=== PATIENT | male | born 1945 ===

== ENCOUNTER 2018-02-13 14:57 | Observation (INO) | payer MEDICARE, OTHER ==
[2018-02-13 15:38] LABS: BASO # 0.1 K/uL (0.0-0.2); EOS # 0.4 K/uL (0.0-0.7); EOS % 6.2 % (0.0-4.0); HEMOGLOBIN 13.4 g/dL (12.0-18.0); LYMPH # 1.3 K/uL (1.0-4.3); MEAN CELL VOLUME 86.7 fl (80.0-94.0); MEAN CORPUSCULAR HEMOGLOBIN 28.4 pg (27.0-31.0); MEAN CORPUSCULAR HGB CONC 32.8 g/dL (33.0-37.0); MEAN PLATELET VOLUME 11.1 fl (7.2-11.7); MONO # 0.7 K/uL (0.0-0.8); MONO % 12.3 % (0.0-10.0); NEUT # 3.3 K/uL (1.8-7.0); NEUT % 58.5 % (50.0-75.0); RBC 4.72 Mil/uL (4.40-5.90); RED CELL DISTRIBUTION WIDTH 15.1 % (11.5-14.5); WHITE BLOOD COUNT 5.7 K/uL (4.8-10.8)
[2018-02-13 15:50] LABS: ALBUMIN 3.9 g/dL (3.5-5.0); ALT/SGPT 89 U/L (21-72); AST/SGOT 114 U/L (17-59); BLOOD UREA NITROGEN 26 mg/dl (9-20); CALCIUM 10.1 mg/dL (8.4-10.2); GFR NON-AFRICAN AMERICAN 37
--- NOTE | 2018-02-13 16:00 | RAD ---
Date of service: 02/13/2018 HISTORY: chest pain/ r/o infiltrate COMPARISON: No prior. TECHNIQUE: Chest PA and lateral FINDINGS: LUNGS: No active pulmonary disease. PLEURA: No significant pleural effusion identified. No pneumothorax apparent. CARDIOVASCULAR: Normal. OSSEOUS STRUCTURES: No significant abnormalities. VISUALIZED UPPER ABDOMEN: Normal. OTHER FINDINGS: None. IMPRESSION: No active disease.
[2018-02-13 16:02] LABS: B-TYPE NATRIURETIC PEPTIDE 229 pg/ml (0-900)
--- NOTE | 2018-02-13 16:53 | ED PDOC ---
HPI: Chest Pain Time Seen by Provider: 02/13/18 15:21 Chief Complaint (Nursing): Chest Pain Chief Complaint (Provider): Chest Pain History Per: Patient History/Exam Limitations: no limitations Onset/Duration Of Symptoms: Hrs Additional Complaint(s): Patient is a 72 y/o male with history of hypertension and diabetes who presents to the ED with his family complaining of chest pain requiring nitro use x3 times this afternoon. Patient describes chest pain as sharp and left sided with radiation to shoulder associated with dizziness. Last time patient need nitro was x2 weeks ago when he was walking down the street. He denies history of cardiac catheters or stents. Patient states he takes aspirin daily. He has no other complaints at this time and denies any pain in the ER. PMD: Jasmyne Court Reporter: Haroon Past Medical History Reviewed: Historical Data, Nursing Documentation, Vital Signs Vital Signs: Last Vital Signs Temp 98 F 02/13/18 15:05 Pulse 64 02/13/18 15:05 Resp 20 02/13/18 15:05 BP 105/57 L 02/13/18 15:05 Pulse Ox 100 02/13/18 15:05 - Medical History PMH: HTN, Hyperlipidemia - Social History Current smoker - smoking cessation education provided: No - Allergies Allergies/Adverse Reactions: Allergies Allergy/AdvReac Type Severity Reaction Status Date / Time No Known Allergies Allergy Verified 02/13/18 15:05 Review of Systems ROS Statement: Except As Marked, All Systems Reviewed And Found Negative Cardiovascular: Positive for: Chest Pain Neurological: Positive for: Dizziness Physical Exam - Reviewed Nursing Documentation Reviewed: Yes Vital Signs Reviewed: Yes - Physical Exam Appears: Positive for: Non-toxic, No Acute Distress Head Exam: Positive for: ATRAUMATIC, NORMOCEPHALIC Skin: Positive for: Normal Color, Warm, Dry Eye Exam: Positive for: EOMI, Normal appearance, PERRL Neck: Positive for: Normal, Painless ROM Cardiovascular/Chest: Positive for: Regular Rate, Rhythm. Negative for: Murmur Respiratory: Positive for: Normal Breath Sounds. Negative for: Respiratory Distress Gastrointestinal/Abdominal: Positive for: Normal Exam, Soft. Negative for: Tenderness Back: Positive for: Normal Inspection. Negative for: L CVA Tenderness, R CVA Tenderness Extremity: Positive for: Normal ROM. Negative for: Pedal Edema, Deformity Neurologic/Psych: Positive for: Alert, Oriented. Negative for: Motor/Sensory Deficits - Laboratory Results Result Diagrams: 02/13/18 15:34 02/13/18 15:34 - ECG ECG Rhythm: Positive for: Normal QRS, Normal ST Segment Rate: 64 O2 Sat by Pulse Oximetry: 100 (RA) Pulse Ox Interpretation: Normal Medical Decision Making Medical Decision Making: Time: 15:21 Impression: Chest pain with dizziness Initial Plan: EKG BNP CMP Troponin I CBC w/ diff CXR Time: 15:56 FINDINGS: LUNGS: No active pulmonary disease. PLEURA: No significant pleural effusion identified. No pneumothorax apparent. CARDIOVASCULAR: Normal. OSSEOUS STRUCTURES: No significant abnormalities. VISUALIZED UPPER ABDOMEN: Normal. OTHER FINDINGS: None. IMPRESSION: No active disease. Time: 16:50 Blood work reviewed: -- Troponin is negative --mildly elevated kidney function EKG Reviewed: --NSR at 64; no ST changes - Scribe Attestation: Documented by Slade Gonzalez, acting as a scribe for Jose Marr MD. Provider Scribe Attestation: All medical record entries made by the Scribe were at my direction and personally dictated by me. I have reviewed the chart and agree that the record accurately reflects my personal performance of the history, physical exam, medical decision making, and the department course for this patient. I have also personally directed, reviewed, and agree with the discharge Disposition - Disposition
--- NOTE | 2018-02-13 18:47 | CP.PCM.CON ---
History of Present Illness - History of Present Illness History of Present Illness: Consultation for chest pain HPI: Patient is a 72 y/o male with history of hypertension and diabetes who presents to the ED with his family complaining of chest pain requiring nitro use x3 times this afternoon. Patient describes chest pain as sharp and left sided with radiation to shoulder associated with dizziness. Last time patient need nitro was x2 weeks ago when he was walking down the street. He denies history of cardiac catheters or stents. Patient states he takes aspirin daily. He has no other complaints at this time and denies any pain in the ER. PMD: Gastel Review of Systems - Review of Systems Systems not reviewed;Unavailable: Acuity of Condition - Constitutional Constitutional: As Per HPI - EENT Eyes: As Per HPI Ears: As Per HPI Nose/Mouth/Throat: As Per HPI - Cardiovascular Cardiovascular: As Per HPI - Respiratory Respiratory: As Per HPI - Gastrointestinal Gastrointestinal: As Per HPI - Genitourinary Genitourinary: As Per HPI - Reproductive: Male Reproductive:Male: As Per HPI - Musculoskeletal Musculoskeletal: As Per HPI - Integumentary Integumentary: As Per HPI - Neurological Neurological: As Per HPI - Psychiatric Psychiatric: As Per HPI - Endocrine Endocrine: As Per HPI - Hematologic/Lymphatic Hematologic: As Per HPI Past Patient History - Past Social History Smoking Status: Light Smoker < 10 Cigarettes Daily - CARDIAC Hx Hypertension: Yes - ENDOCRINE/METABOLIC Hx Diabetes Mellitus Type 1: Yes - PSYCHIATRIC Hx Substance Use: No - SURGICAL HISTORY Hx Surgeries: Yes Hx Herniorrhaphy: Yes - ANESTHESIA Hx Anesthesia: Yes Hx Anesthesia Reactions: No Hx Malignant Hyperthermia: Yes Meds Allergies/Adverse Reactions: Allergies Allergy/AdvReac Type Severity Reaction Status Date / Time No Known Allergies Allergy Verified 02/13/18 15:05 Physical Exam - Constitutional Appears: Well - Head Exam Head Exam: ATRAUMATIC, NORMAL INSPECTION, NORMOCEPHALIC - Eye Exam Eye Exam: EOMI, Normal appearance, PERRL Pupil Exam: NORMAL ACCOMODATION, PERRL - ENT Exam ENT Exam: Mucous Membranes Moist, Normal Exam - Neck Exam Neck exam: Positive for: Normal Inspection - Respiratory Exam Respiratory Exam: Clear to Auscultation Bilateral, NORMAL BREATHING PATTERN - Cardiovascular Exam Cardiovascular Exam: REGULAR RHYTHM - GI/Abdominal Exam GI & Abdominal Exam: Normal Bowel Sounds, Soft. absent: Tenderness - Extremities Exam Extremities exam: Positive for: normal inspection - Back Exam Back exam: NORMAL INSPECTION - Neurological Exam Neurological exam: Alert, CN II-XII Intact, Normal Gait, Oriented x3, Reflexes Normal - Psychiatric Exam Psychiatric exam: Normal Affect, Normal Mood - Skin Skin Exam: Dry, Intact, Normal Color, Warm Results - Vital Signs Recent Vital Signs: Last Vital Signs Temp 98 F 02/13/18 15:05 Pulse 62 02/13/18 18:42 Resp 19 02/13/18 18:42 BP 128/50 L 02/13/18 18:42 Pulse Ox 98 02/13/18 18:42 - Labs Result Diagrams: 02/13/18 15:34 02/13/18 15:34 Labs: Laboratory Results - last 24 hr 02/13/18 02/13/18 15:34 15:34 WBC 5.7 RBC 4.72 Hgb 13.4 Hct 40.9 MCV 86.7 MCH 28.4 MCHC 32.8 L RDW 15.1 H Plt Count 155 MPV 11.1 Neut % (Auto) 58.5 Lymph % (Auto) 22.0 [place] % (Auto) 12.3 H Eos % (Auto) 6.2 H Baso % (Auto) 1.0 Neut # (Auto) 3.3 Lymph # (Auto) 1.3 [place] # (Auto) 0.7 Eos # (Auto) 0.4 Baso # (Auto) 0.1 Sodium 139 Potassium 4.2 Chloride 105 Carbon Dioxide 22 Anion Gap 16 BUN 26 H Creatinine 1.8 H Est GFR ( Amer) 45 Est GFR (Non-Af Amer) 37 Random Glucose 185 H Calcium 10.1 Total Bilirubin 0.7 AST 114 H ALT 89 H Alkaline Phosphatase 113 Troponin I < 0.0120 NT-Pro-B Natriuret Pep 229 Total Protein 7.7 Albumin 3.9 Globulin 3.9 Albumin/Globulin Ratio 1.0 Assessment & Plan (1) Chest pain due to CAD Status: Acute
--- NOTE | 2018-02-13 19:12 | CP.PCM.HP ---
<Yandel Yoder - Last Filed: 02/13/18 21:43> History of Present Illness - History of Present Illness History of Present Illness: CC: "i had chest pain today" HPI: 72 y/o male with PMHx of HTN, IDDM2, Prostate CA presented for evaluation of chest pain. Pt reports he was sitting in a cigar lounge when he had a sudden onset of pressure like chest pain located on the left upper sternal area. It was nonradiating. He denied any other associated symptoms. Pt reports pain lasted approx 15 minutes and resolved after 3 SL tabs of nitroglycerin. He was then brought to the ER by EMS. He denies any further episodes of chest pain. Denies any history of fever/chills, headaches, changes in vision, [place]/exertional CP/orthopnea/palpitations, N/V/D/C, numbness/tingling. ROS: 12 systems reviewed, found to be negative unless otherwise mentioned in HPI PMD: Jasmyne Savings Teller: Haroon PMHx: HTN, IDDM, Glaucoma, Prostate CA Meds: as per med rec ALL: NKDA PSurgHx: cataracts/glaucoma, hernia repair SocialHx: former smoker (quit 20 years ago), social cigars, social ETOH, denies drugs Familyhx: OR in mother and brother Present on Admission - Present on Admission Any Indicators Present on Admission: No History of DVT/PE: No History of Uncontrolled Diabetes: No Urinary Catheter: No Decubitus Ulcer Present: No Past Patient History - Past Medical History & Family History Past Medical History?: Yes - Past Social History Smoking Status: Light Smoker < 10 Cigarettes Daily Alcohol: Social Drugs: Denies Home Situation {Lives}: With Family - CARDIAC Hx Hypertension: Yes - ENDOCRINE/METABOLIC Hx Diabetes Mellitus Type 1: Yes - PSYCHIATRIC Hx Substance Use: No - SURGICAL HISTORY Hx Surgeries: Yes Hx Herniorrhaphy: Yes - ANESTHESIA Hx Anesthesia: Yes Hx Anesthesia Reactions: No Hx Malignant Hyperthermia: Yes Meds Allergies/Adverse Reactions: Allergies Allergy/AdvReac Type Severity Reaction Status Date / Time No Known Allergies Allergy Verified 02/13/18 15:05 Physical Exam - Constitutional Appears: Non-toxic, No Acute Distress - Head Exam Head Exam: ATRAUMATIC, NORMOCEPHALIC - Eye Exam Eye Exam: EOMI, PERRL. absent: Nystagmus, Scleral icterus - ENT Exam ENT Exam: Mucous Membranes Moist - Neck Exam Neck exam: Negative for: Lymphadenopathy - Respiratory Exam Respiratory Exam: Clear to Auscultation Bilateral, NORMAL BREATHING PATTERN. absent: Accessory Muscle Use, Prolonged Expiratory Phase, Rales, Rhonchi, Wheezes - Cardiovascular Exam Cardiovascular Exam: REGULAR RHYTHM, RRR, +S1, +S2. absent: Gallop, Irregular Rhythm, JVD, Rubs, Systolic Murmur - GI/Abdominal Exam GI & Abdominal Exam: Normal Bowel Sounds, Soft. absent: Tenderness - Extremities Exam Extremities exam: Positive for: normal capillary refill, normal inspection, peda l pulses present. Negative for: calf tenderness, pedal edema, tenderness - Neurological Exam Neurological exam: Alert, CN II-XII Intact, Oriented x3 - Psychiatric Exam Psychiatric exam: Normal Affect, Normal Mood - Skin Skin Exam: Dry, Intact, Normal Color, Warm Results - Vital Signs Recent Vital Signs: Last Vital Signs Temp 98 F 02/13/18 15:05 Pulse 62 02/13/18 18:42 Resp 19 02/13/18 18:42 BP 128/50 L 02/13/18 18:42 Pulse Ox 98 02/13/18 18:42 - Labs Result Diagrams: 02/13/18 15:34 02/13/18 15:34 Labs: Laboratory Results - last 24 hr 02/13/18 02/13/18 15:34 15:34 WBC 5.7 RBC 4.72 Hgb 13.4 Hct 40.9 MCV 86.7 MCH 28.4 MCHC 32.8 L RDW 15.1 H Plt Count 155 MPV 11.1 Neut % (Auto) 58.5 Lymph % (Auto) 22.0 Bertie % (Auto) 12.3 H Eos % (Auto) 6.2 H Baso % (Auto) 1.0 Neut # (Auto) 3.3 Lymph # (Auto) 1.3 Bertie # (Auto) 0.7 Eos # (Auto) 0.4 Baso # (Auto) 0.1 Sodium 139 Potassium 4.2 Chloride 105 Carbon Dioxide 22 Anion Gap 16 BUN 26 H Creatinine 1.8 H Est GFR ( Amer) 45 Est GFR (Non-Af Amer) 37 Random Glucose 185 H Calcium 10.1 Total Bilirubin 0.7 AST 114 H ALT 89 H Alkaline Phosphatase 113 Troponin I < 0.0120 NT-Pro-B Natriuret Pep 229 Total Protein 7.7 Albumin 3.9 Globulin 3.9 Albumin/Globulin Ratio 1.0 Assessment & Plan - Assessment and Plan (Free Text) Assessment: 72 y/o male with PMHx of IDDM, HTN, and prostate CA admitted for evaluation of chest pain. Plan: 1) Chest Pain -EKG in ED unremarkable -troponin <0.0120 -NT-BNP: wnl -trend troponin Q6H -tele monitoring -AM EKG -cardiology consult -SL nitro PRN 2) HTN -controlled -resume home meds 3) IDDM -stable -lispro correction scale -resume home meds 4) Diet -heart healthy/mod carb 5) Prophylaxis -lovenox 40mg SC QD 6) Code Status -full code <Kain Muller - Last Filed: 02/14/18 09:27> Results - Vital Signs Recent Vital Signs: Last Vital Signs Temp 98.1 F 02/14/18 04:00 Pulse 60 02/14/18 09:15 Resp 18 02/14/18 04:47 BP 163/80 H 02/14/18 09:15 Pulse Ox 99 02/14/18 04:00 - Labs Result Diagrams: 02/13/18 15:34 02/13/18 15:34 Labs: Laboratory Results - last 24 hr 02/13/18 02/13/18 02/13/18 15:34 15:34 21:49 WBC 5.7 RBC 4.72 Hgb 13.4 Hct 40.9 MCV 86.7 MCH 28.4 MCHC 32.8 L RDW 15.1 H Plt Count 155 MPV 11.1 Neut % (Auto) 58.5 Lymph % (Auto) 22.0 Bertie % (Auto) 12.3 H Eos % (Auto) 6.2 H Baso % (Auto) 1.0 Neut # (Auto) 3.3 Lymph # (Auto) 1.3 Bertie # (Auto) 0.7 Eos # (Auto) 0.4 Baso # (Auto) 0.1 Sodium 139 Potassium 4.2 Chloride 105 Carbon Dioxide 22 Anion Gap 16 BUN 26 H Creatinine 1.8 H Est GFR ( Amer) 45 Est GFR (Non-Af Amer) 37 POC Glucose (mg/dL) 126 H Random Glucose 185 H Calcium 10.1 Total Bilirubin 0.7 AST 114 H ALT 89 H Alkaline Phosphatase 113 Troponin I < 0.0120 NT-Pro-B Natriuret Pep 229 Total Protein 7.7 Albumin 3.9 Globulin 3.9 Albumin/Globulin Ratio 1.0 02/14/18 02/14/18 06:30 09:20 WBC RBC Hgb Hct MCV MCH MCHC RDW Plt Count MPV Neut % (Auto) Lymph % (Auto) Bertie % (Auto) Eos % (Auto) Baso % (Auto) Neut # (Auto) Lymph # (Auto) Bertie # (Auto) Eos # (Auto) Baso # (Auto) Sodium Potassium Chloride Carbon Dioxide Anion Gap BUN Creatinine Est GFR ( Amer) Est GFR (Non-Af Amer) POC Glucose (mg/dL) 257 H Random Glucose Calcium Total Bilirubin AST ALT Alkaline Phosphatase Troponin I < 0.0120 NT-Pro-B Natriuret Pep Total Protein Albumin Globulin Albumin/Globulin Ratio Attending/Attestation - Attestation I have personally seen and examined this patient.: Yes I have fully participated in the care of the patient.: Yes I have reviewed all pertinent clinical information: Yes Notes (Text): 02/14/18 09:26 Patient was seen and examined with resident. Case was discussed and agreed with assessment and plan of management.
[2018-02-13] MEDS ORDERED: Dextrose 50% SYRINGE Inj (50 ml) IV PRN (19:16)
[2018-02-13] MEDS ORDERED: Glucagon Recombinant 1 mg Inj IM PRN (19:16)
[2018-02-13] MEDS: Insulin Lispro (humaLOG) 100 Units/ml Inj SC SCH (21:50)
[2018-02-13] MEDS ORDERED: Latanoprost 0.005% Opht SOUTION OU SCH (22:00)
[2018-02-13 23:59] VITALS: RESP 18; O2SAT 99
[2018-02-14 05:42] VITALS: TEMP 98.1
[2018-02-14] MEDS ORDERED: INSULIN GLARGINE HUM REC ANLOG 30 UNIT SC SCH (09:00)
[2018-02-14] MEDS: Brimonidine 0.2% 50 DROP/5 ML BOTTLE OU SCH ×2 (09:14→13:18)
[2018-02-14 09:17] VITALS: BP 163/80; PULSE 60
[2018-02-14] MEDS: Insulin Lispro (humaLOG) 100 Units/ml Inj SC SCH ×2 (09:23→13:00)
--- NOTE | 2018-02-14 10:43 | CARD ---
APPROVED REPORT Date of service: 02/13/2018 EKG Measurement Heart [id number] <Conclusion> Normal sinus rhythm Normal ECG
--- NOTE | 2018-02-14 10:59 | CARD ---
APPROVED REPORT Date of service: 02/14/2018 EXAM: Two-dimensional and M-mode echocardiogram with Doppler and color Doppler. Other Information Quality : GoodRhythm : NSR INDICATION Chest Pain 2D DIMENSIONS IVSd1.54 (0.7-1.1cm)LVDd4.46 (3.9-5.9cm) LVOT Diameter2.21 (1.8-2.4cm)PWd1.16 (0.7-1.1cm) IVSs1.74 (0.8-1.2cm)LVDs2.87 (2.5-4.0cm) FS (%) 35.5 %PWs1.34 (0.8-1.2cm) M-Mode DIMENSIONS Left Atrium (MM)5.66 (2.5-4.0cm)IVSd1.09 (0.7-1.1cm) Aortic Root3.87 (2.2-3.7cm)LVDd5.13 (4.0-5.6cm) Aortic Cusp Exc.2.22 (1.5-2.0cm)PWd1.06 (0.7-1.1cm) IVSs1.75 cmFS (%) 39 % LVDs3.14 (2.0-3.8cm)PWs1.42 cm Aortic Valve AoV Peak Dkihdowy786.2cm/sAoV VTI25.1cmAO Peak GR.6mmHg LVOT Peak Ulkzyziz910.7cm/sLVOT VTI25.28cmAO Mean GR.4mmHg JENNI (VMAX)1.45zr0JAP (VTI)1.79cm2 Mitral Valve MV E Qnhpxocw53.8cm/sMV DECEL [id number] A Nkkxmaip59.4cm/s MV QWR58lfM/A ratio1.1MVA (PHT)3.49cm2 TDI Lateral E' Peak V8.31cm/sMedial E' Peak V8.23cm/sE/Lateral E'10.9 E/Medial E'11.0 Tricuspid Valve TR Peak Aefvyfgp340he/sRAP QEGPVATU45tuVsOS Peak Gr.21mmHg [id number] LEFT VENTRICLE The left ventricle is normal size. There is borderline concentric left ventricular hypertrophy. The left ventricular systolic function is normal. The estimated ejection fraction is 60-65% No regional wall motion abnormalities noted.. Transmitral Doppler flow pattern is Grade II-pseudonormal filling dynamics. No left ventricle thrombus noted on this study. There is no ventricular septal defect visualized. There is no left ventricular aneurysm. There is no mass noted in the left ventricle. RIGHT VENTRICLE The right ventricle is normal size. There is normal right ventricular wall thickness. The right ventricular systolic function is normal. ATRIA The left atrium is mildly dilated. The right atrium size is normal. The interatrial septum is intact with no evidence for an atrial septal defect. AORTIC VALVE The aortic valve is normal in structure. No aortic regurgitation is present. There is no aortic valvular stenosis. There is no aortic valvular vegetation. MITRAL VALVE The mitral valve is normal in structure. There is no evidence of mitral valve prolapse. There is no mitral valve stenosis. There is trace mitral valve regurgitation noted. TRICUSPID VALVE The tricuspid valve is normal in structure. There is mild tricuspid valve regurgitation noted. RVSP is calculated at 30 mm Hg. There is no tricuspid valve prolapse or vegetation. There is no tricuspid valve stenosis. PULMONIC VALVE The pulmonary valve is normal in structure. There is no pulmonic valvular regurgitation. There is no pulmonic valvular stenosis. GREAT VESSELS The aortic root is normal in size. The ascending aorta is normal in size. The pulmonary artery is normal. The IVC is normal in size and collapses >50% with inspiration. PERICARDIAL EFFUSION There is no pericardial effusion. There is no pleural effusion. <Conclusion> The estimated ejection fraction is 60-65%. There is borderline concentric left ventricular hypertrophy. Transmitral Doppler flow pattern is Grade II-pseudonormal filling dynamics. The left atrium is mildly dilated. There is trace mitral valve regurgitation noted. There is mild tricuspid valve regurgitation noted. RVSP is calculated at 30 mm Hg.
--- NOTE | 2018-02-14 12:34 | CP.PCM.DIS ---
Provider - Provider Date of Admission: 02/13/18 17:56 Attending physician: Kain Muller MD Time Spent in preparation of Discharge (in minutes): 30 Diagnosis - Discharge Diagnosis (1) Chest pain Status: Acute Hospital Course - Lab Results Lab Results: Most Recent Lab Values WBC 5.7 K/uL (4.8-10.8) 02/13/18 15:34 RBC 4.72 Mil/uL (4.40-5.90) 02/13/18 15:34 Hgb 13.4 g/dL (12.0-18.0) 02/13/18 15:34 Hct 40.9 % (35.0-51.0) 02/13/18 15:34 MCV 86.7 fl (80.0-94.0) 02/13/18 15:34 MCH 28.4 pg (27.0-31.0) 02/13/18 15:34 MCHC 32.8 g/dL (33.0-37.0) L 02/13/18 15:34 RDW 15.1 % (11.5-14.5) H 02/13/18 15:34 Plt Count 155 K/uL (130-400) 02/13/18 15:34 MPV 11.1 fl (7.2-11.7) 02/13/18 15:34 Neut % (Auto) 58.5 % (50.0-75.0) 02/13/18 15:34 Lymph % (Auto) 22.0 % (20.0-40.0) 02/13/18 15:34 [place] % (Auto) 12.3 % (0.0-10.0) H 02/13/18 15:34 Eos % (Auto) 6.2 % (0.0-4.0) H 02/13/18 15:34 Baso % (Auto) 1.0 % (0.0-2.0) 02/13/18 15:34 Neut # (Auto) 3.3 K/uL (1.8-7.0) 02/13/18 15:34 Lymph # (Auto) 1.3 K/uL (1.0-4.3) 02/13/18 15:34 [place] # (Auto) 0.7 K/uL (0.0-0.8) 02/13/18 15:34 Eos # (Auto) 0.4 K/uL (0.0-0.7) 02/13/18 15:34 Baso # (Auto) 0.1 K/uL (0.0-0.2) 02/13/18 15:34 Sodium 139 mmol/l (132-148) 02/13/18 15:34 Potassium 4.2 MMOL/L (3.6-5.0) 02/13/18 15:34 Chloride 105 mmol/L (98-107) 02/13/18 15:34 Carbon Dioxide 22 mmol/L (22-30) 02/13/18 15:34 Anion Gap 16 (10-20) 02/13/18 15:34 BUN 26 mg/dl (9-20) H 02/13/18 15:34 Creatinine 1.8 mg/dl (0.8-1.5) H 02/13/18 15:34 Est GFR ( Amer) 45 02/13/18 15:34 Est GFR (Non-Af Amer) 37 02/13/18 15:34 POC Glucose (mg/dL) 257 mg/dL (65-110) H 02/14/18 09:20 Random Glucose 185 mg/dL (75-110) H 02/13/18 15:34 Calcium 10.1 mg/dL (8.4-10.2) 02/13/18 15:34 Total Bilirubin 0.7 mg/dl (0.2-1.3) 02/13/18 15:34 AST 114 U/L (17-59) H 02/13/18 15:34 ALT 89 U/L (21-72) H 02/13/18 15:34 Alkaline Phosphatase 113 U/L (38-126) 02/13/18 15:34 Troponin I < 0.0120 ng/mL (0.00-0.120) 02/14/18 06:30 NT-Pro-B Natriuret Pep 229 pg/ml (0-900) 02/13/18 15:34 Total Protein 7.7 G/DL (6.3-8.2) 02/13/18 15:34 Albumin 3.9 g/dL (3.5-5.0) 02/13/18 15:34 Globulin 3.9 gm/dL (2.2-3.9) 02/13/18 15:34 Albumin/Globulin Ratio 1.0 (1.0-2.1) 02/13/18 15:34 - Hospital Course Hospital Course: 2 y/o male with PMHx of IDDM, HTN, and prostate CA admitted for evaluation of chest pain. 1) Chest Pain ( Resolved) -EKG in ED unremarkable -Troponin x 2 negative -NT-BNP: wnl - Echo : 60- 65 % EF -trend troponin Q6H -Cardology was consulted - F/U with director information security. Currently asymptomatic. Chest pain has resolved 2) HTN -controlled -resume home meds 3) IDDM -stable -resume home meds Discharge Exam - Head Exam Head Exam: ATRAUMATIC, NORMOCEPHALIC - Eye Exam Eye Exam: Normal appearance - Respiratory Exam Respiratory Exam: Clear to PA & Lateral, NORMAL BREATHING PATTERN, UNREMARKABLE. absent: Rales, Rhonchi, Wheezes, Respiratory Distress - GI/Abdominal Exam GI & Abdominal Exam: Normal Bowel Sounds, Soft. absent: Tenderness - Neurological Exam Neurological exam: CN II-XII Intact, Normal Gait, Oriented x3 - Psychiatric Exam Psychiatric exam: Normal Affect, Normal Mood - Skin Skin Exam: Normal Color, Warm Discharge Plan - Follow Up Plan Condition: GUARDED Disposition: HOME/ ROUTINE Instructions: Chest Pain Additional Instructions: Follow up with PMD. If symptoms worsen or reoccur please return to the ER Referrals: Boogie Majano MD [Medical Doctor] - Adalberto Patiño MD [Medical Doctor] -
== END 2018-02-14 14:45 | disposition home or self-care (01) ==
LOC: H.ER 14:57 → H.ERHOLD 17:56 → H.TEL 21:13
DX: R07.9 Chest pain, unspecified (principal); E10.9 Type 1 diabetes mellitus without complications; E78.5 Hyperlipidemia, unspecified; H40.9 Unspecified glaucoma; I10 Essential (primary) hypertension; Z79.4 Long term (current) use of insulin; Z79.82 Long term (current) use of aspirin; Z82.49 Family history of ischemic heart disease and other diseases of the circulatory system; Z85.46 Personal history of malignant neoplasm of prostate; Z87.891 Personal history of nicotine dependence
CPT/HCPCS: 36415; 71046; 80053; 82948; 83880; 84484; 85025; 93005; 93306; 99285; G0378

== ENCOUNTER 2018-03-15 04:00 | Inpatient (IN) | payer MEDICARE, OTHER ==
[2018-03-15] MEDS ORDERED: Alum-Mag Hydrox-Simethicone Susp (30 mL) PO STA ×2 (04:28→10:23)
--- NOTE | 2018-03-15 04:33 | ED PDOC ---
HPI: General Adult Chief Complaint (Provider): CHEST PAIN History Per: Patient (72 Y/O MALE H/O DM/HTN HERE WITH CHEST PAIN SINCE MIDNIGHT ONGOING NOTED PRESSURE RADIATING TO EPIGASTRIC REGION. IMELDA WAS SEEN 02/12/2018 FOR SIMILAR COMPLAINT AND ADMITTED WITH ECHO/TROPONIN WNL. TODAY TOOK NITRO SLG X 3 PRIOR TO CALLING AMBULANCE. DENIES ANY COUGH/FEVER/ETC. DENIES ANY ASSOCIATION WITH FOOD.) <Minh Nieves - Last Filed: 03/15/18 05:53> <Julián Acevedo - Last Filed: 03/15/18 06:32> Time Seen by Provider: 03/15/18 04:12 Chief Complaint (Nursing): Abdominal Pain Past Medical History Reviewed: Historical Data, Nursing Documentation, Vital Signs Vital Signs: Last Vital Signs Temp 97.5 F L 03/15/18 04:08 Pulse 89 03/15/18 04:08 Resp 17 03/15/18 04:08 BP 161/75 H 03/15/18 04:08 Pulse Ox 98 03/15/18 04:08 - Medical History PMH: HTN, Hyperlipidemia - Family History Family History: States: Unknown Family Hx <Minh Nieves - Last Filed: 03/15/18 05:53> Vital Signs: Last Vital Signs Temp 98.8 F 03/15/18 05:46 Pulse 101 H 03/15/18 05:46 Resp 19 03/15/18 05:46 BP 159/73 H 03/15/18 05:46 Pulse Ox 98 03/15/18 05:53 <Julián Acevedo - Last Filed: 03/15/18 06:32> - Home Medications Home Medications: Ambulatory Orders Medication Instructions Recorded Aspirin 325 mg PO DAILY 02/13/18 Brimonidine Tartrate/Timolol 1 drop EACHEYE Q12 02/13/18 [Combigan 0.2%-0.5% Eye Drops] Carvedilol [Coreg] 12.5 mg PO Q12 02/13/18 Insulin Glargine,Hum.rec.anlog 30 unit SC DAILY 02/13/18 [Cristela Solostaleksandr] Leuprolide Acetate [Eligard] 22.5 mg SC Q3M 02/13/18 Nitroglycerin [Nitrostat] 0.4 mg SL Q5MIN PRN 02/13/18 Olmesartan/Hydrochlorothiazide 1 tab PO DAILY 02/13/18 [Benicar Hct 40-12.5 mg Tablet] Tamsulosin [Flomax] 0.4 mg PO DAILY 02/13/18 Travoprost [Travatan Z] 1 drop EACHEYE HS 02/13/18 - Allergies Allergies/Adverse Reactions: Allergies Allergy/AdvReac Type Severity Reaction Status Date / Time No Known Allergies Allergy Verified 03/15/18 04:11 Review of Systems ROS Statement: Except As Marked, All Systems Reviewed And Found Negative <Minh Nieves - Last Filed: 03/15/18 05:53> Physical Exam - Reviewed Nursing Documentation Reviewed: Yes Vital Signs Reviewed: Yes - Physical Exam Appears: Positive for: Well, Non-toxic, No Acute Distress Head Exam: Positive for: ATRAUMATIC, NORMAL INSPECTION, NORMOCEPHALIC Skin: Positive for: Normal Color, Warm, DRY Eye Exam: Positive for: EOMI, Normal appearance, PERRL ENT: Positive for: Normal ENT Inspection Neck: Positive for: Normal, Painless ROM Cardiovascular/Chest: Positive for: Regular Rate, Rhythm Respiratory: Positive for: CNT, Normal Breath Sounds Gastrointestinal/Abdominal: Positive for: Normal Exam, Soft Back: Positive for: Normal Inspection Extremity: Positive for: Normal ROM Neurologic/Psych: Positive for: Alert, Oriented <Minh Nieves - Last Filed: 03/15/18 05:53> - Laboratory Results Result Diagrams: 03/15/18 04:48 03/15/18 04:48 - ECG ECG Rhythm: Positive for: Sinus Rhythm (NSR 95BPM; NO ECTOPY NO ACUTE CHANGES; T WAVE LEAD V2) O2 Sat by Pulse Oximetry: 98 - Progress ED Course And Treament: INITIAL EKG: T WAVE INVERSION V2 initially given maalox 30 ml po with minimal relief. Nitro slg x 1 dose with minimal relief. morphine 2 mg iv x 1 dose lopressor 5 mg iv x 1 dose ASA 324 MG X 1 DOSE Patient notes persistent abd pain morphine 2 mg iv x 2nd dose Repeat BP 153/70 Repeat EKG NSR 95 bpm; no ectopy no acute changes noted. CXR: cardiomegaly; mild pulmonary congestion CTA CHEST/ABD/PELVIS ORDERED <Minh Nieves - Last Filed: 03/15/18 05:53> - Laboratory Results Result Diagrams: 03/15/18 04:48 03/15/18 04:48 <Julián Acevedo - Last Filed: 03/15/18 06:32> Medical Decision Making Medical Decision Making: Time: 0700 -- Patient endorsed to Dr. Gibbs, pending CT results, re-evaluation and final ER disposition. Scribe Attestation: Documented by Xiomara Grace, acting as a scribe for Julián Acevedo MD. Provider Scribe Attestation: All medical record entries made by the Scribe were at my direction and personally dictated by me. I have reviewed the chart and agree that the record accurately reflects my personal performance of the medical decision making and disposition for this patient. I have also personally directed, reviewed, and agree with the discharge instructions and disposition. <Julián Acevedo - Last Filed: 03/15/18 06:32> Disposition - Patient ED Disposition Is Patient to be Admitted: Transfer of Care - Disposition Disposition: Transfer of Care Disposition Time: 06:00 Patient Signed Over To: Julián Acevedo Handoff Comments: PENDING CTA CHEST/ABD/PELVIS <Minh Nieves - Last Filed: 03/15/18 05:53> - Patient ED Disposition Is Patient to be Admitted: Transfer of Care - Disposition Disposition: Transfer of Care Disposition Time: 07:00 Patient Signed Over To: Mariana Gibbs Handoff Comments: pending CT, re-evaluation and final ER disposition. <Julián Acevedo - Last Filed: 03/15/18 06:32> - Clinical Impression Clinical Impression: Chest pain, Abdominal pain - Disposition Condition: FAIR
[2018-03-15] MEDS ORDERED: Metoprolol 1 mg/ml Inj IVP STA ×2 (04:52→10:06)
[2018-03-15 05:00] LABS: BASO # 0.1 K/uL (0.0-0.2); EOS # 0.1 K/uL (0.0-0.7); EOS % 1.3 % (0.0-4.0); HEMOGLOBIN 15.4 g/dL (12.0-18.0); LYMPH # 0.7 K/uL (1.0-4.3); LYMPH % 7.6 % (20.0-40.0); MEAN CELL VOLUME 85.5 fl (80.0-94.0); MEAN CORPUSCULAR HEMOGLOBIN 27.9 pg (27.0-31.0); MEAN CORPUSCULAR HGB CONC 32.7 g/dL (33.0-37.0); MONO # 0.2 K/uL (0.0-0.8); MONO % 2.4 % (0.0-10.0); NEUT # 8.2 K/uL (1.8-7.0); NEUT % 87.7 % (50.0-75.0); NRBC % 0.1 % (0.0-0.0); PLATELET COUNT 138 K/uL (130-400); RED CELL DISTRIBUTION WIDTH 15.1 % (11.5-14.5); WHITE BLOOD COUNT 9.4 K/uL (4.8-10.8)
[2018-03-15 05:31] LABS: ALBUMIN 4.6 g/dL (3.5-5.0); ALT/SGPT 71 U/L (21-72); AST/SGOT 89 U/L (17-59); BLOOD UREA NITROGEN 21 mg/dl (9-20); CALCIUM 10.5 mg/dL (8.4-10.2); GFR NON-AFRICAN AMERICAN 60; LIPASE 423 U/L (23-300)
[2018-03-15 05:43] LABS: BASOPHIL 1 % (0-2); LYMPHOCYTE 7 % (20-50); MONOCYTE 4 % (0-10); NEUTROPHIL 88 % (42-75); PLATELET ESTIMATE NORMAL (NORMAL); TOTAL CELLS COUNTED 100
[2018-03-15] MEDS ORDERED: Sodium Chloride 0.9% 100 ML ONE ×2 (06:27→07:02)
[2018-03-15] MEDS ORDERED: Iodixanol 320 MG/ML 100 ML BOTTLE IV ONE ×2 (06:27→07:01)
--- NOTE | 2018-03-15 08:22 | RAD ---
Date of service: 03/15/2018 HISTORY: cp COMPARISON: 02/13/2018 FINDINGS: LUNGS: Mild bibasilar volume loss is appreciated. PLEURA: No significant pleural effusion identified, no pneumothorax apparent. CARDIOVASCULAR: Mild aortic atherosclerotic calcification present. Top-normal size heart. Possible slight vascular congestion. OSSEOUS STRUCTURES: No significant abnormalities. VISUALIZED UPPER ABDOMEN: Normal. OTHER FINDINGS: None. IMPRESSION: Possible slight vascular congestion and mild bibasilar volume loss.
--- NOTE | 2018-03-15 08:34 | CARD ---
APPROVED REPORT Date of service: 03/15/2018 EKG Measurement Heart [id number] <Conclusion> Normal sinus rhythm Possible Left atrial enlargement Borderline ECG
--- NOTE | 2018-03-15 08:34 | CARD ---
APPROVED REPORT Date of service: 03/15/2018 EKG Measurement Heart [id number] <Conclusion> Normal sinus rhythm Nonspecific T wave abnormality Abnormal ECG
[2018-03-15] MEDS ORDERED: Labetalol 5mg/ml (4ml) IVP STA (10:22)
--- NOTE | 2018-03-15 10:28 | ED PDOC ---
- Laboratory Results Result Diagrams: 03/15/18 04:48 03/15/18 04:48 - ECG O2 Sat by Pulse Oximetry: 94 Medical Decision Making Medical Decision Making: endorsed by Dr. Acevedo. patient was pending results of CT prior to admission. Patient's PCP is Dr. Majano per report. Dr. Floyd usually admits for Dr. Prescott. Case d/w Dr. Floyd. Wants to ICU consult for chest pain. Patient seen by Dr. Nieves. Management suggestions made. Orders place. Patient admitted to telemetry. Disposition Doctor Will See Patient In The: Hospital - Clinical Impression Clinical Impression: Chest pain, Abdominal pain - POA Present On Arrival: None - Disposition Disposition: Transfer of Care Disposition Time: 10:15 Condition: FAIR
[2018-03-15] MEDS ORDERED: Labetalol 5mg/ml (4ml) ONE (10:31)
[2018-03-15] MEDS ORDERED: Alum-Mag Hydrox-Simethicone Susp (30 mL) ONE (10:31)
--- NOTE | 2018-03-15 10:35 | CP.PCM.CON ---
History of Present Illness - History of Present Illness History of Present Illness: 72 y/o male with pmx of Dm, h/o ASHD presents to [facility] with c/o abdominal pain. Patient c/o sharp pain left upper quadrant with radiation to left lower quadrant. Patient denies any etoh, denies any illicit drugs. Patient denies any chest pain. Er performed CT angio results pending. Pmx: dM Psug hx: denies allergeid: NKDA SH: denies illicit drugs Review of Systems - Review of Systems All systems: reviewed and no additional remarkable complaints except Past Patient History - Past Medical History & Family History Past Medical History?: Yes - Past Social History Smoking Status: Never Smoked - CARDIAC Hx Hypertension: Yes - PULMONARY Hx Respiratory Disorders: Yes Hx Asthma: Yes - ENDOCRINE/METABOLIC Hx Diabetes Mellitus Type 1: Yes - MUSCULOSKELETAL/RHEUMATOLOGICAL Hx Falls: No - PSYCHIATRIC Hx Substance Use: No - SURGICAL HISTORY Hx Surgeries: Yes Hx Herniorrhaphy: Yes - ANESTHESIA Hx Anesthesia: Yes Hx Anesthesia Reactions: No Hx Malignant Hyperthermia: Yes Meds Allergies/Adverse Reactions: Allergies Allergy/AdvReac Type Severity Reaction Status Date / Time No Known Allergies Allergy Verified 03/15/18 04:11 - Medications Medications: Current Medications Nitroglycerin (Nitrostat Sl Tab) 0.4 mg SL Q5M PRN PRN Reason: Pain, severe (8-10) Last Admin: 03/15/18 04:43 Dose: 0.4 mg Physical Exam - Head Exam Head Exam: ATRAUMATIC, NORMAL INSPECTION, NORMOCEPHALIC - Eye Exam Eye Exam: EOMI - ENT Exam ENT Exam: Mucous Membranes Moist - Respiratory Exam Respiratory Exam: Clear to Auscultation Bilateral, NORMAL BREATHING PATTERN - Cardiovascular Exam Cardiovascular Exam: REGULAR RHYTHM, +S1, +S2 - GI/Abdominal Exam GI & Abdominal Exam: Normal Bowel Sounds, Soft, Tenderness. absent: Guarding - Extremities Exam Extremities exam: Positive for: normal inspection Results - Vital Signs Recent Vital Signs: Last Vital Signs Temp 98.8 F 03/15/18 05:46 Pulse 80 03/15/18 10:14 Resp 18 03/15/18 10:14 BP 187/91 H 03/15/18 10:14 Pulse Ox 94 L 03/15/18 10:28 - Labs Result Diagrams: 03/15/18 04:48 03/15/18 04:48 Labs: Laboratory Results - last 24 hr 03/15/18 03/15/18 03/15/18 04:48 04:48 05:27 WBC 9.4 D RBC 5.50 Hgb 15.4 D Hct 47.1 MCV 85.5 MCH 27.9 MCHC 32.7 L RDW 15.1 H Plt Count 138 MPV 11.0 Neut % (Auto) 87.7 H Lymph % (Auto) 7.6 L [place] % (Auto) 2.4 Eos % (Auto) 1.3 Baso % (Auto) 1.0 Neut # (Auto) 8.2 H Lymph # (Auto) 0.7 L [place] # (Auto) 0.2 Eos # (Auto) 0.1 Baso # (Auto) 0.1 Neutrophils % (Manual) 88 H Lymphocytes % (Manual) 7 L Monocytes % (Manual) 4 Basophils % (Manual) 1 Platelet Estimate Normal Sodium 139 Potassium 4.5 Chloride 101 Carbon Dioxide 26 Anion Gap 17 BUN 21 H Creatinine 1.2 Est GFR ( Amer) > 60 Est GFR (Non-Af Amer) 60 Random Glucose 180 H Calcium 10.5 H Magnesium 1.3 L Total Bilirubin 1.7 H AST 89 H D ALT 71 Alkaline Phosphatase 143 H D Troponin I < 0.0120 NT-Pro-B Natriuret Pep 115 Total Protein 9.1 H Albumin 4.6 Globulin 4.5 H Albumin/Globulin Ratio 1.0 Lipase 423 H Assessment & Plan - Assessment and Plan (Free Text) Assessment: Abdominal PAIn: suspect pancratitis, NPO, IVF at 125 ml/hr, obtain Gi consult, FOB -HTN: BP high 2nd pain, labetalol IV now, PRN IV -IV PPI -DM: NPO, ISS lispro q6hrs, check TSh adn HBA1c -hypercapcemia: possibel 2ndehdyration, contineu IVF NS, cehck SPEP/UPEP -at risk fo CAD: please obtain cardiology consult for optimization of ASHD medications -dvt ppx heparin sq -abdominal pain: PRN dilaudid 0.5 mg q6hrs PRN -PUD rx prortonix Please call ICU if patient's clinical status worsens. - Date & Time Date: 03/15/18 Time: 10:37
[2018-03-15] MEDS ORDERED: Sodium Chloride 0.9% 1,000 ML IV SCH (10:45)
[2018-03-15 14:15] LABS: TROPONIN I 0.014 ng/mL (0.00-0.120)
--- NOTE | 2018-03-15 14:33 | CT ---
Date of service: 03/15/2018 PROCEDURE: CT Chest, Abdomen and Pelvis with and without intravenous contrast HISTORY: chest pain radiating to abdomen. COMPARISON: None available. TECHNIQUE: IV dose administered: [address] scan of the chest, abdomen, and pelvis was 1st performed without the use of intravenous contrast. CT scan was then obtained after the administration of intravenous contrast. Multiplanar imaging was reformatted. Radiation dose: Total exam DLP = 725.38 mGy-cm. This CT exam was performed using one or more of the following dose reduction techniques: Automated exposure control, adjustment of the mA and/or kV according to patient size, and/or use of iterative reconstruction technique. FINDINGS: CT CHEST WITH CONTRAST: LUNGS: Mild nonspecific interstitial changes are noted as well as bilateral lower lobe areas of subsegmental atelectasis and/or compressive atelectasis. Mild areas of additional ground-glass are seen in the lower lobe regions which may suggest chronic compression atelectasis and/or mild nonspecific chronic alveolar disease. No definite segmental infiltrate is noted. No pulmonary nodule is clearly seen.. Within the right side of the trachea there is a small amount of subtle nodularity with a mild amount of linear density seen within the trachea. This may reflect adherent mucus products. Small tracheal polyp however is not excluded. No other tracheal abnormality is apparent. MEDIASTINUM: There is evidence of a few small mediastinal lymph nodes in the anterior mediastinum, prevascular region, and right paratracheal region. Additional lymph node is seen in the left lateral carinal region. These may reflect postinflammatory lymph nodes but will require further clinical follow-up. No hilar adenopathy is seen. Noncontrast images fail to reveal evidence of intramural hematoma. There is however moderate atherosclerotic mural plaque within the aorta with very mild aneurysmal dilatation of the ascending aorta measuring 3.7 centimeters in maximal diameter. No intimal flap to suggest aortic dissection is seen. Additional calcific atherosclerotic changes seen in the descending thoracic aorta without aneurysm. Some mural areas of thrombus are seen within the descending thoracic aorta. LYMPH NODES: See above. PLEURA: No pleural effusion. No pneumothorax. BONES: Degenerative changes are seen in the spine. No fracture is seen. OTHER FINDINGS: None. CT ABDOMEN AND PELVIS: LIVER: Injection timing limits evaluation of the liver. Mild fatty infiltration is not excluded. No focal liver mass or intrahepatic ductal dilatation is seen. GALLBLADDER AND BILE DUCTS: Unremarkable. PANCREAS: Unremarkable. No gross lesion or ductal dilatation. SPLEEN: Unremarkable. ADRENALS: Unremarkable. No mass. KIDNEYS AND URETERS: Left kidney on the noncontrast images has a mild amount of vascular calcification in the left renal pelvis region. Postcontrast images show no evidence of hydronephrosis, mass, or infarct. Very mild nonspecific perinephric changes are seen adjacent to the left kidney. Right kidney: On the noncontrast examination is there appear to be chronic areas of calcification within the posterior aspect of the mid to upper pole of the right kidney. There is also calcifications identified in the right renal pelvis. Largest measure at least 11 millimeters in size. This appears to be causing some chronic elements of obstruction and ureteral dilatation. There are also multiple nonenhancing renal cystic lesions identified extending into the mid and lower pole region of the right kidney. There is moderate renal cortical thinning adjacent to these regions. No solid lesions are clearly seen in the right kidney. VASCULATURE: Scattered mural plaque throughout the aorta without aneurysmal dilatation. No aortic aneurysm. BOWEL: No small bowel dilatation is seen. Mild chronic diverticular changes are seen in the sigmoid colon region. Terminal ileum is unremarkable. APPENDIX: There is evidence of a dilated fluid-filled appendix measuring up to 11 millimeters in size. On a few of the images there appears to be the suggestion of some mild periappendiceal inflammatory changes. There is also some mild fluid noted extending into the right inferior paracolic gutter just posterior to the cecum. Subclinical appendicitis cannot be excluded. No focal fluid collection to suggest perforation or abscess is noted. PERITONEUM: Mild ascites is seen in the right lower quadrant region. No evidence of free intraperitoneal air. No mesenteric thickening seen. There is also a minimal amount of fluid seen in the left side of the pelvis. LYMPH NODES: Mild nonspecific scattered lymph nodes in the celiac and SMA region. No significant retroperitoneal adenopathy or inguinal adenopathy. BLADDER: Unremarkable. REPRODUCTIVE: Prostate gland is enlarged. BONES: No fracture seen. No lytic process noted. OTHER FINDINGS: No inguinal hernias. IMPRESSION: No CT scan evidence of aortic dissection. No CT scan evidence of pulmonary embolism. Atherosclerotic changes of the aorta with minor aneurysmal dilatation in the ascending aorta. Nonspecific interstitial changes and dependent atelectasis at the lung bases with mild nonspecific subtle ground-glass. Mild nonspecific scattered mediastinal adenopathy, more than likely reactive. Dilated fluid-filled appendix with some possible subtle adjacent inflammatory changes. Subclinical appendicitis is not excluded on this examination. This was not mentioned on the preliminary report and was placed into the PA review folder. Probable chronic obstructive changes of the right kidney with cortical thinning and scarring. There also a large of septated nonenhancing cysts seen extending from the inferior and mid pole region of the right kidney. Findings may reflect chronic staghorn calculus although no definite enhancement to suggest xanthogranulomatous pyelonephritis is seen. A portion of the cyst may be parapelvic although there does appear to be some elements of right renal chronic hydronephrosis. Left kidney is unremarkable. Report was called to the emergency room PA at the time of this dictation..
[2018-03-15 14:49] LABS: OPIATES, UR POSITIVE (NEGATIVE); PHENCYCLIDINE, UR NEGATIVE (NEGATIVE)
[2018-03-15 14:50] LABS: BARBITURATES, UR NEGATIVE (NEGATIVE); BENZODIAZEPINES, UR NEGATIVE (NEGATIVE)
[2018-03-15] MEDS ORDERED: Vancomycin 1 g Inj ONE (15:28)
--- NOTE | 2018-03-15 15:38 | ED PDOC ---
ED Additional Note - Date & Time of Evaluation Date of Evaluation: 03/15/18 Time of Evaluation: 15:30 - Physician Additional Note Physician Additional Note: Pt admitted earlier for abd pain under Dr Floyd. Official radiology reading of CT scan now concerning for subclinical appendicitis. Abdominal exam demonstrates epigsatric pain, neg mcburney's point ttp. Dr Floyd made aware and requests surgery consult. Dr Fu Surgery consult and Dr Moreland Resident made aware.
--- NOTE | 2018-03-15 16:10 | CP.PCM.CON ---
History of Present Illness - History of Present Illness History of Present Illness: Surgery 72 M w PMH of Dm, HTN and PSH of umbilical hernia repair came with abd pain. Pain was around the mid abdomen area started yesterday and now migrated to lower abdomen. Pain is worst on RLQ. Denies fever, nausea, vomiting, diarrhea, hematuria, dysuria, hematochezia, hematemesis, weight loss, SOB. PT came with CP as well and got the ACS work up done. Trop was neg. CT shows no aortic dissection. CT shows dilated fluid filled appendix 1.1cm with surrounding inflammation. R kidney stones were seen. WBC 9 with 88% neutrophill. Lactate was 5.3. Surgery is consulted to evaluate for appendicitis. PMH DM HTN PSH umbilical hernia repair 4 yrs ago SS drinks whiskey daily , smokes cigars, marijuana Review of Systems - Review of Systems Review of Systems: See HPI Past Patient History - Past Medical History & Family History Past Medical History?: Yes - Past Social History Smoking Status: Never Smoked - CARDIAC Hx Hypertension: Yes - PULMONARY Hx Respiratory Disorders: Yes Hx Asthma: Yes - ENDOCRINE/METABOLIC Hx Diabetes Mellitus Type 1: Yes - MUSCULOSKELETAL/RHEUMATOLOGICAL Hx Falls: No - PSYCHIATRIC Hx Substance Use: No - SURGICAL HISTORY Hx Surgeries: Yes Hx Herniorrhaphy: Yes - ANESTHESIA Hx Anesthesia: Yes Hx Anesthesia Reactions: No Hx Malignant Hyperthermia: Yes Meds Allergies/Adverse Reactions: Allergies Allergy/AdvReac Type Severity Reaction Status Date / Time No Known Allergies Allergy Verified 03/15/18 04:11 - Medications Medications: Current Medications Hydromorphone HCl (Dilaudid) 0.5 mg IVP Q6H PRN PRN Reason: Pain, severe (8-10) Sodium Chloride (Sodium Chloride 0.9%) 1,000 mls @ 100 mls/hr IV .Q10H AMY Stop: 03/16/18 10:42 Last Admin: 03/15/18 11:40 Dose: 100 mls/hr Vancomycin HCl 1 gm/ Sodium (Chloride) 250 mls @ 166.667 mls/hr IVPB STAT STA; Protocol Stop: 03/15/18 16:13 Last Admin: 03/15/18 15:32 Dose: 166.667 mls/hr Piperacillin Sod/Tazobactam (Sod 3.375 gm/ Sodium Chloride) 100 mls @ 100 mls/hr IVPB Q12 AMY; Protocol Nitroglycerin (Nitrostat Sl Tab) 0.4 mg SL Q5M PRN PRN Reason: Pain, severe (8-10) Last Admin: 03/15/18 04:43 Dose: 0.4 mg Pantoprazole Sodium (Protonix Inj) 40 mg IVP BID AMY Last Admin: 03/15/18 13:20 Dose: 40 mg Physical Exam - Constitutional Appears: No Acute Distress - Head Exam Head Exam: ATRAUMATIC, NORMAL INSPECTION, NORMOCEPHALIC - Eye Exam Eye Exam: EOMI, Normal appearance, PERRL Pupil Exam: NORMAL ACCOMODATION, PERRL - ENT Exam ENT Exam: Mucous Membranes Moist, Normal Exam - Neck Exam Neck exam: Positive for: Normal Inspection - Respiratory Exam Respiratory Exam: NORMAL BREATHING PATTERN - Cardiovascular Exam Cardiovascular Exam: Tachycardia - GI/Abdominal Exam GI & Abdominal Exam: Distended, Soft, Tenderness. absent: Firm, Guarding, Hernia, Mass, Pulsatile Mass, Rebound, Rigid Additional comments: RLQ TTP - Exam Exam: NORMAL INSPECTION - Extremities Exam Extremities exam: Positive for: full ROM, normal inspection - Back Exam Back exam: NORMAL INSPECTION - Neurological Exam Neurological exam: Alert, CN II-XII Intact, Normal Gait, Oriented x3 - Psychiatric Exam Psychiatric exam: Normal Affect, Normal Mood - Skin Skin Exam: Dry, Intact, Normal Color, Warm Results - Vital Signs Recent Vital Signs: Last Vital Signs Temp 98.8 F 03/15/18 05:46 Pulse 96 H 03/15/18 12:39 Resp 24 03/15/18 12:39 BP 141/62 03/15/18 12:39 Pulse Ox 94 L 03/15/18 12:39 - Labs Result Diagrams: 03/15/18 04:48 03/15/18 04:48 Labs: Laboratory Results - last 24 hr 03/15/18 03/15/18 03/15/18 04:48 04:48 05:27 WBC 9.4 D RBC 5.50 Hgb 15.4 D Hct 47.1 MCV 85.5 MCH 27.9 MCHC 32.7 L RDW 15.1 H Plt Count 138 MPV 11.0 Neut % (Auto) 87.7 H Lymph % (Auto) 7.6 L [place] % (Auto) 2.4 Eos % (Auto) 1.3 Baso % (Auto) 1.0 Neut # (Auto) 8.2 H Lymph # (Auto) 0.7 L [place] # (Auto) 0.2 Eos # (Auto) 0.1 Baso # (Auto) 0.1 Neutrophils % (Manual) 88 H Lymphocytes % (Manual) 7 L Monocytes % (Manual) 4 Basophils % (Manual) 1 Platelet Estimate Normal Sodium 139 Potassium 4.5 Chloride 101 Carbon Dioxide 26 Anion Gap 17 BUN 21 H Creatinine 1.2 Est GFR ( Amer) > 60 Est GFR (Non-Af Amer) 60 Random Glucose 180 H Lactic Acid Calcium 10.5 H Magnesium 1.3 L Total Bilirubin 1.7 H AST 89 H D ALT 71 Alkaline Phosphatase 143 H D Troponin I < 0.0120 NT-Pro-B Natriuret Pep 115 Total Protein 9.1 H Albumin 4.6 Globulin 4.5 H Albumin/Globulin Ratio 1.0 Lipase 423 H Urine Opiates Screen Urine Methadone Screen Ur Barbiturates Screen Ur Phencyclidine Scrn Ur Amphetamines Screen U Benzodiazepines Scrn U Oth Cocaine Metabols U Cannabinoids Screen 03/15/18 03/15/18 03/15/18 13:10 13:10 13:15 WBC RBC Hgb Hct MCV MCH MCHC RDW Plt Count MPV Neut % (Auto) Lymph % (Auto) [place] % (Auto) Eos % (Auto) Baso % (Auto) Neut # (Auto) Lymph # (Auto) [place] # (Auto) Eos # (Auto) Baso # (Auto) Neutrophils % (Manual) Lymphocytes % (Manual) Monocytes % (Manual) Basophils % (Manual) Platelet Estimate Sodium Potassium Chloride Carbon Dioxide Anion Gap BUN Creatinine Est GFR ( Amer) Est GFR (Non-Af Amer) Random Glucose Lactic Acid 5.3 H* Calcium Magnesium Total Bilirubin AST ALT Alkaline Phosphatase Troponin I 0.0140 NT-Pro-B Natriuret Pep 761 Total Protein Albumin Globulin Albumin/Globulin Ratio Lipase Urine Opiates Screen Positive H Urine Methadone Screen Negative Ur Barbiturates Screen Negative Ur Phencyclidine Scrn Negative Ur Amphetamines Screen Negative U Benzodiazepines Scrn Negative U Oth Cocaine Metabols Negative U Cannabinoids Screen Negative Assessment & Plan - Assessment and Plan (Free Text) Assessment: Abd pain 2/[address] shows no aortic dissection. CT shows dilated fluid filled appendix 1.1cm with surrounding inflammation. R kidney stones were seen. WBC 9 with 88% neutrophill. Lactate was 5.3. -OR for Laparoscopic appendectomy -NPO -IVF -ABX DW Dr. Fu
--- NOTE | 2018-03-15 16:44 | CP.PCM.HP ---
History of Present Illness - History of Present Illness History of Present Illness: CC: Abdominal pain. 72 y/o M, with PMHx of HTN, DM, Asthma, was brought via EMS to ER [facility] today 02/12/18, for evaluation of Abdominal pain that began day [employer], gradually increased on DOA. Pt states, abdominal pain on eawjlnlomh-Iykg-irceulpee area radiated to RLQ, describe as constant, aching, severe intensity 8-10:10, ass ociated to vomiting x2 (while at home), unable to urinated or move bowels, radiating to upper chest. Worsening symptoms: Mild SOB, Subclinical appendicitis not excluded on CT. Aggravated factor: Exercise/walking. Pt denied: Fever, chills, nausea, diarrhea, dysuria, hematuria, hematochezia, hematemesis, SOB, cough, sick contact. CXR: Noactive disease. EKG: Normal sinus rhythm. Possible LAE. Present on Admission - Present on Admission Any Indicators Present on Admission: No Review of Systems - Constitutional Constitutional: Other (negative) - EENT Eyes: Requires Corrective Lenses Ears: Other (negative) Nose/Mouth/Throat: Other (negative) - Cardiovascular Cardiovascular: Other (negative) - Respiratory Respiratory: Dyspnea (mild) - Gastrointestinal Gastrointestinal: Vomiting (x2) - Genitourinary Genitourinary: Other (unable to urine) - Musculoskeletal Musculoskeletal: Other (negative) - Integumentary Integumentary: Other (negative) - Neurological Neurological: Other (negative) - Psychiatric Psychiatric: Other (negative) - Endocrine Endocrine: Other (negative) - Hematologic/Lymphatic Hematologic: Other (negative) Past Patient History - Past Medical History & Family History Past Medical History?: Yes Pertinent Family History: Unknown - Past Social History Smoking Status: Former Smoker Cigar Use: Yes Alcohol: < 2 Drinks/Day ([employer]) Drugs: Cannabis, Opiates Home Situation {Lives}: Alone - CARDIAC Hx Cardiac Disorders: Yes Hx Hypertension: Yes - PULMONARY Hx Respiratory Disorders: Yes Hx Asthma: Yes - NEUROLOGICAL Hx Neurological Disorder: No - HEENT Hx HEENT Problems: Yes (wear eyeglasses) - RENAL Hx Chronic Kidney Disease: No - ENDOCRINE/METABOLIC Hx Endocrine Disorders: Yes Hx Diabetes Mellitus Type 1: Yes - HEMATOLOGICAL/ONCOLOGICAL Hx Blood Disorders: No - INTEGUMENTARY Hx Dermatological Problems: No - MUSCULOSKELETAL/RHEUMATOLOGICAL Hx Musculoskeletal Disorders: No Hx Falls: No - GASTROINTESTINAL Hx Gastrointestinal Disorders: No - GENITOURINARY/GYNECOLOGICAL Hx Genitourinary Disorders: No - PSYCHIATRIC Hx Psychophysiologic Disorder: No Hx Substance Use: No - SURGICAL HISTORY Hx Surgeries: Yes Hx Herniorrhaphy: Yes - ANESTHESIA Hx Anesthesia: Yes Hx Anesthesia Reactions: No Hx Malignant Hyperthermia: Yes Meds Allergies/Adverse Reactions: Allergies Allergy/AdvReac Type Severity Reaction Status Date / Time No Known Allergies Allergy Verified 03/15/18 04:11 Physical Exam - Constitutional Appears: No Acute Distress - Head Exam Head Exam: NORMAL INSPECTION - Eye Exam Eye Exam: PERRL - ENT Exam ENT Exam: Normal Exam - Neck Exam Neck exam: Positive for: Normal Inspection - Respiratory Exam Respiratory Exam: Decreased Breath Sounds (at bases) - Cardiovascular Exam Cardiovascular Exam: REGULAR RHYTHM - GI/Abdominal Exam GI & Abdominal Exam: Normal Bowel Sounds, Tenderness (epigastric/periumbilical/RLQ). absent: Guarding, Rebound - Extremities Exam Extremities exam: Positive for: normal inspection - Back Exam Back exam: NORMAL INSPECTION - Neurological Exam Neurological exam: Alert, Oriented x3 Additional comments: No motor/sensory deficit. - Psychiatric Exam Psychiatric exam: Normal Mood - Skin Skin Exam: Warm Results - Vital Signs Recent Vital Signs: Last Vital Signs Temp 98.2 F 03/15/18 12:39 Pulse 96 H 03/15/18 16:06 Resp 16 03/15/18 16:06 BP 131/71 03/15/18 16:06 Pulse Ox 97 03/15/18 16:06 reviewed J.PJuan - Labs Result Diagrams: 03/15/18 04:48 03/15/18 04:48 Labs: Laboratory Results - last 24 hr 03/15/18 03/15/18 03/15/18 04:48 04:48 05:27 WBC 9.4 D RBC 5.50 Hgb 15.4 D Hct 47.1 MCV 85.5 MCH 27.9 MCHC 32.7 L RDW 15.1 H Plt Count 138 MPV 11.0 Neut % (Auto) 87.7 H Lymph % (Auto) 7.6 L Clinch % (Auto) 2.4 Eos % (Auto) 1.3 Baso % (Auto) 1.0 Neut # (Auto) 8.2 H Lymph # (Auto) 0.7 L Clinch # (Auto) 0.2 Eos # (Auto) 0.1 Baso # (Auto) 0.1 Neutrophils % (Manual) 88 H Lymphocytes % (Manual) 7 L Monocytes % (Manual) 4 Basophils % (Manual) 1 Platelet Estimate Normal Sodium 139 Potassium 4.5 Chloride 101 Carbon Dioxide 26 Anion Gap 17 BUN 21 H Creatinine 1.2 Est GFR ( Amer) > 60 Est GFR (Non-Af Amer) 60 Random Glucose 180 H Lactic Acid Calcium 10.5 H Magnesium 1.3 L Total Bilirubin 1.7 H AST 89 H D ALT 71 Alkaline Phosphatase 143 H D Troponin I < 0.0120 NT-Pro-B Natriuret Pep 115 Total Protein 9.1 H Albumin 4.6 Globulin 4.5 H Albumin/Globulin Ratio 1.0 Lipase 423 H Urine Opiates Screen Urine Methadone Screen Ur Barbiturates Screen Ur Phencyclidine Scrn Ur Amphetamines Screen U Benzodiazepines Scrn U Oth Cocaine Metabols U Cannabinoids Screen 03/15/18 03/15/18 03/15/18 13:10 13:10 13:15 WBC RBC Hgb Hct MCV MCH MCHC RDW Plt Count MPV Neut % (Auto) Lymph % (Auto) Clinch % (Auto) Eos % (Auto) Baso % (Auto) Neut # (Auto) Lymph # (Auto) Clinch # (Auto) Eos # (Auto) Baso # (Auto) Neutrophils % (Manual) Lymphocytes % (Manual) Monocytes % (Manual) Basophils % (Manual) Platelet Estimate Sodium Potassium Chloride Carbon Dioxide Anion Gap BUN Creatinine Est GFR ( Amer) Est GFR (Non-Af Amer) Random Glucose Lactic Acid 5.3 H* Calcium Magnesium Total Bilirubin AST ALT Alkaline Phosphatase Troponin I 0.0140 NT-Pro-B Natriuret Pep 761 Total Protein Albumin Globulin Albumin/Globulin Ratio Lipase Urine Opiates Screen Positive H Urine Methadone Screen Negative Ur Barbiturates Screen Negative Ur Phencyclidine Scrn Negative Ur Amphetamines Screen Negative U Benzodiazepines Scrn Negative U Oth Cocaine Metabols Negative U Cannabinoids Screen Negative reviewed J.P. - EKG Data EKG comments: reviewed J.P. - Imaging and Cardiology CT scan - abdomen Status: Report reviewed by me (J.P.) CT scan - pelvis Status: Report reviewed by me (J.P.) CT scan - chest Status: Report reviewed by me (J.P.) Chest x-ray Status: Report reviewed by (Jairo) Assessment & Plan (1) Abdominal pain Status: Acute Priority: High (2) Appendicitis Status: Acute Priority: High (3) Diabetes mellitus Status: Chronic Priority: Medium (4) HTN (hypertension) Status: Chronic - Assessment and Plan (Free Text) Plan: Continue Zosyn, Vanco, Morphine, Protonix, and rest of Tx. Surgical consult, GI and ID consult, Pt is medically clear for surgery. - Date & Time Date: 03/15/18 Time: 14:30
[2018-03-15] MEDS: Piperacillin/Tazobact 3.375 GM in Sodium Chloride 0.9% 100 ML IVPB SCH (17:26)
[2018-03-15] MEDS ORDERED: Sodium Chloride 0.9% 1,000 ML IV ONE ×2 (18:00→19:15)
[2018-03-15] MEDS ORDERED: Piperacillin/Tazobact 3.375 gm Inj IVPB ONE (18:00)
[2018-03-15] MEDS ORDERED: Lactated Ringer's 1,000 ML IV ONE (18:00)
[2018-03-15] MEDS ORDERED: Succinylcholine 200 mg/10 ml Inj IV ONE (18:24)
[2018-03-15] MEDS ORDERED: Propofol 10 mg/ml Inj (20 ML) ONE (18:24)
[2018-03-15] MEDS ORDERED: Lidocaine 1% 5ml Abboject ONE (18:32)
[2018-03-15] MEDS ORDERED: Rocuronium 10 mg/ml (5 ml) ONE (18:39)
[2018-03-15] MEDS ORDERED: Neostigmine 1:1000 (1 mg/ml) Inj ONE (19:20)
[2018-03-15] MEDS ORDERED: Oxycodone/Acetaminophen 5/325 mg Tab PO PRN (19:41)
[2018-03-15] MEDS ORDERED: DiphenhydrAMINE 50 mg/ml Inj IVP PRN (19:42)
[2018-03-15] MEDS ORDERED: HYDROmorphone 0.5 mg/0.5 ml ISec ONE (19:43)
--- NOTE | 2018-03-15 19:43 | PCM.SURG1 ---
Surgeon's Initial Post Op Note - Surgeon's Notes Surgeon: Dr. Fu Corporate Services Manager: Jayro Moreland PGY3 Type of Anesthesia: General Endo Anesthesia Administered By: Dr. Uriarte Pre-Operative Diagnosis: appendicitis Operative Findings: appendicitis, adhesions to the mesh near the umbilicus Post-Operative Diagnosis: Same Operation Performed: laparoscopic appendectomy Specimen/Specimens Removed: appendix Estimated Blood Loss: EBL {In ML}: 50 Blood Products Given: N/A Drains Used: No Drains Post-Op Condition: Good Date of Surgery/Procedure: 03/15/18 Time of Surgery/Procedure: 19:43
--- NOTE | 2018-03-15 19:52 | PCM.OP ---
Operative Report - Operative Report Date of Surgery/Procedure: 03/15/18 Time of Surgery/Procedure: 19:50 Surgeon: Dr. Fu Product Management Analyst: Jayro Moreland Anesthesia/Sedation: General Endotrachial : Dr. Uriarte Pre-Operative Diagnosis: Acute appendicitis Post-Operative Diagnosis: Acute appendicitis Indication for Surgery: The patient is a 72 Male who presented with signs and symptoms consistent with acute appendicitis. She was seen on preoperative CT imaging to have an inflamed appendix, with dilated thicken fluids filled appendix. The risks and benefits of the procedure including the possibility of bleeding, infection, intra-abdominal abscess and the need for open operation were reviewed in detail with the patient and the patient agreed to proceed with the operation. Operative Findings: Inflammed appendix, omental adhesions to the umbilical hernia mesh Procedure/Operation Description: After informed consent was obtained, the patient was then brought to the operating room and placed on the operating table in the supine position. After induction of the general anesthetic, the abdomen was prepped and draped in the usual sterile fashion. A small stab incision was made through Left upper quadrant with 11 blade. 5mm trocar was inserted without difficulty with the visiport. After establish the pneumoperitoneum, abdomen was inspected. There were marked omental adhesions to the mesh near the umbilicus. Adhesion was bluntly dissected with the camera to better visualize the abdomen. After locating area without adhesions on Right upper quadrant. stab skin incision was made with 11 blade and 5mm trocar was inserted under direct visualization. Lysis of adhesion was performed with endoshear device. patient was placed in Trendelenburg position. An obviously inflamed, edematous and borderline gangrenous appendix was seen. The terminal ileum was also draped over in a rather adherent fashion. 12mm incision was made to midpoint of umbilicus and subxyphoid area for 12mm trocar. 12 mm trocar was intersered under direct vision. Blunt dissection was done with [place] forcept to gently remove inflamed appendix from terminal ileum and cecum. The mesoappendix was then divided with 45mm white load andostaple. The base of the appendix was clearly identified in relationship to the cecum and terminal ileum. The appendiceal base was then ligated with 45mm white load endo linear stapler. The appendix was then placed in an EndoCatch bag. Abdomen was irrigated and suctioned. Hemostasis was achieved with energy device. Appendix was removed from superior midline port site with no contact made between the contents of the bag and the skin incision. All needle and sponge counts were correct at the conclusion of the procedure. The midline fascial defect was closed with 2-0 Vicryl suture and the skin incisions were closed with 4-0 monocryl. Estimated Blood Loss: 50 Complications: None Specimen: Appendix Discharge & Condition: The patient tolerated the procedure well, awoke from anesthetic in stable condition and was brought back to recovery without complication .
[2018-03-15] MEDS: HYDROmorphone 0.5 mg/0.5 ml ISec IVP PRN ×3 (19:55→22:15)
[2018-03-15] MEDS ORDERED: Piperacillin/Tazobact 3.375 GM in Sodium Chloride 0.9% 100 ML IVPB SCH (21:00)
--- NOTE | 2018-03-16 04:52 | OP ---
PROCEDURE DATE: 03/15/2018 TIME OF THE PROCEDURE: 7:30 SURGEON: Lesly Fu MD GENERAL II FARMWORKER: Jayro Moreland DO ANESTHESIA GIVEN BY: Delmer Uriarte MD ANESTHESIA: General anesthesia. PREOPERATIVE DIAGNOSIS: Acute appendicitis. POSTOPERATIVE DIAGNOSIS: Acute appendicitis. INDICATION FOR SURGERY: The patient is a 72-year-old male who presented with the signs and symptoms of acute appendicitis. The patient was seen on preoperative suite. The CT imaging showed inflamed appendix with dilated thickened fluid filled appendix. The risks and benefits of the procedure including the possibility of bleeding, infection, intra-abdominal abscess and the need for open operation was reviewed in detail with the patient, and the patient agreed to proceed with the operation. OPERATIVE FINDINGS: Inflamed appendix, omental adhesions with umbilical hernia mesh. DESCRIPTION OF THE PROCEDURE: After informed consent was obtained, the patient was brought to the operating room and placed on the operating table in the supine position. After induction of general anesthesia, the abdomen was prepped and draped in the usual sterile fashion. A small stab incision was made in the left upper quadrant with an 11-blade. A 5-mm trocar was inserted without difficulty with Visiport. After establishing pneumoperitoneum, abdomen was inspected. They were marked omental adhesions to the mesh near the umbilicus. Adhesions were bluntly dissected with a camera to better visualize the abdomen. After identifying an area without adhesions on the right upper quadrant, stab skin incision was made with 11-blade, and a 5-mm trocar was inserted on the position visualization. Lysis of adhesions was performed with EndoSure device. The patient was placed on the Trendelenburg position. An obvious inflamed, edematous, and borderline gangrenous appendix was seen. The terminal ileum was also draped over in a wrapped adherent fashion. A 12-mm incision was made to the midline of the upper abdomen for a 12-mm trochar. A 12-mm trochar was inserted under direct vision. Blunt dissection was done with [place] forceps to gently remove inflamed appendix from the terminal ileum and cecum. The mesoappendix was then divided with 45-mm white load Endo stapler. The base of the appendix was clearly identified in relationship to the cecum and terminal ileum. The appendix was then ligated with 45-mm white load Endo linear stapler. The appendix was then placed on the EndoCatch bag. The abdomen was irrigating and suctioned. Hemostasis was achieved with energy device. Appendix was removed from superior midline port site with no contact made between the contents of the bag and skin incision. All needle and sponge counts were correct at the conclusion of the procedure. The midline fascial defect was closed with a 2-0 Vicryl suture, and the skin incisions were closed with a 4-0 Monocryl. ESTIMATED BLOOD LOSS: 50 mL. COMPLICATIONS: None. SPECIMEN: Appendix. The patient tolerated the procedure well and awoke from the anesthetic in stable condition and was brought back to the Recovery without complication. Jayro Moreland DO Lesly Fu MD ANABELLA
[2018-03-16 06:12] LABS: BASO # 0.1 K/uL (0.0-0.2); BASO % 0.5 % (0.0-2.0); EOS % 0.3 % (0.0-4.0); LYMPH # 1.3 K/uL (1.0-4.3); LYMPH % 9.8 % (20.0-40.0); MEAN CELL VOLUME 86.6 fl (80.0-94.0); MEAN CORPUSCULAR HEMOGLOBIN 27.5 pg (27.0-31.0); MEAN CORPUSCULAR HGB CONC 31.8 g/dL (33.0-37.0); MEAN PLATELET VOLUME 11.8 fl (7.2-11.7); MONO % 7.3 % (0.0-10.0); NEUT # 10.7 K/uL (1.8-7.0); NEUT % 82.1 % (50.0-75.0); NRBC % 0.1 % (0.0-0.0); RBC 3.99 Mil/uL (4.40-5.90); RED CELL DISTRIBUTION WIDTH 15.3 % (11.5-14.5); WHITE BLOOD COUNT 13.1 K/uL (4.8-10.8)
[2018-03-16 06:32] LABS: ALBUMIN 3.3 g/dL (3.5-5.0); CALCIUM 8.3 mg/dL (8.4-10.2)
--- NOTE | 2018-03-16 07:00 | CP.PCM.PN ---
Subjective - Date & Time of Evaluation Date of Evaluation: 03/16/18 Time of Evaluation: 06:40 - Subjective Subjective: Surgery: Fu Patient seen and examined this am at bedside. No acut events overnight per nursing. Patient states his pain is well controlled and is tolerating his diet well. He denies f/c, n/v, flatus and BM. He endorses mild incisional pain. Objective - Vital Signs/Intake and Output Vital Signs (last 24 hours): Temp Pulse Resp BP Pulse Ox 97.4 F L 67 18 92/55 L 97 03/16/18 05:00 03/16/18 05:43 03/16/18 05:43 03/16/18 05:43 03/16/18 05:43 Intake and Output: 03/15/18 03/16/18 18:59 06:59 Intake Total 600 Balance 600 - Medications Medications: Current Medications Hydromorphone HCl (Dilaudid) 0.5 mg IVP Q6H PRN PRN Reason: Pain, severe (8-10) Sodium Chloride (Sodium Chloride 0.9%) 1,000 mls @ 100 mls/hr IV .Q10H AMY Stop: 03/16/18 10:42 Last Admin: 03/15/18 11:40 Dose: 100 mls/hr Piperacillin Sod/Tazobactam (Sod 3.375 gm/ Sodium Chloride) 100 mls @ 100 mls/hr IVPB Q12 AMY; Protocol Last Admin: 03/15/18 17:26 Dose: 100 mls/hr Nitroglycerin (Nitrostat Sl Tab) 0.4 mg SL Q5M PRN PRN Reason: Pain, severe (8-10) Last Admin: 03/15/18 04:43 Dose: 0.4 mg Oxycodone/Acetaminophen (Percocet 5/325 Mg Tab) 2 tab PO Q4 PRN PRN Reason: Pain, moderate (4-7) Stop: 03/18/18 19:42 Pantoprazole Sodium (Protonix Inj) 40 mg IVP BID AMY Last Admin: 03/15/18 17:19 Dose: 40 mg - Labs Labs: 03/16/18 04:20 03/16/18 04:20 - Constitutional Appears: Well, Non-toxic, No Acute Distress - Head Exam Head Exam: ATRAUMATIC, NORMOCEPHALIC - Eye Exam Eye Exam: EOMI - Respiratory Exam Respiratory Exam: NORMAL BREATHING PATTERN - Cardiovascular Exam Cardiovascular Exam: REGULAR RHYTHM - GI/Abdominal Exam GI & Abdominal Exam: Soft, Tenderness (mild appropriate incisional tenderness). absent: Guarding - Extremities Exam Extremities Exam: absent: Calf Tenderness, Pedal Edema - Neurological Exam Neurological Exam: Alert, Awake, Oriented x3 - Psychiatric Exam Psychiatric exam: Normal Affect, Normal Mood - Skin Skin Exam: Dry, Intact, Warm Additional comments: incisions cdi with dermabond in place, small incisional hematoma present over two medial incisions Assessment and Plan - Assessment and Plan (Free Text) Assessment: 72 yr old male s/p laparoscopic appendectomy, POD 1 Plan: c/w diabetic diet c/w zosyn c/w IVF, 1L Bolus d/t hypotension, Cr increase and Hgb decrease Repeat cbc and coags in pm monitor for Bowel function will d/w Dr. Tank Mccauley, PGY 1
[2018-03-16] MEDS: Piperacillin/Tazobact 3.375 GM in Sodium Chloride 0.9% 100 ML IVPB SCH ×3 (09:30→22:18)
--- NOTE | 2018-03-16 12:24 | CP.PCM.CON ---
History of Present Illness - History of Present Illness History of Present Illness: Infectious Disease Consultation Note- ASked to see this patient at the request of for help with antibiotics for post appendectomy patient with leukocytosis. HPI- Patient is a 72 year old male with PMH of HTN, DM II, who was brought to ED for c/o abdominal pian that had started 1 day prior to admission along with nausea and vomiting. Patient explains the pain started suddently and was initially in mid-epigastric region but it progressed and radiated to lower abdomen and his nausea got worse as well. In Ed he had CT and appendicitis could not be ruled out and he is POD s/p appendectomy. he is afebrile but has mild leukocytosis and in addition he complains of alot of gas and abdominal distention . he states his nausea and vomiting has resolved. of note his creatinine has increased since admission. pt. also has h/o prostate CA treated with radiation. Review of Systems - Review of Systems Review of Systems: ROS- denies any fever or chills , denies any RIVERA, denies any cough, denies any sob, denies any chest pain, + abdominal pian and distention and + gas, denies any dysurea, denies any diarrhea denies any nausea or vomiting now Past Patient History - Past Medical History & Family History Past Medical History?: Yes - Past Social History Smoking Status: Current Some Days Smoker Home Situation {Lives}: Alone - CARDIAC Hx Hypertension: Yes - PULMONARY Hx Respiratory Disorders: Yes Hx Asthma: Yes - NEUROLOGICAL Hx Neurological Disorder: No - HEENT Hx HEENT Problems: Yes (wear eyeglasses) - RENAL Hx Chronic Kidney Disease: No - ENDOCRINE/METABOLIC Hx Endocrine Disorders: Yes Hx Diabetes Mellitus Type 2: Yes - HEMATOLOGICAL/ONCOLOGICAL Hx Blood Disorders: No - INTEGUMENTARY Hx Dermatological Problems: No - MUSCULOSKELETAL/RHEUMATOLOGICAL Hx Musculoskeletal Disorders: No Hx Falls: No - GASTROINTESTINAL Hx Gastrointestinal Disorders: No - GENITOURINARY/GYNECOLOGICAL Hx Genitourinary Disorders: No - PSYCHIATRIC Hx Psychophysiologic Disorder: No Hx Substance Use: No - SURGICAL HISTORY Hx Surgeries: Yes Hx Herniorrhaphy: Yes - ANESTHESIA Hx Anesthesia: Yes Hx Anesthesia Reactions: No Hx Malignant Hyperthermia: Yes Meds Allergies/Adverse Reactions: Allergies Allergy/AdvReac Type Severity Reaction Status Date / Time No Known Allergies Allergy Verified 03/15/18 04:11 - Medications Medications: Current Medications Hydromorphone HCl (Dilaudid) 0.5 mg IVP Q6H PRN PRN Reason: Pain, severe (8-10) Piperacillin Sod/Tazobactam (Sod 3.375 gm/ Sodium Chloride) 100 mls @ 100 mls/hr IVPB Q12 AMY; Protocol Last Admin: 03/16/18 09:53 Dose: 100 mls/hr Lactated Ringer's (Lactated Ringer's) 1,000 mls @ 999 mls/hr IV .Q1H1M AMY Nitroglycerin (Nitrostat Sl Tab) 0.4 mg SL Q5M PRN PRN Reason: Pain, severe (8-10) Last Admin: 03/15/18 04:43 Dose: 0.4 mg Oxycodone/Acetaminophen (Percocet 5/325 Mg Tab) 2 tab PO Q4 PRN PRN Reason: Pain, moderate (4-7) Stop: 03/18/18 19:42 Pantoprazole Sodium (Protonix Inj) 40 mg IVP BID [facility] Last Admin: 03/16/18 10:14 Dose: 40 mg Physical Exam - Constitutional Appears: No Acute Distress - Head Exam Head Exam: ATRAUMATIC - Eye Exam Eye Exam: EOMI, PERRL - ENT Exam ENT Exam: Normal Oropharynx - Neck Exam Neck exam: Positive for: Full Rom - Respiratory Exam Respiratory Exam: Clear to Auscultation Bilateral, NORMAL BREATHING PATTERN - Cardiovascular Exam Cardiovascular Exam: RRR, +S1, +S2 - GI/Abdominal Exam GI & Abdominal Exam: Distended Additional comments: somewhat firm hypoactive BS + tenderness midepigastric region No guarding, no rebound small bandaid at lapporoscopy sight, no erythema, no discharge - Extremities Exam Extremities exam: Positive for: normal inspection - Neurological Exam Neurological exam: Alert, Oriented x3 Results - Vital Signs Recent Vital Signs: Last Vital Signs Temp 97.9 F 03/16/18 08:24 Pulse 65 03/16/18 08:24 Resp 20 03/16/18 08:24 BP 97/61 L 03/16/18 08:24 Pulse Ox 98 03/16/18 08:24 - Labs Result Diagrams: 03/16/18 04:20 03/16/18 04:20 Labs: Laboratory Results - last 24 hr 11/03/2203/15/18 03/15/18 04:19 13:10 13:10 WBC RBC Hgb Hct MCV MCH MCHC RDW Plt Count MPV Neut % (Auto) Lymph % (Auto) Andrews % (Auto) Eos % (Auto) Baso % (Auto) Neut # (Auto) Lymph # (Auto) Andrews # (Auto) Eos # (Auto) Baso # (Auto) Sodium Potassium Chloride Carbon Dioxide Anion Gap BUN Creatinine Est GFR ( Amer) Est GFR (Non-Af Amer) POC Glucose (mg/dL) 171 H Random Glucose Lactic Acid 5.3 H* Calcium Magnesium Total Bilirubin AST ALT Alkaline Phosphatase Troponin I 0.0140 NT-Pro-B Natriuret Pep 761 Total Protein Total Protein (PEP) Albumin Globulin Albumin/Globulin Ratio Urine Opiates Screen Ur Opiates (GC/MS) Urine Methadone Screen Ur Methadone, Qual Urine Propoxyphene Methaqualone Ur Barbiturates Screen Ur Barbiturates, Qual Ur Phencyclidine Scrn Ur Phencyclidine (PCP) Ur Amphetamines Screen U Benzodiazepines Scrn U Benzodiazepines Qual Urine Cocaine U Oth Cocaine Metabols U Cannabinoids Screen U Marijuana (THC) Screen Drugs of Abuse Note 03/15/18 03/15/18 03/15/18 13:10 13:15 16:00 WBC RBC Hgb Hct MCV MCH MCHC RDW Plt Count MPV Neut % (Auto) Lymph % (Auto) Andrews % (Auto) Eos % (Auto) Baso % (Auto) Neut # (Auto) Lymph # (Auto) Andrews # (Auto) Eos # (Auto) Baso # (Auto) Sodium Potassium Chloride Carbon Dioxide Anion Gap BUN Creatinine Est GFR ( Amer) Est GFR (Non-Af Amer) POC Glucose (mg/dL) Random Glucose Lactic Acid Calcium Magnesium Total Bilirubin AST ALT Alkaline Phosphatase Troponin I NT-Pro-B Natriuret Pep Total Protein Total Protein (PEP) 7.2 Albumin Globulin Albumin/Globulin Ratio Urine Opiates Screen Positive H Ur Opiates (GC/MS) Positive H Urine Methadone Screen Negative Ur Methadone, Qual Negative Urine Propoxyphene Negative Methaqualone Negative Ur Barbiturates Screen Negative Ur Barbiturates, Qual Negative Ur Phencyclidine Scrn Negative Ur Phencyclidine (PCP) Negative Ur Amphetamines Screen Negative Negative U Benzodiazepines Scrn Negative U Benzodiazepines Qual Negative Urine Cocaine Negative U Oth Cocaine Metabols Negative U Cannabinoids Screen Negative U Marijuana (THC) Screen Negative Drugs of Abuse Note See note 03/16/18 03/16/18 03/16/18 00:12 04:20 04:20 WBC 13.1 H RBC 3.99 L Hgb 11.0 L D Hct 34.6 L MCV 86.6 MCH 27.5 MCHC 31.8 L RDW 15.3 H Plt Count 106 L D MPV 11.8 H Neut % (Auto) 82.1 H Lymph % (Auto) 9.8 L Andrews % (Auto) 7.3 Eos % (Auto) 0.3 Baso % (Auto) 0.5 Neut # (Auto) 10.7 H Lymph # (Auto) 1.3 Andrews # (Auto) 1.0 H Eos # (Auto) 0.0 Baso # (Auto) 0.1 Sodium 139 Potassium 4.2 Chloride 107 Carbon Dioxide 22 Anion Gap 14 BUN 32 H Creatinine 2.6 H Est GFR ( Amer) 30 Est GFR (Non-Af Amer) 24 POC Glucose (mg/dL) 195 H Random Glucose 174 H Lactic Acid Calcium 8.3 L Magnesium Total Bilirubin 2.0 H AST 55 ALT 47 Alkaline Phosphatase 50 Troponin I NT-Pro-B Natriuret Pep Total Protein 6.8 Total Protein (PEP) Albumin 3.3 L D Globulin 3.5 Albumin/Globulin Ratio 1.0 Urine Opiates Screen Ur Opiates (GC/MS) Urine Methadone Screen Ur Methadone, Qual Urine Propoxyphene Methaqualone Ur Barbiturates Screen Ur Barbiturates, Qual Ur Phencyclidine Scrn Ur Phencyclidine (PCP) Ur Amphetamines Screen U Benzodiazepines Scrn U Benzodiazepines Qual Urine Cocaine U Oth Cocaine Metabols U Cannabinoids Screen U Marijuana (THC) Screen Drugs of Abuse Note 03/16/18 03/16/18 03/16/18 05:27 10:24 10:24 WBC RBC Hgb Hct MCV MCH MCHC RDW Plt Count MPV Neut % (Auto) Lymph % (Auto) Andrews % (Auto) Eos % (Auto) Baso % (Auto) Neut # (Auto) Lymph # (Auto) Andrews # (Auto) Eos # (Auto) Baso # (Auto) Sodium Potassium Chloride Carbon Dioxide Anion Gap BUN Creatinine Est GFR ( Amer) Est GFR (Non-Af Amer) POC Glucose (mg/dL) 163 H Random Glucose Lactic Acid 2.0 Calcium Magnesium 1.7 Total Bilirubin AST ALT Alkaline Phosphatase Troponin I NT-Pro-B Natriuret Pep Total Protein Total Protein (PEP) Albumin Globulin Albumin/Globulin Ratio Urine Opiates Screen Ur Opiates (GC/MS) Urine Methadone Screen Ur Methadone, Qual Urine Propoxyphene Methaqualone Ur Barbiturates Screen Ur Barbiturates, Qual Ur Phencyclidine Scrn Ur Phencyclidine (PCP) Ur Amphetamines Screen U Benzodiazepines Scrn U Benzodiazepines Qual Urine Cocaine U Oth Cocaine Metabols U Cannabinoids Screen U Marijuana (THC) Screen Drugs of Abuse Note 03/16/18 11:51 WBC RBC Hgb Hct MCV MCH MCHC RDW Plt Count MPV Neut % (Auto) Lymph % (Auto) Andrews % (Auto) Eos % (Auto) Baso % (Auto) Neut # (Auto) Lymph # (Auto) Andrews # (Auto) Eos # (Auto) Baso # (Auto) Sodium Potassium Chloride Carbon Dioxide Anion Gap BUN Creatinine Est GFR ( Amer) Est GFR (Non-Af Amer) POC Glucose (mg/dL) 191 H Random Glucose Lactic Acid Calcium Magnesium Total Bilirubin AST ALT Alkaline Phosphatase Troponin I NT-Pro-B Natriuret Pep Total Protein Total Protein (PEP) Albumin Globulin Albumin/Globulin Ratio Urine Opiates Screen Ur Opiates (GC/MS) Urine Methadone Screen Ur Methadone, Qual Urine Propoxyphene Methaqualone Ur Barbiturates Screen Ur Barbiturates, Qual Ur Phencyclidine Scrn Ur Phencyclidine (PCP) Ur Amphetamines Screen U Benzodiazepines Scrn U Benzodiazepines Qual Urine Cocaine U Oth Cocaine Metabols U Cannabinoids Screen U Marijuana (THC) Screen Drugs of Abuse Note Laboratory Results - last 72 hr 03/15/18 03/15/18 03/15/18 04:19 04:48 04:48 WBC 9.4 D RBC 5.50 Hgb 15.4 D Hct 47.1 MCV 85.5 MCH 27.9 MCHC 32.7 L RDW 15.1 H Plt Count 138 MPV 11.0 Neut % (Auto) 87.7 H Lymph % (Auto) 7.6 L Andrews % (Auto) 2.4 Eos % (Auto) 1.3 Baso % (Auto) 1.0 Neut # (Auto) 8.2 H Lymph # (Auto) 0.7 L Andrews # (Auto) 0.2 Eos # (Auto) 0.1 Baso # (Auto) 0.1 Neutrophils % (Manual) 88 H Lymphocytes % (Manual) 7 L Monocytes % (Manual) 4 Basophils % (Manual) 1 Platelet Estimate Normal PT INR APTT Sodium 139 Potassium 4.5 Chloride 101 Carbon Dioxide 26 Anion Gap 17 BUN 21 H Creatinine 1.2 Est GFR ( Amer) > 60 Est GFR (Non-Af Amer) 60 POC Glucose (mg/dL) 171 H Random Glucose 180 H Lactic Acid Calcium 10.5 H Magnesium 1.3 L Total Bilirubin 1.7 H AST 89 H D ALT 71 Alkaline Phosphatase 143 H D Troponin I < 0.0120 NT-Pro-B Natriuret Pep Total Protein 9.1 H Total Protein (PEP) Albumin 4.6 Globulin 4.5 H Albumin/Globulin Ratio 1.0 Amylase Lipase 423 H Urine Opiates Screen Ur Opiates (GC/MS) Urine Methadone Screen Ur Methadone, Qual Urine Propoxyphene Methaqualone Ur Barbiturates Screen Ur Barbiturates, Qual Ur Phencyclidine Scrn Ur Phencyclidine (PCP) Ur Amphetamines Screen U Benzodiazepines Scrn U Benzodiazepines Qual Urine Cocaine U Oth Cocaine Metabols U Cannabinoids Screen U Marijuana (THC) Screen Drugs of Abuse Note 03/15/18 03/15/18 03/15/18 05:27 13:10 13:10 WBC RBC Hgb Hct MCV MCH MCHC RDW Plt Count MPV Neut % (Auto) Lymph % (Auto) Andrews % (Auto) Eos % (Auto) Baso % (Auto) Neut # (Auto) Lymph # (Auto) Andrews # (Auto) Eos # (Auto) Baso # (Auto) Neutrophils % (Manual) Lymphocytes % (Manual) Monocytes % (Manual) Basophils % (Manual) Platelet Estimate PT INR APTT Sodium Potassium Chloride Carbon Dioxide Anion Gap BUN Creatinine Est GFR ( Amer) Est GFR (Non-Af Amer) POC Glucose (mg/dL) Random Glucose Lactic Acid 5.3 H* Calcium Magnesium Total Bilirubin AST ALT Alkaline Phosphatase Troponin I 0.0140 NT-Pro-B Natriuret Pep 115 761 Total Protein Total Protein (PEP) Albumin Globulin Albumin/Globulin Ratio Amylase Lipase Urine Opiates Screen Ur Opiates (GC/MS) Urine Methadone Screen Ur Methadone, Qual Urine Propoxyphene Methaqualone Ur Barbiturates Screen Ur Barbiturates, Qual Ur Phencyclidine Scrn Ur Phencyclidine (PCP) Ur Amphetamines Screen U Benzodiazepines Scrn U Benzodiazepines Qual Urine Cocaine U Oth Cocaine Metabols U Cannabinoids Screen U Marijuana (THC) Screen Drugs of Abuse Note 03/15/18 03/15/18 03/15/18 13:10 13:15 16:00 WBC RBC Hgb Hct MCV MCH MCHC RDW Plt Count MPV Neut % (Auto) Lymph % (Auto) Andrews % (Auto) Eos % (Auto) Baso % (Auto) Neut # (Auto) Lymph # (Auto) Andrews # (Auto) Eos # (Auto) Baso # (Auto) Neutrophils % (Manual) Lymphocytes % (Manual) Monocytes % (Manual) Basophils % (Manual) Platelet Estimate PT INR APTT Sodium Potassium Chloride Carbon Dioxide Anion Gap BUN Creatinine Est GFR ( Amer) Est GFR (Non-Af Amer) POC Glucose (mg/dL) Random Glucose Lactic Acid Calcium Magnesium Total Bilirubin AST ALT Alkaline Phosphatase Troponin I NT-Pro-B Natriuret Pep Total Protein Total Protein (PEP) 7.2 Albumin Globulin Albumin/Globulin Ratio Amylase Lipase Urine Opiates Screen Positive H Ur Opiates (GC/MS) Positive H Urine Methadone Screen Negative Ur Methadone, Qual Negative Urine Propoxyphene Negative Methaqualone Negative Ur Barbiturates Screen Negative Ur Barbiturates, Qual Negative Ur Phencyclidine Scrn Negative Ur Phencyclidine (PCP) Negative Ur Amphetamines Screen Negative Negative U Benzodiazepines Scrn Negative U Benzodiazepines Qual Negative Urine Cocaine Negative U Oth Cocaine Metabols Negative U Cannabinoids Screen Negative U Marijuana (THC) Screen Negative Drugs of Abuse Note See note 03/16/18 03/16/18 03/16/18 00:12 04:20 04:20 WBC 13.1 H RBC 3.99 L Hgb 11.0 L D Hct 34.6 L MCV 86.6 MCH 27.5 MCHC 31.8 L RDW 15.3 H Plt Count 106 L D MPV 11.8 H Neut % (Auto) 82.1 H Lymph % (Auto) 9.8 L Andrews % (Auto) 7.3 Eos % (Auto) 0.3 Baso % (Auto) 0.5 Neut # (Auto) 10.7 H Lymph # (Auto) 1.3 Andrews # (Auto) 1.0 H Eos # (Auto) 0.0 Baso # (Auto) 0.1 Neutrophils % (Manual) Lymphocytes % (Manual) Monocytes % (Manual) Basophils % (Manual) Platelet Estimate PT INR APTT Sodium 139 Potassium 4.2 Chloride 107 Carbon Dioxide 22 Anion Gap 14 BUN 32 H Creatinine 2.6 H Est GFR ( Amer) 30 Est GFR (Non-Af Amer) 24 POC Glucose (mg/dL) 195 H Random Glucose 174 H Lactic Acid Calcium 8.3 L Magnesium Total Bilirubin 2.0 H AST 55 ALT 47 Alkaline Phosphatase 50 Troponin I NT-Pro-B Natriuret Pep Total Protein 6.8 Total Protein (PEP) Albumin 3.3 L D Globulin 3.5 Albumin/Globulin Ratio 1.0 Amylase Lipase Urine Opiates Screen Ur Opiates (GC/MS) Urine Methadone Screen Ur Methadone, Qual Urine Propoxyphene Methaqualone Ur Barbiturates Screen Ur Barbiturates, Qual Ur Phencyclidine Scrn Ur Phencyclidine (PCP) Ur Amphetamines Screen U Benzodiazepines Scrn U Benzodiazepines Qual Urine Cocaine U Oth Cocaine Metabols U Cannabinoids Screen U Marijuana (THC) Screen Drugs of Abuse Note 03/16/18 03/16/18 03/16/18 05:27 10:24 10:24 WBC RBC Hgb Hct MCV MCH MCHC RDW Plt Count MPV Neut % (Auto) Lymph % (Auto) Andrews % (Auto) Eos % (Auto) Baso % (Auto) Neut # (Auto) Lymph # (Auto) Andrews # (Auto) Eos # (Auto) Baso # (Auto) Neutrophils % (Manual) Lymphocytes % (Manual) Monocytes % (Manual) Basophils % (Manual) Platelet Estimate PT INR APTT Sodium Potassium Chloride Carbon Dioxide Anion Gap BUN Creatinine Est GFR ( Amer) Est GFR (Non-Af Amer) POC Glucose (mg/dL) 163 H Random Glucose Lactic Acid 2.0 Calcium Magnesium 1.7 Total Bilirubin AST ALT Alkaline Phosphatase Troponin I NT-Pro-B Natriuret Pep Total Protein Total Protein (PEP) Albumin Globulin Albumin/Globulin Ratio Amylase Lipase Urine Opiates Screen Ur Opiates (GC/MS) Urine Methadone Screen Ur Methadone, Qual Urine Propoxyphene Methaqualone Ur Barbiturates Screen Ur Barbiturates, Qual Ur Phencyclidine Scrn Ur Phencyclidine (PCP) Ur Amphetamines Screen U Benzodiazepines Scrn U Benzodiazepines Qual Urine Cocaine U Oth Cocaine Metabols U Cannabinoids Screen U Marijuana (THC) Screen Drugs of Abuse Note 03/16/18 03/16/18 03/16/18 11:51 13:05 13:05 WBC RBC Hgb Hct MCV MCH MCHC RDW Plt Count MPV Neut % (Auto) Lymph % (Auto) Andrews % (Auto) Eos % (Auto) Baso % (Auto) Neut # (Auto) Lymph # (Auto) Andrews # (Auto) Eos # (Auto) Baso # (Auto) Neutrophils % (Manual) Lymphocytes % (Manual) Monocytes % (Manual) Basophils % (Manual) Platelet Estimate PT 12.7 INR 1.1 APTT 24.4 L Sodium Potassium Chloride Carbon Dioxide Anion Gap BUN Creatinine Est GFR ( Amer) Est GFR (Non-Af Amer) POC Glucose (mg/dL) 191 H Random Glucose Lactic Acid Calcium Magnesium Total Bilirubin AST ALT Alkaline Phosphatase Troponin I NT-Pro-B Natriuret Pep Total Protein Total Protein (PEP) Albumin Globulin Albumin/Globulin Ratio Amylase 103 Lipase 104 Urine Opiates Screen Ur Opiates (GC/MS) Urine Methadone Screen Ur Methadone, Qual Urine Propoxyphene Methaqualone Ur Barbiturates Screen Ur Barbiturates, Qual Ur Phencyclidine Scrn Ur Phencyclidine (PCP) Ur Amphetamines Screen U Benzodiazepines Scrn U Benzodiazepines Qual Urine Cocaine U Oth Cocaine Metabols U Cannabinoids Screen U Marijuana (THC) Screen Drugs of Abuse Note Microbiology 03/15/18 16:00 Blood-Venous Blood Culture - Preliminary NO GROWTH AFTER 24 HOURS 03/15/18 15:50 Blood-Venous Blood Culture - Preliminary NO GROWTH AFTER 24 HOURS Accession No. : [id number] Patient Name / ID : CONNIE Iglesias / [id number] Exam Date : 03/15/2018 06:33:37 ( Approved ) Study Comment : Sex / Age : M / [id number] Creator : Colette Bradford MD Dictator : Colette Bradford MD Corner Trimmer Operator : [employer] Manager : Colette Bradford MD Approver2 : Report Date : 03/15/2018 14:29:54 My Comment : Date of service: 03/15/2018 PROCEDURE: CT Chest, Abdomen and Pelvis with and without intravenous contrast HISTORY: chest pain radiating to abdomen. COMPARISON: None available. TECHNIQUE: IV dose administered: [address] scan of the chest, abdomen, and pelvis was 1st performed without the use of intravenous contrast. CT scan was then obtained after the administration of intravenous contrast. Multiplanar imaging was reformatted. Radiation dose: Total exam DLP = 725.38 mGy-cm. This CT exam was performed using one or more of the following dose reduction techniques: Automated exposure control, adjustment of the mA and/or kV according to patient size, and/or use of iterative reconstruction technique. FINDINGS: CT CHEST WITH CONTRAST: LUNGS: Mild nonspecific interstitial changes are noted as well as bilateral lower lobe areas of subsegmental atelectasis and/or compressive atelectasis. Mild areas of additional ground-glass are seen in the lower lobe regions which may suggest chronic compression atelectasis and/or mild nonspecific chronic alveolar disease. No definite segmental infiltrate is noted. No pulmonary nodule is clearly seen.. Within the right side of the trachea there is a small amount of subtle nodularity with a mild amount of linear density seen within the trachea. This may reflect adherent mucus products. Small tracheal polyp however is not excluded. No other tracheal abnormality is apparent. MEDIASTINUM: There is evidence of a few small mediastinal lymph nodes in the anterior mediastinum, prevascular region, and right paratracheal region. Additional lymph node is seen in the left lateral carinal region. These may reflect postinflammatory lymph nodes but will require further clinical follow-up. No h ilar adenopathy is seen. Noncontrast images fail to reveal evidence of intramural hematoma. There is however moderate atherosclerotic mural plaque within the aorta with very mild aneurysmal dilatation of the ascending aorta measuring 3.7 centimeters in maximal diameter. No intimal flap to suggest aortic dissection is seen. Additional calcific atherosclerotic changes seen in the descending thoracic aorta without aneurysm. Some mural areas of thrombus are seen within the descending thoracic aorta. LYMPH NODES: See above. PLEURA: No pleural effusion. No pneumothorax. BONES: Degenerative changes are seen in the spine. No fracture is seen. OTHER FINDINGS: None. CT ABDOMEN AND PELVIS: LIVER: Injection timing limits evaluation of the liver. Mild fatty infiltration is not excluded. No focal liver mass or intrahepatic ductal dilatation is seen. GALLBLADDER AND BILE DUCTS: Unremarkable. PANCREAS: Unremarkable. No gross lesion or ductal dilatation. SPLEEN: Unremarkable. ADRENALS: Unremarkable. No mass. KIDNEYS AND URETERS: Left kidney on the noncontrast images has a mild amount of vascular calcification in the left renal pelvis region. Postcontrast images show no evid ence of hydronephrosis, mass, or infarct. Very mild nonspecific perinephric changes are seen adjacent to the left kidney. Right kidney: On the noncontrast examination is there appear to be chronic areas of calcification within the posterior aspect of the mid to upper pole of the right kidney. There is also calcifications identified in the right renal pelvis. Largest measure at least 11 millimeters in size. This appears to be causing some chronic elements of obstruction and ureteral dilatation. There are also multiple nonenhancing renal cystic lesions identified extending into the mid and lower pole region of the right kidney. There is moderate renal cortical thinning adjacent to these regions. No solid lesions are clearly seen in the right kidney. VASCULATURE: Scattered mural plaque throughout the aorta without aneurysmal dilatation. No aortic aneurysm. BOWEL: No small bowel dilatation is seen. Mild chronic diverticular changes are seen in the sigmoid colon region. Terminal ileum is unremarkable. APPENDIX: There is evidence of a dilated fluid-filled appendix measuring up to 11 millimeters in size. On a few of the images there appears to be the suggestion of some mild periappendiceal inflammatory changes. There is also some mild fluid noted extending into the right inferior paracolic gutter just posterior to the cecum. Subclinical appendicitis cannot be excluded. No focal fluid collection to suggest perforation or abscess is noted. PERITONEUM: Mild ascites is seen in the right lower quadrant region. No evidence of free intraperitoneal air. No mesenteric thickening seen. There is also a minimal amount of fluid seen in the left side of the pelvis. LYMPH NODES: Mild nonspecific scattered lymph nodes in the celiac and SMA region. No significant retroperitoneal adenopathy or inguinal adenopathy. BLADDER: Unremarkable. REPRODUCTIVE: Prostate gland is enlarged. BONES: No fracture seen. No lytic process noted. OTHER FINDINGS: No inguinal hernias. IMPRESSION: No CT scan evidence of aortic dissection. No CT scan evidence of pulmonary embolism. Atherosclerotic changes of the aorta with minor aneurysmal dilatation in the ascending aorta. Nonspecific interstitial changes and dependent atelectasis at the lung bases with mild nonspecific subtle ground-glass. Mild nonspecific scattered mediastinal adenopathy, more than likely reactive. Dilated fluid-filled appendix with some possible subtle adjacent inflammatory changes. Subclinical appendicitis is not excluded on this examination. This was not mentioned on the preliminary report and was placed into the PA review folder. Probable chronic obstructive changes of the right kidney with cortical thinning and scarring. There also a large of septated nonenhancing cysts seen extending from the inferior and mid pole region of the right kidney. Findings may reflect chronic staghorn calculus although no definite enhancement to suggest xanthogranulomatous pyelonephritis is seen. A portion of the cyst may be parapelvic although there does appear to be some elements of right renal chronic hydronephrosis. Left kidney is unremarkable. Report was called to the emergency room PA at the time of this dictation.. Assessment & Plan (1) Abdominal pain Status: Acute Priority: High (2) Appendicitis Status: Acute Priority: High (3) Diabetes mellitus Status: Chronic Priority: Medium (4) HTN (hypertension) Status: Chronic (5) Leukocytosis Status: Acute - Assessment and Plan (Free Text) Assessment: A/P- 72 year old male with HTN, DM II, prostate ca s/p radiation admitted with abd pain and nausea nad vomiting POD #1 for lap apepndectomy. afebrile increase in wbc today. increase in creatinine today perhaps pre-renal abdomen is distended and pt. not passing flatus yet. plan- can continue with zosyn day #2. advise to add flagyl as well. advise to check abd xray or CT r/o any fluid collection in light of sitention and pain and rise in wbc. also he may need to have hsieh insertion to see if that helps relieve some of the pressure and avoid any urinary retention since creatinine has risen as well. check UA and urine cx. check Blood cx x 2. all labs and imaging and med record notes reviewed. Thank you for allowing me to take part in the care of this patient. All above d/w patient and he verbalizes full understanding of all above and agrees with above plan of care.
[2018-03-16 13:36] LABS: AMYLASE 103 U/L (30-110); LIPASE 104 U/L (23-300)
--- NOTE | 2018-03-16 13:38 | ED PDOC ---
ED Additional Note - Date & Time of Evaluation Date of Evaluation: 03/15/18 Time of Evaluation: 16:00 - Physician Additional Note Physician Additional Note: Called by radiologist due to read of CT abdomen/pelvis showing: No CT scan evidence of aortic dissection. No CT scan evidence of pulmonary embolism. Atherosclerotic changes of the aorta with minor aneurysmal dilatation in the ascending aorta. Nonspecific interstitial changes and dependent atelectasis at the lung bases with mild nonspecific subtle ground-glass. Mild nonspecific scattered mediastinal adenopathy, more than likely reactive. Dilated fluid-filled appendix with some possible subtle adjacent inflammatory changes. Subclinical appendicitis is not excluded on this examination. This was not mentioned on the preliminary report and was placed into the PA review folder. Probable chronic obstructive changes of the right kidney with cortical thinning and scarring. There also a large of septated nonenhancing cysts seen extending from the inferior and mid pole region of the right kidney. Findings may reflect chronic staghorn calculus although no definite enhancement to suggest xanthogranulomatous pyelonephritis is seen. A portion of the cyst may be parapelvic although there does appear to be some elements of right renal chronic hydronephrosis. Left kidney is unremarkable. Pt had been admitted from ED. I spoke with covering physician, Dr. Floyd, re: finding of possible subclinical appendicitis. ED attending informed. Per Dr. Floyd, surgical consult to be ordered by ED attending.
[2018-03-16 13:43] LABS: INR 1.1; PROTHROMBIN TIME 12.7 Seconds (9.8-13.1)
[2018-03-16 13:45] LABS: PARTIAL THROMBOPLASTIN TIME 24.4 Seconds (25.6-37.1)
--- NOTE | 2018-03-16 16:07 | CP.PCM.PN ---
Subjective - Date & Time of Evaluation Date of Evaluation: 03/16/18 Time of Evaluation: 15:00 - Subjective Subjective: F/U Lap Ap, abdominal pain. Minimal post surgical pain, not other complaint. Objective - Vital Signs/Intake and Output Vital Signs (last 24 hours): Temp Pulse Resp BP Pulse Ox 98.7 F 83 20 119/69 95 03/16/18 16:06 03/16/18 16:06 03/16/18 16:06 03/16/18 16:06 03/16/18 16:06 Intake and Output: 03/16/18 03/16/18 06:59 18:59 Intake Total 600 Balance 600 - Medications Medications: Current Medications Hydromorphone HCl (Dilaudid) 0.5 mg IVP Q6H PRN PRN Reason: Pain, severe (8-10) Piperacillin Sod/Tazobactam (Sod 3.375 gm/ Sodium Chloride) 100 mls @ 100 mls/hr IVPB Q12 [facility]; Protocol Last Admin: 03/16/18 09:53 Dose: 100 mls/hr Lactated Ringer's (Lactated Ringer's) 1,000 mls @ 999 mls/hr IV .Q1H1M AMY Nitroglycerin (Nitrostat Sl Tab) 0.4 mg SL Q5M PRN PRN Reason: Pain, severe (8-10) Last Admin: 03/15/18 04:43 Dose: 0.4 mg Oxycodone/Acetaminophen (Percocet 5/325 Mg Tab) 2 tab PO Q4 PRN PRN Reason: Pain, moderate (4-7) Stop: 03/18/18 19:42 Pantoprazole Sodium (Protonix Inj) 40 mg IVP BID [facility] Last Admin: 03/16/18 10:14 Dose: 40 mg - Labs Labs: 03/16/18 04:20 03/16/18 04:20 PT 12.7 Seconds (9.8-13.1) 03/16/18 13:05 INR 1.1 03/16/18 13:05 APTT 24.4 Seconds (25.6-37.1) L 03/16/18 13:05 - Constitutional Appears: No Acute Distress - Head Exam Head Exam: NORMAL INSPECTION - Eye Exam Eye Exam: PERRL - ENT Exam ENT Exam: Normal Exam - Neck Exam Neck Exam: Normal Inspection - Respiratory Exam Respiratory Exam: Decreased Breath Sounds (at bases) Additional comments: Few crackles at bases - Cardiovascular Exam Cardiovascular Exam: REGULAR RHYTHM - GI/Abdominal Exam GI & Abdominal Exam: Soft, Tenderness (around surgical site.), Normal Bowel Sounds. absent: Distended, Guarding, Rebound - Extremities Exam Extremities Exam: Normal Inspection - Back Exam Back Exam: NORMAL INSPECTION - Neurological Exam Neurological Exam: Alert, Oriented x3. absent: Motor Sensory Deficit - Psychiatric Exam Psychiatric exam: Normal Affect, Normal Mood - Skin Skin Exam: Warm Assessment and Plan (1) Abdominal pain Status: Acute (2) Appendicitis Status: Acute (3) Diabetes mellitus Status: Chronic (4) HTN (hypertension) Status: Chronic - Assessment and Plan (Free Text) Plan: Continue IV fluid, Zosyn, Protonix and rest of Tx.
[2018-03-16] MEDS: Lactated Ringer's 1,000 ML IV SCH ×5 (19:42→23:46)
[2018-03-17] MEDS: Lactated Ringer's 1,000 ML IV SCH ×5 (00:47→04:51)
[2018-03-17 01:26] LABS: URINE BILIRUBIN NEGATIVE (NEGATIVE); URINE BLOOD SMALL (NEGATIVE); URINE CLARITY CLEAR (Clear); URINE COLOR YELLOW (YELLOW); URINE GLUCOSE (UA) NEG (Normal); URINE LEUKOCYTE ESTERASE SMALL Leu/uL (Negative); URINE PROTEIN 30 mg/dL (NEGATIVE); URINE UROBILINOGEN 0.2-1.0 mg/dL (0.2-1.0)
[2018-03-17 05:32] LABS: CALCIUM 8.2 mg/dL (8.4-10.2)
[2018-03-17 06:20] LABS: BASO # 0.1 K/uL (0.0-0.2); EOS # 0.3 K/uL (0.0-0.7); EOS % 2.7 % (0.0-4.0); LYMPH # 1.3 K/uL (1.0-4.3); LYMPH % 12.8 % (20.0-40.0); MEAN CELL VOLUME 86.1 fl (80.0-94.0); MEAN CORPUSCULAR HEMOGLOBIN 27.4 pg (27.0-31.0); MEAN CORPUSCULAR HGB CONC 31.8 g/dL (33.0-37.0); MEAN PLATELET VOLUME 12.1 fl (7.2-11.7); MONO # 1.1 K/uL (0.0-0.8); MONO % 10.8 % (0.0-10.0); NEUT # 7.1 K/uL (1.8-7.0); NEUT % 72.7 % (50.0-75.0); RBC 3.63 Mil/uL (4.40-5.90); RED CELL DISTRIBUTION WIDTH 15.2 % (11.5-14.5); WHITE BLOOD COUNT 9.8 K/uL (4.8-10.8)
--- NOTE | 2018-03-17 07:12 | CP.PCM.PN ---
Subjective - Date & Time of Evaluation Date of Evaluation: 03/17/18 Time of Evaluation: 07:10 - Subjective Subjective: Surgery PT seen and examined. Pt had urinary retention yesterday. Leal inserted. Using IS. OOB. PAin controlled. [place]ing diet. Denies fever, nausea, vomiting. No BM. Objective - Vital Signs/Intake and Output Vital Signs (last 24 hours): Temp Pulse Resp BP Pulse Ox 98.4 F 74 18 143/74 96 03/17/18 05:00 03/17/18 05:00 03/17/18 05:00 03/17/18 05:00 03/17/18 05:00 - Medications Medications: Current Medications Hydromorphone HCl (Dilaudid) 0.5 mg IVP Q6H PRN PRN Reason: Pain, severe (8-10) Piperacillin Sod/Tazobactam (Sod 3.375 gm/ Sodium Chloride) 100 mls @ 100 mls/hr IVPB Q12 AMY; Protocol Last Admin: 03/16/18 22:18 Dose: 100 mls/hr Lactated Ringer's (Lactated Ringer's) 1,000 mls @ 999 mls/hr IV .Q1H1M AMY Last Admin: 03/17/18 04:51 Dose: Not Given Nitroglycerin (Nitrostat Sl Tab) 0.4 mg SL Q5M PRN PRN Reason: Pain, severe (8-10) Last Admin: 03/15/18 04:43 Dose: 0.4 mg Oxycodone/Acetaminophen (Percocet 5/325 Mg Tab) 2 tab PO Q4 PRN PRN Reason: Pain, moderate (4-7) Stop: 03/18/18 19:42 Pantoprazole Sodium (Protonix Inj) 40 mg IVP BID [facility] Last Admin: 03/16/18 18:29 Dose: 40 mg - Labs Labs: 03/17/18 05:00 03/17/18 04:45 PT 12.7 Seconds (9.8-13.1) 03/16/18 13:05 INR 1.1 03/16/18 13:05 APTT 24.4 Seconds (25.6-37.1) L 03/16/18 13:05 - Constitutional Appears: No Acute Distress - Head Exam Head Exam: ATRAUMATIC, NORMAL INSPECTION, NORMOCEPHALIC - Eye Exam Eye Exam: EOMI, Normal appearance, PERRL Pupil Exam: NORMAL ACCOMODATION, PERRL - ENT Exam ENT Exam: Mucous Membranes Moist - Neck Exam Neck Exam: Full ROM, Normal Inspection. absent: Lymphadenopathy - Respiratory Exam Respiratory Exam: NORMAL BREATHING PATTERN - Cardiovascular Exam Cardiovascular Exam: REGULAR RHYTHM - GI/Abdominal Exam GI & Abdominal Exam: Distended, Soft. absent: Firm, Guarding, Rigid, Tenderness Additional comments: Ecchymosis around the incision site. - Exam Exam: NORMAL INSPECTION (Leal in place) - Extremities Exam Extremities Exam: Full ROM - Back Exam Back Exam: NORMAL INSPECTION - Neurological Exam Neurological Exam: Alert, Awake, CN II-XII Intact, Normal Gait, Oriented x3 - Psychiatric Exam Psychiatric exam: Normal Affect, Normal Mood - Skin Skin Exam: Dry, Intact, Warm Assessment and Plan - Assessment and Plan (Free Text) Assessment: POD 2 s/p lap appy -AMbulate -IS -REgular diet -Clear for DC once urinate Will MIRANDA Fu
[2018-03-17] MEDS ORDERED: Enoxaparin 30 mg Syringe SC SCH (09:00)
[2018-03-17] MEDS: Piperacillin/Tazobact 3.375 GM in Sodium Chloride 0.9% 100 ML IVPB SCH ×2 (09:10→21:42)
[2018-03-17] MEDS: metroNIDAZOLE 500mg/100ml NS 100 ML IVPB SCH ×2 (10:07→16:43)
[2018-03-17 12:46] LABS: HEMOGLOBIN 10.1 g/dL (12.0-18.0); MEAN CORPUSCULAR HEMOGLOBIN 27.6 pg (27.0-31.0); MEAN CORPUSCULAR HGB CONC 31.4 g/dL (33.0-37.0); RBC 3.66 Mil/uL (4.40-5.90); RED CELL DISTRIBUTION WIDTH 15.3 % (11.5-14.5); WHITE BLOOD COUNT 8.1 K/uL (4.8-10.8)
[2018-03-17 12:56] LABS: CALCIUM 8.4 mg/dL (8.4-10.2)
--- NOTE | 2018-03-17 13:07 | CP.PCM.PN ---
Subjective - Date & Time of Evaluation Date of Evaluation: 03/17/18 Time of Evaluation: 12:10 - Subjective Subjective: F/U S/P Lap/Abd pain. No A/D, no c/o minimal post surgical pain. Objective - Vital Signs/Intake and Output Vital Signs (last 24 hours): Temp Pulse Resp BP Pulse Ox 98.0 F 75 20 153/79 H 96 03/17/18 09:30 03/17/18 09:30 03/17/18 09:30 03/17/18 09:30 03/17/18 09:30 - Medications Medications: Current Medications Docusate Sodium (Colace) 100 mg PO BID [facility] Last Admin: 03/17/18 09:14 Dose: 100 mg Enoxaparin Sodium (Lovenox) 40 mg SC DAILY [facility]; Protocol Hydromorphone HCl (Dilaudid) 0.5 mg IVP Q6H PRN PRN Reason: Pain, severe (8-10) Piperacillin Sod/Tazobactam (Sod 3.375 gm/ Sodium Chloride) 100 mls @ 100 mls/hr IVPB Q12 [facility]; Protocol Last Admin: 03/17/18 09:10 Dose: 100 mls/hr Metronidazole (Flagyl 500mg/100ml Ns) 100 mls @ 100 mls/hr IVPB Q8 [facility]; Protocol Last Admin: 03/17/18 10:07 Dose: 100 mls/hr Nitroglycerin (Nitrostat Sl Tab) 0.4 mg SL Q5M PRN PRN Reason: Pain, severe (8-10) Last Admin: 03/15/18 04:43 Dose: 0.4 mg Oxycodone/Acetaminophen (Percocet 5/325 Mg Tab) 2 tab PO Q4 PRN PRN Reason: Pain, moderate (4-7) Stop: 03/18/18 19:42 Pantoprazole Sodium (Protonix Inj) 40 mg IVP BID [facility] Last Admin: 03/17/18 09:09 Dose: 40 mg Tamsulosin HCl (Flomax) 0.8 mg PO DAILY [facility] Last Admin: 03/17/18 09:31 Dose: 0.8 mg - Labs Labs: 03/17/18 12:43 03/17/18 12:43 PT 12.7 Seconds (9.8-13.1) 03/16/18 13:05 INR 1.1 03/16/18 13:05 APTT 24.4 Seconds (25.6-37.1) L 03/16/18 13:05 - Constitutional Appears: No Acute Distress - Head Exam Head Exam: NORMAL INSPECTION - Eye Exam Eye Exam: Normal appearance - ENT Exam ENT Exam: Normal Exam - Neck Exam Neck Exam: Normal Inspection - Respiratory Exam Respiratory Exam: Decreased Breath Sounds (at bases) Additional comments: Few crackles at bases - Cardiovascular Exam Cardiovascular Exam: REGULAR RHYTHM - GI/Abdominal Exam GI & Abdominal Exam: Soft, Normal Bowel Sounds. absent: Guarding, Tenderness, Rebound Additional comments: Surgical incision healing well, ecchymosis around surgical area - Extremities Exam Extremities Exam: Normal Inspection - Back Exam Back Exam: NORMAL INSPECTION - Neurological Exam Neurological Exam: Alert, Oriented x3. absent: Motor Sensory Deficit - Psychiatric Exam Psychiatric exam: Normal Affect, Normal Mood - Skin Skin Exam: Warm Assessment and Plan (1) Abdominal pain Status: Acute (2) Appendicitis Status: Acute (3) Diabetes mellitus Status: Chronic (4) HTN (hypertension) Status: Chronic - Assessment and Plan (Free Text) Plan: Continue Zosyn, Flagyl and rest of Tx.
[2018-03-18] MEDS: metroNIDAZOLE 500mg/100ml NS 100 ML IVPB SCH ×2 (00:18→09:33)
[2018-03-18 06:39] LABS: ALBUMIN (PEP) 3.4 g/dL (3.8-4.8); ALPHA-1-GLOBULIN (PEP) 0.3 g/dL (0.2-0.3)
[2018-03-18 07:36] VITALS: RESP 20
[2018-03-18] MEDS ORDERED: Enoxaparin 40 mg Syringe SC SCH (09:00)
[2018-03-18] MEDS: Piperacillin/Tazobact 3.375 GM in Sodium Chloride 0.9% 100 ML IVPB SCH (09:35)
--- NOTE | 2018-03-18 10:55 | CP.PCM.PN ---
Subjective - Date & Time of Evaluation Date of Evaluation: 03/18/18 Time of Evaluation: 10:53 - Subjective Subjective: Surgery PT seen and examined. No acute events. [place] removed and voided. Denies pain, fever, nausea, vomiting, diarrhea, CP, SOB. Tolerating diet. Ambulates. Objective - Vital Signs/Intake and Output Vital Signs (last 24 hours): Temp Pulse Resp BP Pulse Ox 98.2 F 65 20 150/76 99 03/18/18 07:35 03/18/18 07:35 03/18/18 07:35 03/18/18 07:35 03/18/18 07:35 - Medications Medications: Current Medications Docusate Sodium (Colace) 100 mg PO BID [facility] Last Admin: 03/18/18 09:32 Dose: 100 mg Enoxaparin Sodium (Lovenox) 40 mg SC DAILY [facility]; Protocol Last Admin: 03/18/18 09:32 Dose: 40 mg Hydromorphone HCl (Dilaudid) 0.5 mg IVP Q6H PRN PRN Reason: Pain, severe (8-10) Piperacillin Sod/Tazobactam (Sod 3.375 gm/ Sodium Chloride) 100 mls @ 100 mls/hr IVPB Q12 [facility]; Protocol Last Admin: 03/18/18 09:35 Dose: 100 mls/hr Metronidazole (Flagyl 500mg/100ml Ns) 100 mls @ 100 mls/hr IVPB Q8 [facility]; Steve col Last Admin: 03/18/18 09:33 Dose: 100 mls/hr Nitroglycerin (Nitrostat Sl Tab) 0.4 mg SL Q5M PRN PRN Reason: Pain, severe (8-10) Last Admin: 03/15/18 04:43 Dose: 0.4 mg Oxycodone/Acetaminophen (Percocet 5/325 Mg Tab) 2 tab PO Q4 PRN PRN Reason: Pain, moderate (4-7) Stop: 03/18/18 19:42 Pantoprazole Sodium (Protonix Inj) 40 mg IVP BID [facility] Last Admin: 03/18/18 09:35 Dose: 40 mg Tamsulosin HCl (Flomax) 0.8 mg PO DAILY [facility] Last Admin: 03/18/18 09:34 Dose: 0.8 mg - Labs Labs: 03/17/18 12:43 03/17/18 12:43 PT 12.7 Seconds (9.8-13.1) 03/16/18 13:05 INR 1.1 03/16/18 13:05 APTT 24.4 Seconds (25.6-37.1) L 03/16/18 13:05 - Constitutional Appears: No Acute Distress - Head Exam Head Exam: ATRAUMATIC, NORMAL INSPECTION, NORMOCEPHALIC - Eye Exam Eye Exam: EOMI, Normal appearance, PERRL Pupil Exam: NORMAL ACCOMODATION, PERRL - ENT Exam ENT Exam: Mucous Membranes Moist, Normal Exam - Neck Exam Neck Exam: Normal Inspection - Respiratory Exam Respiratory Exam: NORMAL BREATHING PATTERN - Cardiovascular Exam Cardiovascular Exam: REGULAR RHYTHM - GI/Abdominal Exam GI & Abdominal Exam: Soft. absent: Distended, Firm, Tenderness Additional comments: Incision sites has eccymosis - Exam Exam: NORMAL INSPECTION - Back Exam Back Exam: NORMAL INSPECTION - Neurological Exam Neurological Exam: Alert, Normal Gait, Oriented x3 - Psychiatric Exam Psychiatric exam: Normal Affect, Normal Mood - Skin Skin Exam: Dry, Intact, Normal Color, Warm Assessment and Plan - Assessment and Plan (Free Text) Assessment: POD 3 s/p lap appy -AMbulate -IS -REgular diet -Clear for DC for surgical standpoint -follow up at Dr. Fu's office in 1-2 weeks Will MIRANDA Fu
[2018-03-18 12:03] VITALS: BP 149/82; PULSE 66; TEMP 98.3; O2SAT 95
--- NOTE | 2018-03-18 13:07 | CP.PCM.DIS ---
Provider - Provider Date of Admission: 03/15/18 10:24 Attending physician: Shakeel Floyd MD Consults: Gastroenterology-Dr. Hess General Surgery-Dr. Fu ID-Dr. Lee Time Spent in preparation of Discharge (in minutes): 35 Diagnosis - Discharge Diagnosis (1) Abdominal pain Status: Acute Priority: High (2) Appendicitis Status: Acute Priority: High (3) Diabetes mellitus Status: Chronic Priority: Medium (4) HTN (hypertension) Status: Chronic Hospital Course - Lab Results Lab Results: Micro Results 03/16/18 07:58 Urine,Leal Urine Culture - Final No Growth (<1,000 CFU/ML) 03/15/18 16:00 Blood-Venous Blood Culture - Preliminary NO GROWTH AFTER 48 HOURS 03/15/18 15:50 Blood-Venous Blood Culture - Preliminary NO GROWTH AFTER 48 HOURS Most Recent Lab Values WBC 8.1 K/uL (4.8-10.8) 03/17/18 12:43 RBC 3.66 Mil/uL (4.40-5.90) L 03/17/18 12:43 Hgb 10.1 g/dL (12.0-18.0) L 03/17/18 12:43 Hct 32.2 % (35.0-51.0) L 03/17/18 12:43 MCV 88.0 fl (80.0-94.0) 03/17/18 12:43 MCH 27.6 pg (27.0-31.0) 03/17/18 12:43 MCHC 31.4 g/dL (33.0-37.0) L 03/17/18 12:43 RDW 15.3 % (11.5-14.5) H 03/17/18 12:43 Plt Count 94 K/uL (130-400) L 03/17/18 12:43 MPV 12.1 fl (7.2-11.7) H 03/17/18 05:00 Neut % (Auto) 72.7 % (50.0-75.0) 03/17/18 05:00 Lymph % (Auto) 12.8 % (20.0-40.0) L 03/17/18 05:00 [place] % (Auto) 10.8 % (0.0-10.0) H 03/17/18 05:00 Eos % (Auto) 2.7 % (0.0-4.0) 03/17/18 05:00 Baso % (Auto) 1.0 % (0.0-2.0) 03/17/18 05:00 Neut # (Auto) 7.1 K/uL (1.8-7.0) H 03/17/18 05:00 Lymph # (Auto) 1.3 K/uL (1.0-4.3) 03/17/18 05:00 [place] # (Auto) 1.1 K/uL (0.0-0.8) H 03/17/18 05:00 Eos # (Auto) 0.3 K/uL (0.0-0.7) 03/17/18 05:00 Baso # (Auto) 0.1 K/uL (0.0-0.2) 03/17/18 05:00 Neutrophils % (Manual) 88 % (42-75) H 03/15/18 04:48 Lymphocytes % (Manual) 7 % (20-50) L 03/15/18 04:48 Monocytes % (Manual) 4 % (0-10) 03/15/18 04:48 Basophils % (Manual) 1 % (0-2) 03/15/18 04:48 Platelet Estimate Normal (NORMAL) 03/15/18 04:48 PT 12.7 Seconds (9.8-13.1) 03/16/18 13:05 INR 1.1 03/16/18 13:05 APTT 24.4 Seconds (25.6-37.1) L 03/16/18 13:05 Sodium 138 mmol/l (132-148) 03/17/18 12:43 Potassium 3.9 MMOL/L (3.6-5.0) 03/17/18 12:43 Chloride 108 mmol/L (98-107) H 03/17/18 12:43 Carbon Dioxide 21 mmol/L (22-30) L 03/17/18 12:43 Anion Gap 13 (10-20) 03/17/18 12:43 BUN 24 mg/dl (9-20) H 03/17/18 12:43 Creatinine 1.5 mg/dl (0.8-1.5) 03/17/18 12:43 Est GFR ( Amer) 56 03/17/18 12:43 Est GFR (Non-Af Amer) 46 03/17/18 12:43 POC Glucose (mg/dL) 135 mg/dL (65-110) H 03/18/18 05:29 Random Glucose 159 mg/dL (75-110) H 03/17/18 12:43 Lactic Acid 2.0 MMOL/L (0.7-2.1) 03/16/18 10:24 Calcium 8.4 mg/dL (8.4-10.2) 03/17/18 12:43 Magnesium 1.7 MG/DL (1.6-2.3) 03/16/18 10:24 Total Bilirubin 2.0 mg/dl (0.2-1.3) H 03/16/18 04:20 AST 55 U/L (17-59) 03/16/18 04:20 ALT 47 U/L (21-72) 03/16/18 04:20 Alkaline Phosphatase 50 U/L (38-126) 03/16/18 04:20 Troponin I 0.0140 ng/mL (0.00-0.120) 03/15/18 13:10 NT-Pro-B Natriuret Pep 761 pg/ml (0-900) 03/15/18 13:10 Total Protein 6.8 G/DL (6.3-8.2) 03/16/18 04:20 Total Protein (PEP) 7.2 g/dL (6.1-8.1) 03/15/18 13:10 Albumin 3.3 g/dL (3.5-5.0) L D 03/16/18 04:20 Albumin (PEP) 3.4 g/dL (3.8-4.8) L 03/15/18 13:10 Globulin 3.5 gm/dL (2.2-3.9) 03/16/18 04:20 Albumin/Globulin Ratio 1.0 (1.0-2.1) 03/16/18 04:20 Qbwdh-4-Neeraxilz 0.3 g/dL (0.2-0.3) 03/15/18 13:10 Hwnec-2-Tkgkhxzxg 0.9 g/dL (0.5-0.9) 03/15/18 13:10 Umii-2-Ibskxljc 0.5 g/dL (0.4-0.6) 03/15/18 13:10 Hqjr-3-Evhowmbe 0.6 g/dL (0.2-0.5) H 03/15/18 13:10 Gamma Globulins 1.5 g/dL (0.8-1.7) 03/15/18 13:10 Abnorm Protein Band 1 TEST NOT PERFORMED 03/15/18 13:10 Abnorm Protein Band 2 TEST NOT PERFORMED 03/15/18 13:10 Abnorm Protein Band 3 TEST NOT PERFORMED 03/15/18 13:10 Amylase 103 U/L (30-110) 03/16/18 13:05 Lipase 104 U/L (23-300) 03/16/18 13:05 Urine Color Yellow (YELLOW) 03/17/18 01:16 Urine Clarity Clear (Clear) 03/17/18 01:16 Urine pH 7.0 (5.0-8.0) 03/17/18 01:16 Ur Specific [employer] 1.011 (1.003-1.030) 03/17/18 01:16 Urine Protein 30 mg/dL (NEGATIVE) 03/17/18 01:16 Urine Glucose (UA) Neg mg/dL (Normal) 03/17/18 01:16 Urine Ketones Negative mg/dL (NEGATIVE) 03/17/18 01:16 Urine Blood Small (NEGATIVE) 03/17/18 01:16 Urine Nitrate Negative (NEGATIVE) 03/17/18 01:16 Urine Bilirubin Negative (NEGATIVE) 03/17/18 01:16 Urine Urobilinogen 0.2-1.0 mg/dL (0.2-1.0) 03/17/18 01:16 Ur Leukocyte Esterase Small Cynthia/uL (Negative) 03/17/18 01:16 Urine RBC (Auto) 5 /hpf (0-3) H 03/17/18 01:16 Urine Microscopic WBC 1 /hpf (0-5) 03/17/18 01:16 Ur Random Creatinine 68 mg/dL (20-320) 03/15/18 13:15 U Random Total Protein 3971 mg/g creat (22-128) H 03/15/18 13:15 Urine Opiates Screen Positive (NEGATIVE) H 03/15/18 13:15 Ur Opiates (GC/MS) Positive 300 (Negative) H 03/15/18 16:00 Urine Methadone Screen Negative (NEGATIVE) 03/15/18 13:15 Ur Methadone, Qual Negative 300 (Negative) 03/15/18 16:00 Urine Propoxyphene Negative 300 (Negative) 03/15/18 16:00 Methaqualone Negative 300 (Negative) 03/15/18 16:00 Ur Barbiturates Screen Negative (NEGATIVE) 03/15/18 13:15 Ur Barbiturates, Qual Negative 300 (Negative) 03/15/18 16:00 Ur Phencyclidine Scrn Negative (NEGATIVE) 03/15/18 13:15 Ur Phencyclidine (PCP) Negative 25 (Negative) 03/15/18 16:00 Ur Amphetamines Screen Negative 1000 (Negative) 03/15/18 16:00 U Benzodiazepines Scrn Negative (NEGATIVE) 03/15/18 13:15 U Benzodiazepines Qual Negative 300 (Negative) 03/15/18 16:00 Urine Cocaine Negative 300 (Negative) 03/15/18 16:00 U Oth Cocaine Metabols Negative (NEGATIVE) 03/15/18 13:15 U Cannabinoids Screen Negative (NEGATIVE) 03/15/18 13:15 U Marijuana (THC) Screen Negative 50 (Negative) 03/15/18 16:00 Drugs of Abuse Note See note 03/15/18 16:00 POLI & SPEP Interp See note 03/15/18 13:10 - Date & Time of H&P Date of H&P: 03/15/18 Time of H&P: 14:30 Discharge Exam - Head Exam Head Exam: ATRAUMATIC, NORMAL INSPECTION, NORMOCEPHALIC - Eye Exam Eye Exam: Normal appearance - ENT Exam ENT Exam: Normal Exam - Neck Exam Neck exam: Normal Inspection - Respiratory Exam Respiratory Exam: Decreased Breath Sounds (at bases) Additional comments: Few crackles at bases - Cardiovascular Exam Cardiovascular Exam: REGULAR RHYTHM - GI/Abdominal Exam GI & Abdominal Exam: Normal Bowel Sounds, Soft. absent: Guarding, Rebound, Tenderness Additional comments: Surgical incision healing well, ecchymosis around surgical area - Extremities Exam Extremities exam: normal inspection - Back Exam Back exam: NORMAL INSPECTION - Neurological Exam Neurological exam: Alert, Oriented x3 Additional comments: No motor sensory deficit - Psychiatric Exam Psychiatric exam: Normal Affect, Normal Mood - Skin Skin Exam: Warm Discharge Plan - Follow Up Plan Condition: FAIR Disposition: HOME/ ROUTINE Patient education suggested?: Yes Instructions: Chest Pain (DC), Appendectomy, Laparoscopic Surgery (DC) Additional Instructions: follow up at Dr. Fu's office in 1-2 weeks OK to shower. Keep glue on. No heavy lifting for 1 month. Referrals: Lesly Fu MD [Staff Provider] - Darrell Prescott MD [Family Provider] - Shakeel Floyd MD [Staff Provider] -
--- NOTE | 2018-03-19 11:43 | CP.PCM.PCO ---
Assessment & Plan - Assessment and Plan (Free Text) Assessment: Notified by Micro lab regading a Blood cx result positive for Gram positive cocci in chains - 2nd set of blood cx negative, Patient and his daughter notified and instructed patient to come to ER for repeat blood cx Patient to go to ER and have repeat blood cx, Vancomycin IV and on cosult notified of above
[2018-03-20 10:44] LABS: ALBUMIN 69.7 %
--- NOTE | 2018-03-20 11:49 | CP.PCM.PN ---
Subjective - Date & Time of Evaluation Date of Evaluation: 03/17/18 Time of Evaluation: 19:00 - Subjective Subjective: no overnight events Objective - Vital Signs/Intake and Output Vital Signs (last 24 hours): Temp Pulse Resp BP Pulse Ox 98.3 F 66 20 149/82 95 03/18/18 12:03 03/18/18 12:03 03/18/18 12:03 03/18/18 12:03 03/18/18 12:03 - Labs Labs: 03/17/18 12:43 03/17/18 12:43 PT 12.7 Seconds (9.8-13.1) 03/16/18 13:05 INR 1.1 03/16/18 13:05 APTT 24.4 Seconds (25.6-37.1) L 03/16/18 13:05 - Head Exam Head Exam: NORMOCEPHALIC - Neck Exam Neck Exam: Normal Inspection - Respiratory Exam Respiratory Exam: NORMAL BREATHING PATTERN - Cardiovascular Exam Cardiovascular Exam: REGULAR RHYTHM - GI/Abdominal Exam GI & Abdominal Exam: Soft, Normal Bowel Sounds Assessment and Plan - Assessment and Plan (Free Text) Assessment: 72 yo male with abd pain tolerating diet dc planning once able
--- NOTE | 2018-03-23 08:47 | CON ---
DATE: HISTORY OF PRESENT ILLNESS: A 72-year-old man with a history of hypertension, diabetes, asthma who comes in for abdominal pain, chest pain and discomfort with radiation to the right upper quadrant, some vomiting and some shortness of breath. Currently, the patient is lying in bed comfortably, in no apparent distress. PAST MEDICAL HISTORY: As above. PAST SURGICAL HISTORY: As above. MEDICATIONS: Have been reviewed. REVIEW OF SYSTEMS: All other systems have been reviewed and negative apart from the HPI. PHYSICAL EXAMINATION: GENERAL: A pleasant elderly female, lying in bed comfortably, in no apparent distress. VITAL SIGNS: Here in the hospital grossly unremarkable. HEENT: Head: Normocephalic and atraumatic. Eyes: Pupils are equally reactive to light bilaterally. No conjunctival pallor or icterus. NECK: Supple. Normal range of motion. No lymphadenopathy appreciated. LUNGS: Coarse breath sounds bilaterally. HEART: S1 and S2. Regular rate and rhythm. No murmurs appreciated. ABDOMEN: Soft and nontender. Bowel sounds present. No rebound. No guarding. RECTAL: Deferred. EXTREMITIES: Pulses present bilaterally. SKIN: Warm, dry and intact. NEUROLOGIC: Alert, awake, and oriented x3. LABORATORY DATA: All labs and radiology have been reviewed. WBC is 13.1, hemoglobin is 11. Lactic acid is now normal. Creatinine is 2.6 and BUN 32. Opiate is positive in the urine as well as morphine. ASSESSMENT AND PLAN: This is a 72-year-old male with epigastric pain and discomfort, rule out cardiac etiology. From a gastroenterology standpoint, the patient tolerated diet. We will do endoscopy electively once cleared by Cardiology. Thank you for the consult. Jose Hess MD/ PhD cc: Shakeel Floyd MD
--- NOTE | 2018-04-17 13:43 | PQF ---
PROVIDER RESPONSE TEXT: Pancreatitis was ruled out REVIEWER QUERY TEXT: Documentation Clarification Your help is requested in clarifying the following clinical documentation, if you can please further specify in the medical record and discharge summary if you agree with the documentation of pancreatit is. ruled in- ruled out- The patient's Clinical Indicators include: 03/[address] Nieves "suspect pancreatitis." 03/15 lipase [id number] Query created by: Melly Bee on 03/20/2018 7:50 AM Electronically signed by: Shakeel Floyd MD 04/17/2018 1:40 PM
== END 2018-03-18 13:40 | disposition home or self-care (01) | DRG 343 ==
LOC: H.ER 04:00 → H.ERHOLD 10:24 → H.TEL 23:08
PROVIDERS: ADMIT Internal Medicine Pulmonary Disease; ATTEND Internal Medicine Pulmonary Disease
PROC: 0DTJ4ZZ Resection of Appendix, Percutaneous Endoscopic Approach (ICD-10-PCS; principal; 2018-03-15 21:30)
DX: K35.80 Unspecified acute appendicitis (principal); N20.0 Calculus of kidney; Z85.46 Personal history of malignant neoplasm of prostate; Z92.3 Personal history of irradiation; E78.5 Hyperlipidemia, unspecified; F17.290 Nicotine dependence, other tobacco product, uncomplicated; I10 Essential (primary) hypertension; J45.909 Unspecified asthma, uncomplicated; I25.10 Atherosclerotic heart disease of native coronary artery without angina pectoris; E10.9 Type 1 diabetes mellitus without complications; R33.9 Retention of urine, unspecified; I95.9 Hypotension, unspecified; Z79.4 Long term (current) use of insulin; Z79.82 Long term (current) use of aspirin

== ENCOUNTER 2018-03-19 12:27 | Inpatient (IN) | payer MEDICARE, OTHER ==
[2018-03-19] MEDS ORDERED: metroNIDAZOLE 500mg/100ml NS 100 ML IVPB STA (12:57)
[2018-03-19] MEDS ORDERED: Piperacillin/Tazobact 3.375 GM in Sodium Chloride 0.9% 100 ML IVPB STA (12:57)
[2018-03-19 13:10] LABS: VENOUS BLOOD GAS PCO2 34 mmHg (40-60); VENOUS BLOOD GAS PO2 33 mm/Hg (30-55); VENOUS BLOOD PH 7.35 (7.32-7.43)
[2018-03-19] MEDS: Sodium Chloride 0.9% 1,000 ML IV STA ×2 (13:10→19:10)
--- NOTE | 2018-03-19 13:12 | ED PDOC ---
HPI: General Adult Time Seen by Provider: 03/19/18 12:48 Chief Complaint (Nursing): Weakness/Neurological Deficit Chief Complaint (Provider): Weakness/Neurological Deficit History Per: Patient History/Exam Limitations: no limitations Onset/Duration Of Symptoms: Days (x 4) Current Symptoms Are (Timing): Still Present Additional Complaint(s): 72 year old male with a history of hypertension, asthma and diabetes was referred to the ED by PMD due to positive blood culture results. Patient is s/p appendectomy on 03/15 and culture is growing gram positive cocci prompting the return to the ED. He is feeling weak and lethargic. Denies abdominal pain, vomiting, fever and chills. PMD: Dr. Floyd Past Medical History Reviewed: Historical Data, Nursing Documentation, Vital Signs Vital Signs: Last Vital Signs Temp 96.6 F L 03/19/18 12:32 Pulse 62 03/19/18 12:32 Resp 16 03/19/18 12:32 BP 79/43 L 03/19/18 12:32 Pulse Ox 97 03/19/18 12:32 - Medical History PMH: Asthma, HTN, Hyperlipidemia Denies: Chronic Kidney Disease - Surgical History Surgical History: Appendectomy (on 03/15/2018) - Family History Family History: States: Unknown Family Hx - Home Medications Home Medications: Ambulatory Orders Medication Instructions Recorded Aspirin 325 mg PO DAILY 02/13/18 Brimonidine Tartrate/Timolol 1 drop EACHEYE Q12 02/13/18 [Combigan 0.2%-0.5% Eye Drops] Carvedilol [Coreg] 12.5 mg PO Q12 02/13/18 Insulin Glargine,Hum.rec.anlog 30 unit SC DAILY 02/13/18 [Toudavy Solostar] Leuprolide Acetate [Eligard] 22.5 mg SC Q3M 02/13/18 Nitroglycerin [Nitrostat] 0.4 mg SL Q5MIN PRN 02/13/18 Olmesartan/Hydrochlorothiazide 1 tab PO DAILY 02/13/18 [Benicar Hct 40-12.5 mg Tablet] Tamsulosin [Flomax] 0.4 mg PO DAILY 02/13/18 Travoprost [Travatan Z] 1 drop EACHEYE HS 02/13/18 Omeprazole 20 mg PO DAILY 03/15/18 Oxybutynin Chloride [Oxybutynin 10 mg PO DAILY 03/15/18 Chloride ER] Atorvastatin [Lipitor] 10 mg PO HS 03/19/18 Isosorbide Mononitrate ER [Imdur 30 mg PO DAILY 03/19/18 ER] Umeclidinium Brm/Vilanterol Tr 1 puff IH DAILY 03/19/18 [Anoro Ellipta 62.5-25 Mcg INH] - Allergies Allergies/Adverse Reactions: Allergies Allergy/AdvReac Type Severity Reaction Status Date / Time No Known Allergies Allergy Verified 03/19/18 12:32 Review of Systems ROS Statement: Except As Marked, All Systems Reviewed And Found Negative Constitutional: Positive for: Weakness (and lethargy). Negative for: Fever, Chills Gastrointestinal: Negative for: Nausea, Vomiting, Abdominal Pain Physical Exam - Reviewed Nursing Documentation Reviewed: Yes Vital Signs Reviewed: Yes - Physical Exam Appears: Positive for: Non-toxic, No Acute Distress Head Exam: Positive for: ATRAUMATIC, NORMAL INSPECTION, NORMOCEPHALIC Skin: Positive for: Normal Color, Warm, Dry Eye Exam: Positive for: EOMI, Normal appearance, PERRL Neck: Positive for: Normal, Painless ROM, Supple Cardiovascular/Chest: Positive for: Regular Rate, Rhythm. Negative for: Tachycardia Respiratory: Positive for: Decreased Breath Sounds. Negative for: Wheezing, Respiratory Distress Gastrointestinal/Abdominal: Positive for: Soft, Distended (with ecchymosis noted at surgical sites). Negative for: Tenderness Extremity: Positive for: Normal ROM (upper and lower extremities). Negative for: Deformity, Swelling Neurologic/Psych: Positive for: Alert (awake), Oriented (x 3). Negative for: Motor/Sensory Deficits - Laboratory Results Result Diagrams: 03/19/18 13:05 03/19/18 13:05 - ECG ECG Rhythm: Positive for: Sinus Bradycardia, Premature Ventricular Contraction Rate: 53 O2 Sat by Pulse Oximetry: 97 (RA) Pulse Ox Interpretation: Normal - Critical Care Total Time (In Min): 45 Documented Critical Care: Time excludes all time spent performint seperately mae lable procedures Medical Decision Making Medical Decision Makin:05 Impression: weakness s/p appendectomy Initial Plan: --VBG --Abd & Pelvis CT --CMP --CXR --CBC --PT/INR --Glucose POC --Flagyl 500m/100ml IVPB --NS IV --Vancomycin 1 gm/250ml IVPB --Piperacillin 3.375 gm/100ml IVPB --Blood cx --urine cx --UA Code Sepsis called. 13:29 Right femoral central line placed; indication of hypotension; Need for IV fluids, IV antibiotics and possible IV pressors. 13:53 --Patient will be admitted into inpatient care due to severe sepsis. Scribe Attestation: Documented by Velevt Coles, acting as a scribe for Devon Ngo MD Provider Scribe Attestation: All medical record entries made by the Scribe were at my direction and personally dictated by me. I have reviewed the chart and agree that the record accurately reflects my personal performance of the history, physical exam, medical decision making, and the department course for this patient. I have also personally directed, reviewed, and agree with the discharge instructions and disposition. Procedures - Central Line Central Line Lumen: triple Central Line Procedure: betadine prep, sterile drapes applied, sterile dressing applied Central Line Postion: femoral (R) Anesthesia: Lidocaine (1%) Central Line Post Position: good blood return Disposition - Clinical Impression Clinical Impression: Severe sepsis - Patient ED Disposition Is Patient to be Admitted: Yes - Disposition Disposition Time: 14:29 Condition: GUARDED Forms: [employer] (Albanian) - Pt Status Changed To: Hospital Disposition Of: Inpatient - Admit Certification Admit to Inpatient:: After my assessment, the patient will require hospitalization for at least two midnights. This is because of the severity of symptoms shown, intensity of services needed, and/or the medical risk in this patient being treated as an outpatient. - POA Present On Arrival: None
[2018-03-19] MEDS ORDERED: Piperacillin/Tazobact 3.375 gm Inj IVPB ONE (13:16)
[2018-03-19] MEDS ORDERED: Vancomycin 1 g Inj ONE (13:16)
[2018-03-19 13:27] LABS: BASO # 0.1 K/uL (0.0-0.2); BASO % 1.2 % (0.0-2.0); EOS # 0.4 K/uL (0.0-0.7); EOS % 4.8 % (0.0-4.0); HEMOGLOBIN 11.4 g/dL (12.0-18.0); INR 1.2; LYMPH # 1.4 K/uL (1.0-4.3); LYMPH % 16.6 % (20.0-40.0); MEAN CELL VOLUME 89.1 fl (80.0-94.0); MEAN CORPUSCULAR HEMOGLOBIN 28.1 pg (27.0-31.0); MEAN CORPUSCULAR HGB CONC 31.5 g/dL (33.0-37.0); MONO % 12.1 % (0.0-10.0); NEUT # 5.5 K/uL (1.8-7.0); NEUT % 65.3 % (50.0-75.0); PROTHROMBIN TIME 13.8 Seconds (9.8-13.1); RBC 4.04 Mil/uL (4.40-5.90); RED CELL DISTRIBUTION WIDTH 15.2 % (11.5-14.5); WHITE BLOOD COUNT 8.4 K/uL (4.8-10.8)
[2018-03-19 13:37] LABS: ALBUMIN 4.1 g/dL (3.5-5.0); CALCIUM 9.3 mg/dL (8.4-10.2)
--- NOTE | 2018-03-19 15:00 | RAD ---
HISTORY: cough COMPARISON: Chest x-ray performed 03/15/18 TECHNIQUE: Chest, one view. FINDINGS: LUNGS: Central vascular prominence. Mild pulmonary venous congestion. Please note that chest x-ray has limited sensitivity for the detection of pulmonary masses. PLEURA: No significant pleural effusion identified. No definite pneumothorax . CARDIOVASCULAR: Cardiomegaly. Dense atherosclerotic calcifications of the aorta. OSSEOUS STRUCTURES: Degenerative changes. VISUALIZED UPPER ABDOMEN: Unremarkable. OTHER FINDINGS: None. IMPRESSION: Cardiomegaly. Central vascular prominence. Mild pulmonary venous congestion.
[2018-03-19] MEDS ORDERED: Iodixanol 320 MG/ML 100 ML BOTTLE IV ONE (15:08)
[2018-03-19] MEDS ORDERED: Sodium Chloride 0.9% 50 ML IV ONE (15:08)
[2018-03-19 15:17] LABS: SQUAMOUS EPITHIAL < 1 /hpf (0-5); URINE BACTERIA MOD (<OCC); URINE BILIRUBIN NEGATIVE (NEGATIVE); URINE BLOOD SMALL (NEGATIVE); URINE CLARITY CLOUDY (Clear); URINE COLOR YELLOW (YELLOW); URINE GLUCOSE (UA) 50 mg/dL (Normal); URINE LEUKOCYTE ESTERASE LARGE Leu/uL (Negative); URINE PROTEIN NEGATIVE (NEGATIVE); URINE UROBILINOGEN 0.2-1.0 mg/dL (0.2-1.0)
[2018-03-19 16:40] LABS: VENOUS BLOOD GAS BASE EXCESS -3.6 mmol/L (0.0-2.0); VENOUS BLOOD GAS PCO2 38 mmHg (40-60); VENOUS BLOOD GAS PO2 27 mm/Hg (30-55); VENOUS BLOOD PH 7.36 (7.32-7.43)
--- NOTE | 2018-03-19 16:41 | CT ---
Date of service: 03/19/2018 PROCEDURE: CT Abdomen and Pelvis with contrast HISTORY: Abdominal pain and sepsis. Possible urinary tract infection. Relevant surgical history: Recent appendectomy COMPARISON: 03/15/2018 CT abdomen and pelvis TECHNIQUE: Intravenous contrast dose: 100 cc Visipaque 320 Radiation dose: Total exam DLP = 828.42 mGy-cm. This CT exam was performed using one or more of the following dose reduction techniques: Automated exposure control, adjustment of the mA and/or kV according to patient size, and/or use of iterative reconstruction technique. FINDINGS: LOWER THORAX: Atelectasis at the lung bases. LIVER: Hepatic steatosis. No focal masses. No intrahepatic bile duct dilatation or perihepatic ascites. GALLBLADDER AND BILE DUCTS: Unremarkable. PANCREAS: Unremarkable. No gross lesion or ductal dilatation. SPLEEN: Unremarkable. ADRENALS: Unremarkable. No mass. KIDNEYS AND URETERS: Evidence of polycystic kidney disease affecting the right kidney to a greater extent than the left. Bilateral renal calculus disease more prominent on the right than the left. Calculi the largest of which measures 12 mm in the collecting system on the right. Additional smaller calculi identified bilaterally. VASCULATURE: Unremarkable. No aortic aneurysm. Atherosclerotic calcification and mural plaque present. Findings are seen throughout the aorta BOWEL: Diverticulosis without an acute inflammatory component or other associated pathologic process. APPENDIX: Postoperative changes related to prior appendectomy right lower quadrant. Edematous changes from the surgical procedure and anasarca noted cutaneous and subcutaneous tissues of the abdomen. PERITONEUM: Unremarkable. No free fluid. No free air. LYMPH NODES: Unremarkable. No enlarged lymph nodes. BLADDER: Leal catheter in a decompressed urinary bladder. REPRODUCTIVE: Unremarkable. BONES: No acute fracture. OTHER FINDINGS: None. IMPRESSION: Postoperative findings related to recent appendectomy. Calculus disease bilaterally right greater than left. Additional benign and/or incidental findings described above. Communication of results: I discussed the findings with the referring physician to the emergency department Dr. Lebron at 16:19.
--- NOTE | 2018-03-19 16:47 | PCM.SEPTIC ---
Sepsis Progress Note - Reassessment Type Date of Evaluation: 03/19/18 Time of Evaluation: 16:46 Reassessment Type: Non-invasive reassessment - Non Invasive Reassessment Were the most recent vital sign reviewed: Yes Vital Sign (Latest): Temp Pulse Resp BP Pulse Ox 97.5 F L 56 L 19 109/68 96 03/19/18 16:13 03/19/18 16:13 03/19/18 16:13 03/19/18 16:13 03/19/18 16:13 Cardiovascular: Yes: Regular Rate, Rhythm Respiratory: Yes: Normal Breath Sounds Capillary Refill: Normal (Less than 2 sec) Pulses: Normal Radial, Normal Dorsalis Pedis, Normal Posterior Tibialis Skin: Normal Color, Warm, Dry - Invasive Reassessment (complete 2 of 4) Was a Central Venous Pressure Measurement obtained within 6 Hours after the presentation of septic shock: No Was a central venous oxygen measurement obtained within 6 hours after the presentation of septic shock: No Was a bedside cardiovascular ultrasound performed within 6 hours after the presentation of septic shock: No Was a passive leg raise performed or was a fluid challenge performed within 6 hrs of the initial fluid bolus: No Passive Leg Raise Result: Not Applicable Fluid Challenge performed: Yes
--- NOTE | 2018-03-19 16:57 | CP.PCM.CON ---
History of Present Illness - History of Present Illness History of Present Illness: General Surgery Consult note Dr Fu consulted for sepsis POD 4 s/p appendectomy Patient is a 72 yr old male with PMH who underwent laparoscopic appendectomy with Dr. Fu 03/15 and was discharged home 03/18 after an uncomplicated postoperative course. Today patient was told to return to the ED due to a positive blood culture result growing G- cocci from 03/15. Upon presentation the patient was hypotensive (76/43), afebrile, nontachycardic. In the Ed patient recieved 1L bolus and was started on IV antibiotics. Patient BP inproved significantly while recieving bolus. Patient states that he feels well and has been able to ambulate at home, void without difficulty and had a normal BM this AM. He denies RIVERA, CP, SOB, f/c, n/v, dizziness, vision changes, abdominal pain, dysuria and extremity pain/weakness. PMH: DM HTN PSH: umbilical hernia repair 4 yrs ago SS: drinks whiskey daily , smokes cigars, marijuana Review of Systems - Review of Systems All systems: reviewed and no additional remarkable complaints except (as per HPI) Past Patient History - Past Medical History & Family History Past Medical History?: Yes - Past Social History Smoking Status: Current Some Days Smoker - CARDIAC Hx Hypertension: Yes - PULMONARY Hx Asthma: Yes - NEUROLOGICAL Hx Neurological Disorder: No - HEENT Hx HEENT Problems: Yes (wear eyeglasses) - RENAL Hx Chronic Kidney Disease: No - ENDOCRINE/METABOLIC Hx Endocrine Disorders: Yes Hx Diabetes Mellitus Type 2: Yes - HEMATOLOGICAL/ONCOLOGICAL Hx Blood Disorders: No - INTEGUMENTARY Hx Dermatological Problems: No - MUSCULOSKELETAL/RHEUMATOLOGICAL Hx Musculoskeletal Disorders: No Hx Falls: No - GASTROINTESTINAL Hx Gastrointestinal Disorders: No - GENITOURINARY/GYNECOLOGICAL Hx Genitourinary Disorders: No - PSYCHIATRIC Hx Psychophysiologic Disorder: No Hx Substance Use: No - SURGICAL HISTORY Hx Appendectomy: Yes (on 03/15/2018) - ANESTHESIA Hx Anesthesia: Yes Hx Anesthesia Reactions: No Hx Malignant Hyperthermia: Yes Meds Allergies/Adverse Reactions: Allergies Allergy/AdvReac Type Severity Reaction Status Date / Time No Known Allergies Allergy Verified 03/19/18 12:32 - Medications Medications: Current Medications Sodium Chloride (Sodium Chloride 0.9%) 1,000 mls @ 100 mls/hr IV .Q10H STA Stop: 03/19/18 22:55 Last Admin: 03/19/18 13:10 Dose: 100 mls/hr Physical Exam - Constitutional Appears: Well, Non-toxic, No Acute Distress - Head Exam Head Exam: ATRAUMATIC, NORMOCEPHALIC - Eye Exam Eye Exam: EOMI, Normal appearance - ENT Exam ENT Exam: Mucous Membranes Moist - Respiratory Exam Respiratory Exam: NORMAL BREATHING PATTERN - Cardiovascular Exam Cardiovascular Exam: REGULAR RHYTHM. absent: Tachycardia - GI/Abdominal Exam GI & Abdominal Exam: Soft. absent: Distended, Guarding, Rebound, Rigid, Tenderness Additional comments: incision sites are cdi with dermabond in place, no erythema, edema or drainage, postoperative ecchymosis over abdomen improving - Extremities Exam Extremities exam: Positive for: pedal pulses present. Negative for: calf tenderness, pedal edema - Neurological Exam Neurological exam: Alert, Oriented x3 - Psychiatric Exam Psychiatric exam: Normal Affect, Normal Mood - Skin Skin Exam: Dry, Intact, Warm Additional comments: ecchymosis surrounding incision sites, improving from previous exams Results - Vital Signs Recent Vital Signs: Last Vital Signs Temp 97.5 F L 03/19/18 16:13 Pulse 56 L 03/19/18 16:13 Resp 19 03/19/18 16:13 BP 109/68 03/19/18 16:13 Pulse Ox 96 03/19/18 16:13 - Labs Result Diagrams: 03/19/18 13:05 03/19/18 13:05 Labs: Laboratory Results - last 24 hr 03/19/18 03/19/18 03/19/18 12:45 13:02 13:05 WBC 8.4 RBC 4.04 L Hgb 11.4 L Hct 36.0 MCV 89.1 MCH 28.1 MCHC 31.5 L RDW 15.2 H Plt Count 177 MPV 11.0 Neut % (Auto) 65.3 Lymph % (Auto) 16.6 L Lake % (Auto) 12.1 H Eos % (Auto) 4.8 H Baso % (Auto) 1.2 Neut # (Auto) 5.5 Lymph # (Auto) 1.4 Lake # (Auto) 1.0 H Eos # (Auto) 0.4 Baso # (Auto) 0.1 PT INR pO2 33 VBG pH 7.35 VBG pCO2 34 L VBG HCO3 19.2 VBG Total CO2 19.8 L VBG O2 Sat (Calc) 64.3 VBG Base Excess -6.0 L VBG Potassium 3.4 L Sodium 137.0 Chloride 103.0 Glucose 179 H Lactate 3.4 H FiO2 21.0 Potassium Carbon Dioxide Anion Gap BUN Creatinine Est GFR ( Amer) Est GFR (Non-Af Amer) POC Glucose (mg/dL) 151 H Random Glucose Calcium Total Bilirubin AST ALT Alkaline Phosphatase Total Protein Albumin Globulin Albumin/Globulin Ratio Venous Blood Potassium 3.4 L Urine Color Urine Clarity Urine pH Ur Specific [place] Urine Protein Urine Glucose (UA) Urine Ketones Urine Blood Urine Nitrate Urine Bilirubin Urine Urobilinogen Ur Leukocyte Esterase Urine RBC (Auto) Urine Microscopic WBC Ur Squamous Epith Cells Urine Bacteria 03/19/18 03/19/18 03/19/18 13:05 13:05 14:32 WBC RBC Hgb Hct MCV MCH MCHC RDW Plt Count MPV Neut % (Auto) Lymph % (Auto) Lake % (Auto) Eos % (Auto) Baso % (Auto) Neut # (Auto) Lymph # (Auto) Lake # (Auto) Eos # (Auto) Baso # (Auto) PT 13.8 H INR 1.2 pO2 VBG pH VBG pCO2 VBG HCO3 VBG Total CO2 VBG O2 Sat (Calc) VBG Base Excess VBG Potassium Sodium 137 Chloride 108 H Glucose Lactate FiO2 Potassium 4.4 Carbon Dioxide 18 L Anion Gap 15 BUN 17 Creatinine 1.6 H Est GFR ( Amer) 52 Est GFR (Non-Af Amer) 43 POC Glucose (mg/dL) Random Glucose 173 H Calcium 9.3 Total Bilirubin 2.1 H AST 78 H D ALT 30 Alkaline Phosphatase 78 Total Protein 8.0 Albumin 4.1 Globulin 3.9 Albumin/Globulin Ratio 1.0 Venous Blood Potassium Urine Color Yellow Urine Clarity Cloudy Urine pH 6.0 Ur Specific [place] 1.013 Urine Protein Negative Urine Glucose (UA) 50 Urine Ketones Negative Urine Blood Small Urine Nitrate Negative Urine Bilirubin Negative Urine Urobilinogen 0.2-1.0 Ur Leukocyte Esterase Large Urine RBC (Auto) 12 H Urine Microscopic WBC 68 H Ur Squamous Epith Cells < 1 Urine Bacteria Mod H 03/19/18 16:30 WBC RBC Hgb Hct MCV MCH MCHC RDW Plt Count MPV Neut % (Auto) Lymph % (Auto) Lake % (Auto) Eos % (Auto) Baso % (Auto) Neut # (Auto) Lymph # (Auto) Lake # (Auto) Eos # (Auto) Baso # (Auto) PT INR pO2 27 L VBG pH 7.36 VBG pCO2 38 L VBG HCO3 20.8 VBG Total CO2 22.7 VBG O2 Sat (Calc) 49.9 VBG Base Excess -3.6 L VBG Potassium 3.8 Sodium 137.0 Chloride 108.0 H Glucose 157 H Lactate 1.3 FiO2 21.0 Potassium Carbon Dioxide Anion Gap BUN Creatinine Est GFR ( Amer) Est GFR (Non-Af Amer) POC Glucose (mg/dL) Random Glucose Calcium Total Bilirubin AST ALT Alkaline Phosphatase Total Protein Albumin Globulin Albumin/Globulin Ratio Venous Blood Potassium 3.8 Urine Color Urine Clarity Urine pH Ur Specific [place] Urine Protein Urine Glucose (UA) Urine Ketones Urine Blood Urine Nitrate Urine Bilirubin Urine Urobilinogen Ur Leukocyte Esterase Urine RBC (Auto) Urine Microscopic WBC Ur Squamous Epith Cells Urine Bacteria Assessment & Plan - Assessment and Plan (Free Text) Assessment: 72 yr old male POD 4 s/p Lap appendectomy with G+ cocci in blood cultures and hypotension upon presentation Plan: c/w IV abx maintain vitals will continue to monitor d/w Dr. Tank Mccauley, PGY 1 - Date & Time Date: 03/19/18 Time: 15:15
--- NOTE | 2018-03-19 18:12 | CP.CCUPN ---
CCU Subjective - Physician Review Subjective (Free Text): 72M admitted today after returning to ER for a call-back for positive blood cultures, underwent Lap Appy 4 days ago; noted to be hypotensive on arrival with nausea and generalized weakness. No tachycardia noted, but hypotensive to 70s systolic, given up to 3000ml fluid challenge and remained hypotensive prompting TLC placement and vasopressor support. Awake and alert, spo2 100% on 100% NRBM, does not appear distressed, awaiting CTAP study. Denies any recent fevers or chills, no CP or SOB. Recd empiric doses of Vanco / Zosyn and Flagyl in ER. Code Sepsis called. Other vitals and I/O's reviewed. Afebrile on presentation, 96/58, HR 62 sinus, RR 19, Leal placed: now 100ml in bag. ROS: No other pertinent negs or positives on 10+ system review. ALLERGIES: NKDA HOME MEDS: ASA, Atorvastatin, Coreg, Glargine insulin, Eligard, Olmesartan, Flomax, Travatn, Umeclidinium, Brimonidine/[place] eye gtts PMSFH: All other Nursing and physician documentation reviewed to date; no new pertinent info noted relevant to current medical problems. EXAM- HEENT: no icterus, no gaze preference, Pupils 3 mm and reactive NECK: No JVD visible, supple, carotids equal upstroke bilat/no bruit CHEST: clear bilateral BS , no wheezes audible HEART: regular, distant, S1S2, no rubs ABD: softly distended, no guarding, no tympany; no organomegaly, BS hypoactive. Ecchymoses over upper abdomen and lateral abdominal denis. Lap wounds dry and intact without tenderness or drainage. EXT: no LE edema, no calf tenderness or palpable cords, distal pulses intact and symmetrical. NEURO: moves all extremities spontaneously. SKIN: no rashes, warm and dry LABS: WBC= 58.4 HGB= 10.4 PLTs= 177K INR = 1.2 7.35/34/33-- Lactate = 3.4 VBG Na= 137 K= 4.4 RF=152 HCO3= 18 BUN/Cr= 17/1.6 BS= 173 Blood Cx from 03/15/18 One bottle + Gram positive cocci. EKG: sinus 53/min, PVC, long QT (my interp). CXR: (my interp): minor bibasilar interstitial changes. IMPRESSION / MAJOR PROBLEMS NOW: 1. Septic Shock, r/o bacteremia 2. S/p Lap Appy, r/o Ileus, Intra-abdominal bleeding 3. Azotemia, r/o ATN, versus Dehydration PLAN: 1. IVF challenges prn, would increase to 4-5 liters given patients weight and overall size. No s/sx clinical CHF, looks dry. Wean vasopressors. Serial Lactates till normalized. 2. CTAP 3. Blood and urine cultures. 4. Ongoing empiric abx coverage as initially started in ER. 5. Gen Surgical eval.
[2018-03-19] MEDS ORDERED: metroNIDAZOLE 500mg/100ml NS 100 ML IVPB SCH (18:45)
[2018-03-20 06:02] LABS: BASO # 0.1 K/uL (0.0-0.2); BASO % 1.2 % (0.0-2.0); EOS # 0.4 K/uL (0.0-0.7); EOS % 5.1 % (0.0-4.0); HEMOGLOBIN 10.8 g/dL (12.0-18.0); LYMPH # 1.1 K/uL (1.0-4.3); LYMPH % 14.3 % (20.0-40.0); MEAN CELL VOLUME 86.5 fl (80.0-94.0); MEAN CORPUSCULAR HEMOGLOBIN 27.7 pg (27.0-31.0); MEAN PLATELET VOLUME 10.7 fl (7.2-11.7); MONO # 1.3 K/uL (0.0-0.8); MONO % 16.7 % (0.0-10.0); NEUT # 4.8 K/uL (1.8-7.0); NEUT % 62.7 % (50.0-75.0); NRBC % 0.2 % (0.0-0.0); RBC 3.92 Mil/uL (4.40-5.90); RED CELL DISTRIBUTION WIDTH 15.3 % (11.5-14.5); WHITE BLOOD COUNT 7.7 K/uL (4.8-10.8)
[2018-03-20 06:08] LABS: INR 1.2; PROTHROMBIN TIME 13.4 Seconds (9.8-13.1)
[2018-03-20 06:10] LABS: PARTIAL THROMBOPLASTIN TIME 32.2 Seconds (25.6-37.1)
[2018-03-20 06:25] LABS: ALBUMIN 3.4 g/dL (3.5-5.0); ALT/SGPT 51 U/L (21-72); AST/SGOT 58 U/L (17-59); BLOOD UREA NITROGEN 14 mg/dl (9-20); CALCIUM 8.7 mg/dL (8.4-10.2); GFR NON-AFRICAN AMERICAN 54
[2018-03-20] MEDS: metroNIDAZOLE 500mg/100ml NS 100 ML IVPB SCH ×2 (06:35→15:21)
--- NOTE | 2018-03-20 08:43 | CP.PCM.CON ---
History of Present Illness - History of Present Illness History of Present Illness: Infectious Disease Consultation Note- asked to see this patient at the request of for positive blood cx. HPI- Patient is a pleasant 72 year old male who was recently at the hospital and is s/p lap appendectomy on 03/15/2018 who was d/c on 03/18/2018 as per primary doc and surgical doc. he was recalled because his admission blood cx was reported yesterday as gram positive cocci in pairs. I had seen the patietn on 03/16/2018 for consult since pt. had fever and I had advised to continue wmpiric antibiotics and place hsieh since pt's cret was higher and his abdomen was distended and i had ordered abd xray as well. I was not informed that pt. was being discharged . Pt. was also found to be hypotensive in ED yesterday and was on pressor for few hours in ICU but today his BP is good off pressors. pt. denies any fever or chills, denies any RIVERA, denies any dizziness, denies nay nausea or vomiting. He states his abdominal pain and distention is less. denies any diarrhea. Has been eating . He denies any dysurea and states is able to urinate without any problems. Review of Systems - Review of Systems Review of Systems: ROS- denies any fever or chills, denies any RIVERA, denies any cough, denies any sob, denies any chest pain, still has abdominal distention but less than before, denies any diarrhea, states he urinates well now without any difficulty, denies any dysurea has bruising on abdomen increased since few days ago Past Patient History - Past Medical History & Family History Past Medical History?: Yes - Past Social History Smoking Status: Current Some Days Smoker - CARDIAC Hx Hypertension: Yes - PULMONARY Hx Asthma: Yes - NEUROLOGICAL Hx Neurological Disorder: No - HEENT Hx HEENT Problems: Yes (wear eyeglasses) - RENAL Hx Chronic Kidney Disease: No - ENDOCRINE/METABOLIC Hx Endocrine Disorders: Yes Hx Diabetes Mellitus Type 2: Yes - HEMATOLOGICAL/ONCOLOGICAL Hx Blood Disorders: No - INTEGUMENTARY Hx Dermatological Problems: No - MUSCULOSKELETAL/RHEUMATOLOGICAL Hx Musculoskeletal Disorders: No Hx Falls: No - GASTROINTESTINAL Hx Gastrointestinal Disorders: No - GENITOURINARY/GYNECOLOGICAL Hx Genitourinary Disorders: No - PSYCHIATRIC Hx Psychophysiologic Disorder: No Hx Substance Use: No - SURGICAL HISTORY Hx Appendectomy: Yes (on 03/15/2018) - ANESTHESIA Hx Anesthesia: Yes Hx Anesthesia Reactions: No Hx Malignant Hyperthermia: Yes Meds Allergies/Adverse Reactions: Allergies Allergy/AdvReac Type Severity Reaction Status Date / Time No Known Allergies Allergy Verified 03/19/18 12:32 - Medications Medications: Current Medications Acetaminophen (Tylenol 325mg Tab) 650 mg PO Q6 PRN PRN Reason: Other Aspirin (Ecotrin) 325 mg PO DAILY [facility] Atorvastatin Calcium (Lipitor) 10 mg PO DAILY [facility] Carvedilol (Coreg) 12.5 mg PO Q12 [facility] Vancomycin HCl 1 gm/ Sodium (Chloride) 250 mls @ 166.667 mls/hr IVPB DAILY [facility]; Protocol Piperacillin Sod/Tazobactam (Sod 2.25 gm/ Sodium Chloride) 100 mls @ 100 mls/hr IVPB Q6 [facility]; Protocol Last Admin: 03/20/18 03:57 Dose: 100 mls/hr Metronidazole (Flagyl 500mg/100ml Ns) 100 mls @ 100 mls/hr IVPB Q8H [facility]; Protocol Last Admin: 03/20/18 06:35 Dose: 100 mls/hr Tamsulosin HCl (Flomax) 0.4 mg PO DAILY [facility] Tramadol HCl (Ultram) 50 mg PO Q6 PRN PRN Reason: Pain, severe (8-10) Last Admin: 03/20/18 04:05 Dose: 50 mg Physical Exam - Constitutional Appears: No Acute Distress - Head Exam Head Exam: ATRAUMATIC - Eye Exam Eye Exam: EOMI, PERRL - ENT Exam ENT Exam: Normal Oropharynx - Neck Exam Neck exam: Positive for: Full Rom - Respiratory Exam Respiratory Exam: Clear to Auscultation Bilateral, NORMAL BREATHING PATTERN - Cardiovascular Exam Cardiovascular Exam: RRR, +S1, +S2 - GI/Abdominal Exam GI & Abdominal Exam: Distended Additional comments: slightly softer than on 03/16/2018 but has ecchymosis all over the abdomen no tenderness with palpation no guarding, No rebound - Extremities Exam Extremities exam: Positive for: normal inspection - Neurological Exam Neurological exam: Alert, Oriented x3 Results - Vital Signs Recent Vital Signs: Last Vital Signs Temp 98.7 F 03/20/18 07:55 Pulse 64 03/20/18 07:55 Resp 13 03/20/18 07:55 BP 142/75 03/20/18 07:55 Pulse Ox 96 03/20/18 07:55 - Labs Result Diagrams: 03/20/18 05:01 03/20/18 05:01 Labs: Laboratory Results - last 24 hr 03/19/18 03/19/18 03/19/18 12:45 13:02 13:05 WBC 8.4 RBC 4.04 L Hgb 11.4 L Hct 36.0 MCV 89.1 MCH 28.1 MCHC 31.5 L RDW 15.2 H Plt Count 177 MPV 11.0 Neut % (Auto) 65.3 Lymph % (Auto) 16.6 L [place] % (Auto) 12.1 H Eos % (Auto) 4.8 H Baso % (Auto) 1.2 Neut # (Auto) 5.5 Lymph # (Auto) 1.4 [place]ow # (Auto) 1.0 H Eos # (Auto) 0.4 Baso # (Auto) 0.1 PT INR APTT pO2 33 VBG pH 7.35 VBG pCO2 34 L VBG HCO3 19.2 VBG Total CO2 19.8 L VBG O2 Sat (Calc) 64.3 VBG Base Excess -6.0 L VBG Potassium 3.4 L Sodium 137.0 Chloride 103.0 Glucose 179 H Lactate 3.4 H FiO2 21.0 Potassium Carbon Dioxide Anion Gap BUN Creatinine Est GFR ( Amer) Est GFR (Non-Af Amer) POC Glucose (mg/dL) 151 H Random Glucose Lactic Acid Calcium Total Bilirubin AST ALT Alkaline Phosphatase Total Protein Albumin Globulin Albumin/Globulin Ratio Venous Blood Potassium 3.4 L Urine Color Urine Clarity Urine pH Ur Specific [place] Urine Protein Urine Glucose (UA) Urine Ketones Urine Blood Urine Nitrate Urine Bilirubin Urine Urobilinogen Ur Leukocyte Esterase Urine RBC (Auto) Urine Microscopic WBC Ur Squamous Epith Cells Urine Bacteria 03/19/18 03/19/18 03/19/18 13:05 13:05 14:32 WBC RBC Hgb Hct MCV MCH MCHC RDW Plt Count MPV Neut % (Auto) Lymph % (Auto) Bart[place] % (Auto) Eos % (Auto) Baso % (Auto) Neut # (Auto) Lymph # (Auto) [place] # (Auto) Eos # (Auto) Baso # (Auto) PT 13.8 H INR 1.2 APTT pO2 VBG pH VBG pCO2 VBG HCO3 VBG Total CO2 VBG O2 Sat (Calc) VBG Base Excess VBG Potassium Sodium 137 Chloride 108 H Glucose Lactate FiO2 Potassium 4.4 Carbon Dioxide 18 L Anion Gap 15 BUN 17 Creatinine 1.6 H Est GFR ( Amer) 52 Est GFR (Non-Af Amer) 43 POC Glucose (mg/dL) Random Glucose 173 H Lactic Acid Calcium 9.3 Total Bilirubin 2.1 H AST 78 H D ALT 30 Alkaline Phosphatase 78 Total Protein 8.0 Albumin 4.1 Globulin 3.9 Albumin/Globulin Ratio 1.0 Venous Blood Potassium Urine Color Yellow Urine Clarity Cloudy Urine pH 6.0 Ur Specific [place]uxier 1.013 Urine Protein Negative Urine Glucose (UA) 50 Urine Ketones Negative Urine Blood Small Urine Nitrate Negative Urine Bilirubin Negative Urine Urobilinogen 0.2-1.0 Ur Leukocyte Esterase Large Urine RBC (Auto) 12 H Urine Microscopic WBC 68 H Ur Squamous Epith Cells < 1 Urine Bacteria Mod H 03/19/18 03/20/18 03/20/18 16:30 05:01 05:01 WBC 7.7 RBC 3.92 L Hgb 10.8 L Hct 33.9 L MCV 86.5 D MCH 27.7 MCHC 32.0 L RDW 15.3 H Plt Count 140 MPV 10.7 Neut % (Auto) 62.7 Lymph % (Auto) 14.3 L [place] % (Auto) 16.7 H Eos % (Auto) 5.1 H Baso % (Auto) 1.2 Neut # (Auto) 4.8 Lymph # (Auto) 1.1 Bartow # (Auto) 1.3 H Eos # (Auto) 0.4 Baso # (Auto) 0.1 PT 13.4 H INR 1.2 APTT 32.2 pO2 27 L VBG pH 7.36 VBG pCO2 38 L VBG HCO3 20.8 VBG Total CO2 22.7 VBG O2 Sat (Calc) 49.9 VBG Base Excess -3.6 L VBG Potassium 3.8 Sodium 137.0 Chloride 108.0 H Glucose 157 H Lactate 1.3 FiO2 21.0 Potassium Carbon Dioxide Anion Gap BUN Creatinine Est GFR ( Amer) Est GFR (Non-Af Amer) POC Glucose (mg/dL) Random Glucose Lactic Acid Calcium Total Bilirubin AST ALT Alkaline Phosphatase Total Protein Albumin Globulin Albumin/Globulin Ratio Venous Blood Potassium 3.8 Urine Color Urine Clarity Urine pH Ur Specific [place] Urine Protein Urine Glucose (UA) Urine Ketones Urine Blood Urine Nitrate Urine Bilirubin Urine Urobilinogen Ur Leukocyte Esterase Urine RBC (Auto) Urine Microscopic WBC Ur Squamous Epith Cells Urine Bacteria 03/20/18 03/20/18 05:01 05:01 WBC RBC Hgb Hct MCV MCH MCHC RDW Plt Count MPV Neut % (Auto) Lymph % (Auto) Bartow % (Auto) Eos % (Auto) Baso % (Auto) Neut # (Auto) Lymph # (Auto) Bartow # (Auto) Eos # (Auto) Baso # (Auto) PT INR APTT pO2 VBG pH VBG pCO2 VBG HCO3 VBG Total CO2 VBG O2 Sat (Calc) VBG Base Excess VBG Potassium Sodium 138 Chloride 109 H Glucose Lactate FiO2 Potassium 3.7 Carbon Dioxide 21 L Anion Gap 12 BUN 14 Creatinine 1.3 Est GFR ( Amer) > 60 Est GFR (Non-Af Amer) 54 POC Glucose (mg/dL) Random Glucose 135 H Lactic Acid 0.9 Calcium 8.7 Total Bilirubin 1.9 H AST 58 ALT 51 Alkaline Phosphatase 76 Total Protein 7.0 Albumin 3.4 L Globulin 3.6 Albumin/Globulin Ratio 1.0 Venous Blood Potassium Urine Color Urine Clarity Urine pH Ur Specific [place] Urine Protein Urine Glucose (UA) Urine Ketones Urine Blood Urine Nitrate Urine Bilirubin Urine Urobilinogen Ur Leukocyte Esterase Urine RBC (Auto) Urine Microscopic WBC Ur Squamous Epith Cells Urine Bacteria Laboratory Results - last 72 hr 03/19/18 03/19/18 03/19/18 12:45 13:02 13:05 WBC 8.4 RBC 4.04 L Hgb 11.4 L Hct 36.0 MCV 89.1 MCH 28.1 MCHC 31.5 L RDW 15.2 H Plt Count 177 MPV 11.0 Neut % (Auto) 65.3 Lymph % (Auto) 16.6 L [place] % (Auto) 12.1 H Eos % (Auto) 4.8 H Baso % (Auto) 1.2 Neut # (Auto) 5.5 Lymph # (Auto) 1.4 [place] # (Auto) 1.0 H Eos # (Auto) 0.4 Baso # (Auto) 0.1 PT INR APTT pO2 33 VBG pH 7.35 VBG pCO2 34 L VBG HCO3 19.2 VBG Total CO2 19.8 L VBG O2 Sat (Calc) 64.3 VBG Base Excess -6.0 L VBG Potassium 3.4 L Sodium 137.0 Chloride 103.0 Glucose 179 H Lactate 3.4 H FiO2 21.0 Potassium Carbon Dioxide Anion Gap BUN Creatinine Est GFR ( Amer) Est GFR (Non-Af Amer) POC Glucose (mg/dL) 151 H Random Glucose Lactic Acid Calcium Total Bilirubin AST ALT Alkaline Phosphatase Total Protein Albumin Globulin Albumin/Globulin Ratio Venous Blood Potassium 3.4 L Urine Color Urine Clarity Urine pH Ur Specific [place] Urine Protein Urine Glucose (UA) Urine Ketones Urine Blood Urine Nitrate Urine Bilirubin Urine Urobilinogen Ur Leukocyte Esterase Urine RBC (Auto) Urine Microscopic WBC Ur Squamous Epith Cells Urine Bacteria 03/19/18 03/19/18 03/19/18 13:05 13:05 14:32 WBC RBC Hgb Hct MCV MCH MCHC RDW Plt Count MPV Neut % (Auto) Lymph % (Auto) [place] % (Auto) Eos % (Auto) Baso % (Auto) Neut # (Auto) Lymph # (Auto) [place] # (Auto) Eos # (Auto) Baso # (Auto) PT 13.8 H INR 1.2 APTT pO2 VBG pH VBG pCO2 VBG HCO3 VBG Total CO2 VBG O2 Sat (Calc) VBG Base Excess VBG Potassium Sodium 137 Chloride 108 H Glucose Lactate FiO2 Potassium 4.4 Carbon Dioxide 18 L Anion Gap 15 BUN 17 Creatinine 1.6 H Est GFR ( Amer) 52 Est GFR (Non-Af Amer) 43 POC Glucose (mg/dL) Random Glucose 173 H Lactic Acid Calcium 9.3 Total Bilirubin 2.1 H AST 78 H D ALT 30 Alkaline Phosphatase 78 Total Protein 8.0 Albumin 4.1 Globulin 3.9 Albumin/Globulin Ratio 1.0 Venous Blood Potassium Urine Color Yellow Urine Clarity Cloudy Urine pH 6.0 Ur Specific [place] 1.013 Urine Protein Negative Urine Glucose (UA) 50 Urine Ketones Negative Urine Blood Small Urine Nitrate Negative Urine Bilirubin Negative Urine Urobilinogen 0.2-1.0 Ur Leukocyte Esterase Large Urine RBC (Auto) 12 H Urine Microscopic WBC 68 H Ur Squamous Epith Cells < 1 Urine Bacteria Mod H 03/19/18 03/19/18 03/20/18 16:30 22:01 05:01 WBC 7.7 RBC 3.92 L Hgb 10.8 L Hct 33.9 L MCV 86.5 D MCH 27.7 MCHC 32.0 L RDW 15.3 H Plt Count 140 MPV 10.7 Neut % (Auto) 62.7 Lymph % (Auto) 14.3 L [place] % (Auto) 16.7 H Eos % (Auto) 5.1 H Baso % (Auto) 1.2 Neut # (Auto) 4.8 Lymph # (Auto) 1.1 [place] # (Auto) 1.3 H Eos # (Auto) 0.4 Baso # (Auto) 0.1 PT INR APTT pO2 27 L VBG pH 7.36 VBG pCO2 38 L VBG HCO3 20.8 VBG Total CO2 22.7 VBG O2 Sat (Calc) 49.9 VBG Base Excess -3.6 L VBG Potassium 3.8 Sodium 137.0 Chloride 108.0 H Glucose 157 H Lactate 1.3 FiO2 21.0 Potassium Carbon Dioxide Anion Gap BUN Creatinine Est GFR ( Amer) Est GFR (Non-Af Amer) POC Glucose (mg/dL) 144 H Random Glucose Lactic Acid Calcium Total Bilirubin AST ALT Alkaline Phosphatase Total Protein Albumin Globulin Albumin/Globulin Ratio Venous Blood Potassium 3.8 Urine Color Urine Clarity Urine pH Ur Specific [place] Urine Protein Urine Glucose (UA) Urine Ketones Urine Blood Urine Nitrate Urine Bilirubin Urine Urobilinogen Ur Leukocyte Esterase Urine RBC (Auto) Urine Microscopic WBC Ur Squamous Epith Cells Urine Bacteria 03/20/18 03/20/18 03/20/18 05:01 05:01 05:01 WBC RBC Hgb Hct MCV MCH MCHC RDW Plt Count MPV Neut % (Auto) Lymph % (Auto) [place] % (Auto) Eos % (Auto) Baso % (Auto) Neut # (Auto) Lymph # (Auto) [place] # (Auto) Eos # (Auto) Baso # (Auto) PT 13.4 H INR 1.2 APTT 32.2 pO2 VBG pH VBG pCO2 VBG HCO3 VBG Total CO2 VBG O2 Sat (Calc) VBG Base Excess VBG Potassium Sodium 138 Chloride 109 H Glucose Lactate FiO2 Potassium 3.7 Carbon Dioxide 21 L Anion Gap 12 BUN 14 Creatinine 1.3 Est GFR ( Amer) > 60 Est GFR (Non-Af Amer) 54 POC Glucose (mg/dL) Random Glucose 135 H Lactic Acid 0.9 Calcium 8.7 Total Bilirubin 1.9 H AST 58 ALT 51 Alkaline Phosphatase 76 Total Protein 7.0 Albumin 3.4 L Globulin 3.6 Albumin/Globulin Ratio 1.0 Venous Blood Potassium Urine Color Urine Clarity Urine pH Ur Specific [place] Urine Protein Urine Glucose (UA) Urine Ketones Urine Blood Urine Nitrate Urine Bilirubin Urine Urobilinogen Ur Leukocyte Esterase Urine RBC (Auto) Urine Microscopic WBC Ur Squamous Epith Cells Urine Bacteria Microbiology 03/16/18 07:58 Urine,Hsieh Urine Culture - Final No Growth (<1,000 CFU/ML) 03/15/18 15:50 Blood-Venous S.aureus & Coag-Neg Staph PNA FISH - Final 03/15/18 15:50 Blood-Venous Gram Stain - Final 03/15/18 16:00 Blood-Venous Blood Culture - Preliminary 03/15/18 16:00 Blood-Venous NO GROWTH AFTER 4 DAYS 03/15/18 15:50 Blood-Venous Blood Culture - Preliminary Gram Positive Cocci Accession No. : [id number] Patient Name / ID : CONNIE Iglesias / [id number] Exam Date : 03/19/2018 15:32:33 ( Approved ) Study Comment : Sex / Age : M / 72Y Creator : Hector Burgos MD Dictator : Hector Burgos MD Property Inspector : Accounts Manager : Hector Burgos MD Approver2 : Report Date : 03/19/2018 16:38:03 My Comment : Date of service: 03/19/2018 PROCEDURE: CT Abdomen and Pelvis with contrast HISTORY: Abdominal pain and sepsis. Possible urinary tract infection. Relevant surgical history: Recent appendectomy COMPARISON: 03/15/2018 CT abdomen and pelvis TECHNIQUE: Intravenous contrast dose: 100 cc Visipaque 320 Radiation dose: Total exam DLP = 828.42 mGy-cm. This CT exam was performed using one or more of the following dose reduction techniques: Automated exposure control, adjustment of the mA and/or kV according to patient size, and/or use of iterative reconstruction technique. FINDINGS: LOWER THORAX: Atelectasis at the lung bases. LIVER: Hepatic steatosis. No focal masses. No intrahepatic bile duct dilatation or perihepatic ascites. GALLBLADDER AND BILE DUCTS: Unremarkable. PANCREAS: Unremarkable. No gross lesion or ductal dilatation. SPLEEN: Unremarkable. ADRENALS: Unremarkable. No mass. KIDNEYS AND URETERS: Evidence of polycystic kidney disease affecting the right kidney to a greater extent than the left. Bilateral renal calculus disease more prominent on the right than the left. Calculi the largest of which measures 12 mm in the collecting system on the right. Additional smaller calculi identified bilaterally. VASCULATURE: Unremarkable. No aortic aneurysm. Atherosclerotic calcification and mural plaque present. Findings are seen throughout the aorta BOWEL: Diverticulosis without an acute inflammatory component or other associated pathologic process. APPENDIX: Postoperative changes related to prior appendectomy right lower quadrant. Edematous changes from the surgical procedure and anasarca noted cutaneous and subcutaneous tissues of the abdomen. PERITONEUM: Unremarkable. No free fluid. No free air. LYMPH NODES: Unremarkable. No enlarged lymph nodes. BLADDER: Hsieh catheter in a decompressed urinary bladder. REPRODUCTIVE: Unremarkable. BONES: No acute fracture. OTHER FINDINGS: None. IMPRESSION: Postoperative findings related to recent appendectomy. Calculus disease bilaterally right greater than left. Additional benign and/or incidental findings described above. Communication of results: I discussed the findings with the referring physician to the emergency department Dr. Lebron at 16:19. Accession No. : [id number] Patient Name / ID : CONNIE Iglesias / [id number] Exam Date : 03/19/2018 13:47:03 ( Approved ) Study Comment : Sex / Age : M / 72Y Creator : Lupe Hanna MD Dictator : Lupe Hanna MD Property Inspector : Accounts Manager : Lupe Hanna MD Approver2 : Report Date : 03/19/2018 14:56:25 My Comment : HISTORY: cough COMPARISON: Chest x-ray performed 03/15/18 TECHNIQUE: Chest, one view. FINDINGS: LUNGS: Central vascular prominence. Mild pulmonary venous congestion. Please note that chest x-ray has limited sensitivity for the detection of pulmonary masses. PLEURA: No significant pleural effusion identified. No definite pneumothorax . CARDIOVASCULAR: Cardiomegaly. Dense atherosclerotic calcifications of the aorta. OSSEOUS STRUCTURES: Degenerative changes. VISUALIZED UPPER ABDOMEN: Unremarkable. OTHER FINDINGS: None. IMPRESSION: Cardiomegaly. Central vascular prominence. Mild pulmonary venous congestion. Assessment & Plan (1) Abdominal pain Status: Acute Priority: High (2) Bacteremia Status: Acute (3) Hypotension Status: Acute (4) Status post appendectomy Status: Acute - Assessment and Plan (Free Text) Assessment: A/p- 72 year old male with recent lap appendectomy on 03/15/2018 readmitted because blood cx were reported positive. plan- check repeat blood cx x 2. await ID and sensitivity of the GPC in chains. check ECHO r/o vegetations. advise to continue with current IV vanco and zosyn and flagyl day #2. keep vanco trough <20. advise surgical f/u for evaluation of the echymosis. all lab and imaging and note reviewed. All above d/w patient and he verbalizes full understanding of all above and agrees with above plan of care. Critical care time spent 50 minutes.
--- NOTE | 2018-03-20 08:56 | CP.PCM.PN ---
Subjective - Date & Time of Evaluation Date of Evaluation: 03/20/18 Time of Evaluation: 08:54 - Subjective Subjective: Surgery PT seen and examined. No acute events. Denies fever, nausea, vomiting, diarrhea, CP , SOB, abd pain. TOlerating diet. Objective - Vital Signs/Intake and Output Vital Signs (last 24 hours): Temp Pulse Resp BP Pulse Ox 98.7 F 64 13 142/75 96 03/20/18 07:55 03/20/18 07:55 03/20/18 07:55 03/20/18 07:55 03/20/18 07:55 Intake and Output: 03/20/18 03/20/18 06:59 18:59 Intake Total 1000 Output Total 2400 Balance -1400 - Medications Medications: Current Medications Acetaminophen (Tylenol 325mg Tab) 650 mg PO Q6 PRN PRN Reason: Other Aspirin (Ecotrin) 325 mg PO DAILY [facility] Atorvastatin Calcium (Lipitor) 10 mg PO DAILY [facility] Carvedilol (Coreg) 12.5 mg PO Q12 [facility] Vancomycin HCl 1 gm/ Sodium (Chloride) 250 mls @ 166.667 mls/hr IVPB DAILY [facility]; Protocol Piperacillin Sod/Tazobactam (Sod 2.25 gm/ Sodium Chloride) 100 mls @ 100 mls/hr IVPB Q6 [facility]; Protocol Last Admin: 03/20/18 03:57 Dose: 100 mls/hr Metronidazole (Flagyl 500mg/100ml Ns) 100 mls @ 100 mls/hr IVPB Q8H [facility]; Protocol Last Admin: 03/20/18 06:35 Dose: 100 mls/hr Tamsulosin HCl (Flomax) 0.4 mg PO DAILY [facility] Tramadol HCl (Ultram) 50 mg PO Q6 PRN PRN Reason: Pain, severe (8-10) Last Admin: 03/20/18 04:05 Dose: 50 mg - Labs Labs: 03/20/18 05:01 03/20/18 05:01 PT 13.4 Seconds (9.8-13.1) H 03/20/18 05:01 INR 1.2 03/20/18 05:01 APTT 32.2 Seconds (25.6-37.1) 03/20/18 05:01 - Constitutional Appears: No Acute Distress - Head Exam Head Exam: ATRAUMATIC, NORMAL INSPECTION, NORMOCEPHALIC - Eye Exam Eye Exam: EOMI, Normal appearance, PERRL Pupil Exam: NORMAL ACCOMODATION, PERRL - ENT Exam ENT Exam: Mucous Membranes Moist - Neck Exam Neck Exam: Normal Inspection - Respiratory Exam Respiratory Exam: NORMAL BREATHING PATTERN - Cardiovascular Exam Cardiovascular Exam: REGULAR RHYTHM - GI/Abdominal Exam GI & Abdominal Exam: Soft. absent: Distended, Tenderness Additional comments: ecchymosis around the incision sites. - Rectal Exam Rectal Exam: NORMAL INSPECTION - Exam Exam: NORMAL INSPECTION - Extremities Exam Extremities Exam: Normal Inspection - Back Exam Back Exam: NORMAL INSPECTION - Neurological Exam Neurological Exam: Alert, Awake, CN II-XII Intact, Normal Gait, Oriented x3 - Psychiatric Exam Psychiatric exam: Normal Affect, Normal Mood - Skin Skin Exam: Dry, Intact, Warm Assessment and Plan - Assessment and Plan (Free Text) Assessment: 72 M w bacteremia POD 5 s/p appedectomy -ABX -Repeat blood cx -No surgical intervention at this time MIRANDA Fu
[2018-03-20] MEDS ORDERED: Aspirin 325 mg EC Tablets PO SCH (09:00)
--- NOTE | 2018-03-20 13:25 | CP.PCM.PN ---
Objective - Vital Signs/Intake and Output Vital Signs (last 24 hours): Temp Pulse Resp BP Pulse Ox 98.7 F 58 L 16 139/78 96 03/20/18 07:55 03/20/18 12:00 03/20/18 12:00 03/20/18 12:00 03/20/18 07:55 Intake and Output: 03/20/18 03/20/18 06:59 18:59 Intake Total 1000 900 Output Total 2400 500 Balance -1400 400 - Medications Medications: Current Medications Acetaminophen (Tylenol 325mg Tab) 650 mg PO Q6 PRN PRN Reason: Other Aspirin (Ecotrin) 325 mg PO DAILY [facility] Last Admin: 03/20/18 09:46 Dose: 325 mg Atorvastatin Calcium (Lipitor) 10 mg PO DAILY [facility] Last Admin: 03/20/18 09:46 Dose: 10 mg Carvedilol (Coreg) 12.5 mg PO Q12 [facility] Last Admin: 03/20/18 09:43 Dose: 12.5 mg Vancomycin HCl 1 gm/ Sodium (Chloride) 250 mls @ 166.667 mls/hr IVPB DAILY [facility]; Protocol Last Admin: 03/20/18 09:42 Dose: 166.667 mls/hr Piperacillin Sod/Tazobactam (Sod 2.25 gm/ Sodium Chloride) 100 mls @ 100 mls/hr IVPB Q6 [facility]; Protocol Last Admin: 03/20/18 09:46 Dose: 100 mls/hr Metronidazole (Flagyl 500mg/100ml Ns) 100 mls @ 100 mls/hr IVPB Q8H [facility]; Protocol Last Admin: 03/20/18 06:35 Dose: 100 mls/hr Tamsulosin HCl (Flomax) 0.4 mg PO DAILY [facility] Last Admin: 03/20/18 09:46 Dose: 0.4 mg Tramadol HCl (Ultram) 50 mg PO Q6 PRN PRN Reason: Pain, severe (8-10) Last Admin: 03/20/18 04:05 Dose: 50 mg - Labs Labs: 03/20/18 05:01 03/20/18 05:01 PT 13.4 Seconds (9.8-13.1) H 03/20/18 05:01 INR 1.2 03/20/18 05:01 APTT 32.2 Seconds (25.6-37.1) 03/20/18 05:01
--- NOTE | 2018-03-20 19:42 | CARD ---
APPROVED REPORT Date of service: 03/20/2018 EXAM: Two-dimensional and M-mode echocardiogram with Doppler and color Doppler. Other Information Quality : GoodRhythm : NSR INDICATION Infection:Subacute bacterial endocarditis 2D DIMENSIONS IVSd1.56 (0.7-1.1cm)LVDd4.40 (3.9-5.9cm) LVOT Diameter2.23 (1.8-2.4cm)PWd1.22 (0.7-1.1cm) IVSs1.94 (0.8-1.2cm)LVDs2.70 (2.5-4.0cm) FS (%) 38.6 %PWs1.67 (0.8-1.2cm) M-Mode DIMENSIONS Left Atrium (MM)4.27 (2.5-4.0cm)IVSd1.26 (0.7-1.1cm) Aortic Root3.87 (2.2-3.7cm)LVDd5.33 (4.0-5.6cm) Aortic Cusp Exc.2.32 (1.5-2.0cm)PWd0.99 (0.7-1.1cm) IVSs1.89 cmFS (%) 58 % LVDs2.22 (2.0-3.8cm)PWs2.35 cm Aortic Valve AoV Peak Vgklroqa606.1cm/sAoV VTI25.1cmAO Peak GR.7mmHg LVOT Peak Hwzdytac88.4cm/sLVOT VTI18.14cmAO Mean GR.3mmHg JENNI (VMAX)1.33jw2DQL (VTI)1.35cm2 Mitral Valve MV E Nlqapdxm44.9cm/sMV DECEL [id number] A Jbxgyntv25.9cm/s MV HPQ10rlN/A ratio1.2MVA (PHT)3.70cm2 TDI Lateral E' Peak V8.96cm/sMedial E' Peak V9.94cm/sE/Lateral E'8.9 E/Medial E'8.0 Tricuspid Valve TR Peak Ugdyhqdq990ah/sRAP XBXRNEOV73cmOgSA Peak Gr.25mmHg HZAX50nrGo LEFT VENTRICLE The left ventricle is normal size. There is mild concentric left ventricular hypertrophy. The left ventricular systolic function is normal. The estimated ejection fraction is 60-65% No regional wall motion abnormalities noted.. Transmitral Doppler flow pattern is Grade II-pseudonormal filling dynamics. No left ventricle thrombus noted on this study. There is no ventricular septal defect visualized. There is no left ventricular aneurysm. There is no mass noted in the left ventricle. RIGHT VENTRICLE The right ventricle is normal size. There is normal right ventricular wall thickness. The right ventricular systolic function is normal. ATRIA The left atrium is mildly dilated. The right atrium size is normal. The interatrial septum is intact with no evidence for an atrial septal defect. AORTIC VALVE The aortic valve is normal in structure. No aortic regurgitation is present. There is no aortic valvular stenosis. There is no aortic valvular vegetation. MITRAL VALVE The mitral valve is normal in structure. There is no evidence of mitral valve prolapse. There is no mitral valve stenosis. There is trace to mild mitral valve regurgitation noted. TRICUSPID VALVE The tricuspid valve is normal in structure. There is mild tricuspid valve regurgitation noted. RVSP is calculated at 36 mm Hg. There is no tricuspid valve prolapse or vegetation. There is no tricuspid valve stenosis. PULMONIC VALVE The pulmonary valve is normal in structure. There is no pulmonic valvular regurgitation. There is no pulmonic valvular stenosis. GREAT VESSELS The aortic root is mildly enlarged. The ascending aorta is normal in size. The pulmonary artery is normal. The IVC is normal in size and collapses >50% with inspiration. PERICARDIAL EFFUSION There is no pericardial effusion. There is no pleural effusion. <Conclusion> There is mild concentric left ventricular hypertrophy. The estimated ejection fraction is 60-65% Transmitral Doppler flow pattern is Grade II-pseudonormal filling dynamics. The left atrium is mildly dilated. There is trace to mild mitral valve regurgitation noted. There is mild tricuspid valve regurgitation noted. RVSP is calculated at 36 mm Hg. No evidence of endocarditis on this study. Correlate clinically.
--- NOTE | 2018-03-20 20:55 | CP.PCM.HP ---
History of Present Illness - History of Present Illness History of Present Illness: 72 y/o M, S/P Appendectomy on 03/15/18, Hx of HTN, DM, Hyerlipidemia, Asthma, [facility], after being discharge on 03/18/18 and He was called to come back to ER because Blood C-S were reported positive. Off note: Initially, Pt refused to come to hospital but at the request of his sister he returned for continue Tx. Worsening symptoms: Pt developed weakness associated to Low BP 79/43 HR 62 on arrival to ED, no other c/o. No aggravated factor. Pt denied: Fever, chllls, n/v/d, abdominal pain, urinary symptoms, CP, syncope, headcahe, SOB, cough. Abdomen/Pelvis CT: B/L renal calculus disease R>L. Diverticulosis. Hepatic steatosis. Atelectasis lung bases. CXR: Cardiomegaly, mild pulmonary venous congestion. Present on Admission - Present on Admission Any Indicators Present on Admission: No Review of Systems - Constitutional Constitutional: Weakness - EENT Eyes: Requires Corrective Lenses Ears: Other (negative) - Cardiovascular Cardiovascular: Slow Heart Rate - Gastrointestinal Gastrointestinal: Other (negative) - Genitourinary Genitourinary: Other (negative) - Musculoskeletal Musculoskeletal: Other (negative) - Integumentary Integumentary: Other (Ecchymosis) - Neurological Neurological: Other (negative) - Psychiatric Psychiatric: Other (negative) - Endocrine Endocrine: Other (negative) - Hematologic/Lymphatic Hematologic: Other (negative) Past Patient History - Past Medical History & Family History Past Medical History?: Yes Pertinent Family History: Mother and brother: [place] - Past Social History Smoking Status: Current Some Days Smoker Alcohol: < 2 Drinks/Day ([employer]) Drugs: Cannabis, Opiates Home Situation {Lives}: Alone - CARDIAC Hx Cardiac Disorders: Yes (CAD) Hx Hypercholesterolemia: Yes Hx Hypertension: Yes - PULMONARY Hx Respiratory Disorders: Yes Hx Asthma: Yes - NEUROLOGICAL Hx Neurological Disorder: No - HEENT Hx HEENT Problems: Yes (wear eyeglasses) - RENAL Hx Chronic Kidney Disease: No - ENDOCRINE/METABOLIC Hx Endocrine Disorders: Yes Hx Diabetes Mellitus Type 2: Yes - HEMATOLOGICAL/ONCOLOGICAL Hx Blood Disorders: Yes Hx Cancer: Yes (Prostate) - INTEGUMENTARY Hx Dermatological Problems: No - MUSCULOSKELETAL/RHEUMATOLOGICAL Hx Musculoskeletal Disorders: No Hx Falls: No - GASTROINTESTINAL Hx Gastrointestinal Disorders: No - GENITOURINARY/GYNECOLOGICAL Hx Genitourinary Disorders: Yes Hx Prostate Cancer: Yes - PSYCHIATRIC Hx Psychophysiologic Disorder: No Hx Substance Use: No - SURGICAL HISTORY Hx Surgeries: Yes Hx Appendectomy: Yes (on 03/15/2018) - ANESTHESIA Hx Anesthesia: Yes Hx Anesthesia Reactions: No Hx Malignant Hyperthermia: Yes Meds Allergies/Adverse Reactions: Allergies Allergy/AdvReac Type Severity Reaction Status Date / Time No Known Allergies Allergy Verified 03/19/18 12:32 Physical Exam - Constitutional Appears: No Acute Distress - Head Exam Head Exam: NORMAL INSPECTION - Eye Exam Eye Exam: PERRL - ENT Exam ENT Exam: Normal Oropharynx - Neck Exam Neck exam: Positive for: Normal Inspection - Respiratory Exam Respiratory Exam: NORMAL BREATHING PATTERN - Cardiovascular Exam Cardiovascular Exam: REGULAR RHYTHM - GI/Abdominal Exam GI & Abdominal Exam: Distended (mild), Normal Bowel Sounds, Soft. absent: Guarding, Rebound, Tenderness Additional comments: Surgical incisions from Lap Iris healing well ecchymosois around areas of surgical incisions - Exam Additional comments: Leal Cath - Extremities Exam Extremities exam: Positive for: normal inspection - Back Exam Back exam: NORMAL INSPECTION - Neurological Exam Neurological exam: Alert, Oriented x3 Additional comments: No motor/sensory deficit. - Psychiatric Exam Psychiatric exam: Normal Affect, Normal Mood - Skin Skin Exam: Warm Results - Vital Signs Recent Vital Signs: Last Vital Signs Temp 97.9 F 03/20/18 16:00 Pulse 63 03/20/18 14:00 Resp 20 03/20/18 15:25 BP 142/79 03/20/18 15:25 Pulse Ox 96 03/20/18 07:55 reviewed J.P. - Labs Result Diagrams: 03/21/18 05:20 03/21/18 05:20 Labs: Laboratory Results - last 24 hr 03/19/18 03/20/18 03/20/18 22:01 05:01 05:01 WBC 7.7 RBC 3.92 L Hgb 10.8 L Hct 33.9 L MCV 86.5 D MCH 27.7 MCHC 32.0 L RDW 15.3 H Plt Count 140 MPV 10.7 Neut % (Auto) 62.7 Lymph % (Auto) 14.3 L [place] % (Auto) 16.7 H Eos % (Auto) 5.1 H Baso % (Auto) 1.2 Neut # (Auto) 4.8 Lymph # (Auto) 1.1 [place] # (Auto) 1.3 H Eos # (Auto) 0.4 Baso # (Auto) 0.1 PT 13.4 H INR 1.2 APTT 32.2 Sodium Potassium Chloride Carbon Dioxide Anion Gap BUN Creatinine Est GFR ( Amer) Est GFR (Non-Af Amer) POC Glucose (mg/dL) 144 H Random Glucose Lactic Acid Calcium Total Bilirubin AST ALT Alkaline Phosphatase Total Protein Albumin Globulin Albumin/Globulin Ratio 03/20/18 03/20/18 03/20/18 05:01 05:01 06:20 WBC RBC Hgb Hct MCV MCH MCHC RDW Plt Count MPV Neut % (Auto) Lymph % (Auto) [place] % (Auto) Eos % (Auto) Baso % (Auto) Neut # (Auto) Lymph # (Auto) [place] # (Auto) Eos # (Auto) Baso # (Auto) PT INR APTT Sodium 138 Potassium 3.7 Chloride 109 H Carbon Dioxide 21 L Anion Gap 12 BUN 14 Creatinine 1.3 Est GFR ( Amer) > 60 Est GFR (Non-Af Amer) 54 POC Glucose (mg/dL) 121 H Random Glucose 135 H Lactic Acid 0.9 Calcium 8.7 Total Bilirubin 1.9 H AST 58 ALT 51 Alkaline Phosphatase 76 Total Protein 7.0 Albumin 3.4 L Globulin 3.6 Albumin/Globulin Ratio 1.0 03/20/18 03/20/18 11:48 16:40 WBC RBC Hgb Hct MCV MCH MCHC RDW Plt Count MPV Neut % (Auto) Lymph % (Auto) [place] % (Auto) Eos % (Auto) Baso % (Auto) Neut # (Auto) Lymph # (Auto) [place] # (Auto) Eos # (Auto) Baso # (Auto) PT INR APTT Sodium Potassium Chloride Carbon Dioxide Anion Gap BUN Creatinine Est GFR ( Amer) Est GFR (Non-Af Amer) POC Glucose (mg/dL) 206 H 142 H Random Glucose Lactic Acid Calcium Total Bilirubin AST ALT Alkaline Phosphatase Total Protein Albumin Globulin Albumin/Globulin Ratio reviewed J.P. - Imaging and Cardiology Chest x-ray Status: Report reviewed by me (J.P.) CT scan - abdomen Status: Report reviewed by me (Jairo) CT scan - pelvis Status: Report reviewed by (Jairo) Assessment & Plan (1) Bacteremia Status: Acute (2) Hypotension Status: Acute (3) Status post appendectomy Status: Acute - Assessment and Plan (Free Text) Plan: In ER Patient was treated for Hypotension with IVF, empirically He was started on Vanco Zosyn Clinda, Patient responded well and BP normalized. F/U Blood C-S, Urine C-S, Echo, BP 139/78, continue NC 2 L/M, IV fluid, Flagyl, Vanco, Zosyn, Coreg, ASA and rest of Tx. Intensive care unit time: 50 minutes. - Date & Time Date: 03/20/18 Time: 12:30
[2018-03-21] MEDS: metroNIDAZOLE 500mg/100ml NS 100 ML IVPB SCH ×2 (00:18→06:14)
[2018-03-21 04:21] VITALS: O2SAT 99
[2018-03-21 04:51] VITALS: BP 153/72; PULSE 61; RESP 22; TEMP 98.7
[2018-03-21 06:10] LABS: HEMOGLOBIN 12.3 g/dL (12.0-18.0); MEAN CELL VOLUME 86.8 fl (80.0-94.0); MEAN CORPUSCULAR HEMOGLOBIN 27.8 pg (27.0-31.0); MEAN CORPUSCULAR HGB CONC 32.1 g/dL (33.0-37.0); RBC 4.41 Mil/uL (4.40-5.90); RED CELL DISTRIBUTION WIDTH 15.1 % (11.5-14.5); WHITE BLOOD COUNT 8.6 K/uL (4.8-10.8)
[2018-03-21 06:20] LABS: BLOOD UREA NITROGEN 13 mg/dl (9-20); CALCIUM 9.4 mg/dL (8.4-10.2); GFR NON-AFRICAN AMERICAN > 60
--- NOTE | 2018-03-22 13:31 | CP.PCM.DIS ---
Provider - Provider Date of Admission: 03/19/18 13:53 Attending physician: Shakeel Floyd MD Consults: Physician-Dr. Fu ID-Dr. Lee Time Spent in preparation of Discharge (in minutes): 25 Diagnosis - Discharge Diagnosis (1) Bacteremia Status: Acute Comment: Sepsis was ruled out (2) Hypotension Status: Acute (3) Status post appendectomy Status: Acute Hospital Course - Lab Results Lab Results: Micro Results 03/19/18 13:05 Blood-Venous Blood Culture - Preliminary NO GROWTH AFTER 3 DAYS 03/19/18 17:30 Blood-Venous Blood Culture - Preliminary NO GROWTH AFTER 48 HOURS 03/19/18 19:16 Naris MRSA Culture (Admit) - Final MRSA NOT DETECTED 03/19/18 14:32 Urine Urine Culture - Final No Growth (<1,000 CFU/ML) Most Recent Lab Values WBC 8.6 K/uL (4.8-10.8) 03/21/18 05:20 RBC 4.41 Mil/uL (4.40-5.90) 03/21/18 05:20 Hgb 12.3 g/dL (12.0-18.0) 03/21/18 05:20 Hct 38.3 % (35.0-51.0) 03/21/18 05:20 MCV 86.8 fl (80.0-94.0) 03/21/18 05:20 MCH 27.8 pg (27.0-31.0) 03/21/18 05:20 MCHC 32.1 g/dL (33.0-37.0) L 03/21/18 05:20 RDW 15.1 % (11.5-14.5) H 03/21/18 05:20 Plt Count 176 K/uL (130-400) 03/21/18 05:20 MPV 10.7 fl (7.2-11.7) 03/20/18 05:01 Neut % (Auto) 62.7 % (50.0-75.0) 03/20/18 05:01 Lymph % (Auto) 14.3 % (20.0-40.0) L 03/20/18 05:01 [place] % (Auto) 16.7 % (0.0-10.0) H 03/20/18 05:01 Eos % (Auto) 5.1 % (0.0-4.0) H 03/20/18 05:01 Baso % (Auto) 1.2 % (0.0-2.0) 03/20/18 05:01 Neut # (Auto) 4.8 K/uL (1.8-7.0) 03/20/18 05:01 Lymph # (Auto) 1.1 K/uL (1.0-4.3) 03/20/18 05:01 [place] # (Auto) 1.3 K/uL (0.0-0.8) H 03/20/18 05:01 Eos # (Auto) 0.4 K/uL (0.0-0.7) 03/20/18 05:01 Baso # (Auto) 0.1 K/uL (0.0-0.2) 03/20/18 05:01 PT 13.4 Seconds (9.8-13.1) H 03/20/18 05:01 INR 1.2 03/20/18 05:01 APTT 32.2 Seconds (25.6-37.1) 03/20/18 05:01 pO2 27 mm/Hg (30-55) L 03/19/18 16:30 VBG pH 7.36 (7.32-7.43) 03/19/18 16:30 VBG pCO2 38 mmHg (40-60) L 03/19/18 16:30 VBG HCO3 20.8 mmol/L 03/19/18 16:30 VBG Total CO2 22.7 mmol/L (22-28) 03/19/18 16:30 VBG O2 Sat (Calc) 49.9 % (40-65) 03/19/18 16:30 VBG Base Excess -3.6 mmol/L (0.0-2.0) L 03/19/18 16:30 VBG Potassium 3.8 mmol/L (3.6-5.2) 03/19/18 16:30 Sodium 137.0 mmol/L (132-148) 03/19/18 16:30 Chloride 108.0 mmol/L (98-107) H 03/19/18 16:30 Glucose 157 mg/dL (75-110) H 03/19/18 16:30 Lactate 1.3 mmol/L (0.7-2.1) 03/19/18 16:30 FiO2 21.0 % 03/19/18 16:30 Sodium 139 mmol/l (132-148) 03/21/18 05:20 Potassium 3.7 MMOL/L (3.6-5.0) 03/21/18 05:20 Chloride 108 mmol/L (98-107) H 03/21/18 05:20 Carbon Dioxide 22 mmol/L (22-30) 03/21/18 05:20 Anion Gap 13 (10-20) 03/21/18 05:20 BUN 13 mg/dl (9-20) 03/21/18 05:20 Creatinine 1.1 mg/dl (0.8-1.5) 03/21/18 05:20 Est GFR ( Amer) > 60 03/21/18 05:20 Est GFR (Non-Af Amer) > 60 03/21/18 05:20 POC Glucose (mg/dL) 127 mg/dL (65-110) H 03/21/18 05:37 Random Glucose 134 mg/dL (75-110) H 03/21/18 05:20 Lactic Acid 0.9 MMOL/L (0.7-2.1) 03/20/18 05:01 Calcium 9.4 mg/dL (8.4-10.2) 03/21/18 05:20 Total Bilirubin 1.9 mg/dl (0.2-1.3) H 03/20/18 05:01 AST 58 U/L (17-59) 03/20/18 05:01 ALT 51 U/L (21-72) 03/20/18 05:01 Alkaline Phosphatase 76 U/L (38-126) 03/20/18 05:01 Total Protein 7.0 G/DL (6.3-8.2) 03/20/18 05:01 Albumin 3.4 g/dL (3.5-5.0) L 03/20/18 05:01 Globulin 3.6 gm/dL (2.2-3.9) 03/20/18 05:01 Albumin/Globulin Ratio 1.0 (1.0-2.1) 03/20/18 05:01 Venous Blood Potassium 3.8 mmol/L (3.6-5.2) 03/19/18 16:30 Urine Color Yellow (YELLOW) 03/19/18 14:32 Urine Clarity Cloudy (Clear) 03/19/18 14:32 Urine pH 6.0 (5.0-8.0) 03/19/18 14:32 Ur Specific [place] 1.013 (1.003-1.030) 03/19/18 14:32 Urine Protein Negative mg/dL (NEGATIVE) 03/19/18 14:32 Urine Glucose (UA) 50 mg/dL (Normal) 03/19/18 14:32 Urine Ketones Negative mg/dL (NEGATIVE) 03/19/18 14:32 Urine Blood Small (NEGATIVE) 03/19/18 14:32 Urine Nitrate Negative (NEGATIVE) 03/19/18 14:32 Urine Bilirubin Negative (NEGATIVE) 03/19/18 14:32 Urine Urobilinogen 0.2-1.0 mg/dL (0.2-1.0) 03/19/18 14:32 Ur Leukocyte Esterase Large Cynthia/uL (Negative) 03/19/18 14:32 Urine RBC (Auto) 12 /hpf (0-3) H 03/19/18 14:32 Urine Microscopic WBC 68 /hpf (0-5) H 03/19/18 14:32 Ur Squamous Epith Cells < 1 /hpf (0-5) 03/19/18 14:32 Urine Bacteria Mod (<OCC) H 03/19/18 14:32 - Date & Time of H&P Date of H&P: 03/20/18 Time of H&P: 12:30 Discharge Exam - Head Exam Head Exam: NORMAL INSPECTION Discharge Plan - Follow Up Plan Condition: GUARDED Disposition: AGAINST MEDICAL ADVICE
== END 2018-03-21 06:45 | disposition left against medical advice (07) | DRG 872 ==
LOC: H.ER 12:27 → H.ERHOLD 13:53 → H.ICU/CCU 18:00
PROVIDERS: ADMIT Internal Medicine Pulmonary Disease; ATTEND Internal Medicine Pulmonary Disease
DX: R78.81 Bacteremia (principal); J98.11 Atelectasis; I95.9 Hypotension, unspecified; E11.9 Type 2 diabetes mellitus without complications; E78.00 Pure hypercholesterolemia, unspecified; E78.5 Hyperlipidemia, unspecified; F17.290 Nicotine dependence, other tobacco product, uncomplicated; I10 Essential (primary) hypertension; I25.10 Atherosclerotic heart disease of native coronary artery without angina pectoris; J45.909 Unspecified asthma, uncomplicated; I51.7 Cardiomegaly; K57.90 Diverticulosis of intestine, part unspecified, without perforation or abscess without bleeding; K76.0 Fatty (change of) liver, not elsewhere classified; N20.0 Calculus of kidney; Z79.82 Long term (current) use of aspirin; Z85.46 Personal history of malignant neoplasm of prostate; Z90.49 Acquired absence of other specified parts of digestive tract